=== PATIENT | female | born 1950 | race Caucasian/White ===

== ENCOUNTER 2020-12-27 10:31 | Observation (INO) | payer MEDICARE, BC ==
[2020-12-27] MEDS ORDERED: Sodium Chloride 0.9% 1,000 ML IV ONE (11:21)
[2020-12-27] MEDS ORDERED: Sodium Chloride 0.9% 2.5 ML Syringe FLUSH PRN (11:21)
[2020-12-27] MEDS ORDERED: Sodium Chloride 0.9% 10 ML Syringe FLUSH PRN (11:21)
--- NOTE | 2020-12-27 11:29 | PCM.EKG ---
#1 Interpretation EKG Date: 12/27/20 Time: 11:27 Rhythm: NSR Rate (Beats/Min): 83 ST-T: Normal
[2020-12-27 12:02] LABS: CARBON DIOXIDE,CO2 31.8 mmol/L (21.0-32.0)
[2020-12-27 12:16] LABS: POTASSIUM,K 2.6 mmol/L (3.5-5.1)
[2020-12-27] MEDS ORDERED: Ondansetron 4 MG/2 ML SDV IVPUSH ONE (12:16)
[2020-12-27] MEDS ORDERED: Potassium Chloride Riders 40 MEQ in Premix Bag 1 BAG IV ONE ×2 (12:21→12:45)
--- NOTE | 2020-12-27 12:28 | EDM.PDOC ---
ED HPI GENERAL MEDICAL PROBLEM - General Chief Complaint: General Stated Complaint: LOW K Time Seen by Provider: 12/27/20 10:32 Source of Information: Reports: Patient History Limitations: Reports: No Limitations - History of Present Illness INITIAL COMMENTS - FREE TEXT/NARRATIVE: HISTORY AND PHYSICAL: History of present illness: Patient is a 70-year-old female presents emergency room today with concern of low potassium and dizziness/near syncope x5 days. Patient states that she has had a complex medical history including breast cancer but is currently in remission for this. Patient states that she did have a skin biopsy that showed stage II keratosis which she is following with her primary care provider in [place] for. Patient states that she has been having routine labs drawn every 3 months due to her cancer history and recently had it checked with her primary care provider in [place]. Patient states that last week her potassium was low and so her primary care provider repleted this and she left [place] with her potassium at 3.6. Patient states that her primary care wanted to repeat the potassium yesterday and she had this drawn at the clinic and sent to [place]. Patient was called today stating she needed to come to the emergency room because her potassium was 2.6. Patient states that a week ago she was diagnosed with influenza and had associated her dizziness/near syncope episodes associated with the congestion from influenza. Patient states that she has been coughing up "a lot of mucus "and has been short of breath with exertion and related this to the influenza infection. Patient states that she is currently taking 60 mg of potassium today and states that she typically takes 80 mg daily. Patient denies fever, chills, chest pain. Denies headache, neck stiff ness, change in vision, syncope. Denies nausea, vomiting, abdominal pain, diarrhea, constipation, or dysuria. Has not noted any blood in urine or stool. Patient has been eating and drinking appropriately. Review of systems: As per history of present illness and below otherwise all systems reviewed and negative. Past medical history: As per history of present illness and as reviewed below otherwise noncontributory. Surgical history: As per history of present illness and as reviewed below otherwise noncontributory. Social history: See social history for further information Family history: As per history of present illness and as reviewed below otherwise noncontributory. Physical exam: General: Patient is alert, oriented, and in no acute distress. Patient sitting comfortably on exam table. Vitals stable and reviewed by me. HEENT: Atraumatic, normocephalic, pupils equal and reactive bilaterally, negative for conjunctival pallor or scleral icterus, mucous membranes moist, TMs normal bilaterally, throat clear, neck supple, nontender, trachea midline. No drooling or trismus noted. No meningeal signs. No hot potato voice noted. Lungs: Clear to auscultation, breath sounds equal bilaterally, chest nontender. Heart: S1S2, regular rate and rhythm without overt murmur Abdomen: Soft, nondistended, nontender. Negative for masses or hepatosplenomegaly. Negative for costovertebral tenderness. Pelvis: Stable nontender. Genitourinary: Deferred. Rectal: Deferred. Skin: Intact, warm, dry. No lesions or rashes noted. Extremities: Atraumatic, negative for cords or calf pain. Neurovascular unremarkable. Neuro: Awake, alert, oriented. Cranial nerves II through XII unremarkable. Cerebellum unremarkable. Motor and sensory unremarkable throughout. Exam non focal. Notes: Patient is a 70-year-old female who resents emergency room today with concern of low potassium, near syncope/lightheadedness, and dyspnea on exertion over the past 5 days. Upon arrival to the ED, patient is vitally stable and well- appearing on exam. However, while nursing staff obtaining IV access, patient does become dizzy and lightheaded sitting at the bedside which does improve when patient lays flat in the bed. She states that these are the dizzy episodes that she has been having over the past several days. Patient notes that she has had near syncope/possible syncopal episode last night but she does not want to explain much more than this so she does not want her to be concerned. Will perform cardiac evaluation, and head CT scan due to possible syncopal episode. See Dr. Elam's dictation for specific EKG interpretation. However, normal sinus rhythm with a rate of eighty-three without STEMI or signs of ischemic changes. Patient does express she is feeling nauseous. Zofran provided. CBC mild derangements are unremarkable. CMP noted to have a notably low potassium at 2.6. K rider initiated at this time. Creatinine mildly elevated at 1.1 and BUN mildly elevated at twenty-five. Troponin negative. Urinalysis clear. Covid/influenza negative. Head CT shows no acute intracranial abnormality. Paranasal sinus disease. Chest x-ray shows no acute cardiopulmonary disease. And CT shows no evidence of pulmonary embolism. Demonstration of likely reactive mediastinal and hilar lymph nodes with minimal groundglass opacity seen in the peripheral right upper lobe which may represent developing infiltrate versus sequela of inflammatory changes. There are likely posttreatment changes of the anterior right upper lobe pleura status post treatment change of overl arline right breast cancer. Postoperative changes status post likely thyroidectomy is appreciated. Moderate hiatal hernia and mild thickening of the upper esophagus this may represent sequela of peristolic or inflammatory changes. Mild to moderate central bronchial thickening and minimal air trapping within the lung bases. I did call and speak to the hospitalist on-call, Dr. Casillas, and thoroughly discussed patient's case. Will admit to observation on telemetry. Voices understanding and is agreeable to plan of care. Denies any further questions or concerns at this time. Diagnostics: EKG, CBC, CMP, UA, chest x-ray, magnesium, troponin, D-dimer, orthostatic vitals, COVID19, and CT, head CT Therapeutics: Normal saline, potassium rider, Zofran, Rocephin Impression: Hypokalemia Community-acquired pneumonia Dyspnea Plan: Admit to observation on telemetry to Dr. Casillas Definitive disposition and diagnosis as appropriate pending reevaluation and review of above. - Related Data Allergies Allergy/AdvReac Type Severity Reaction Status Date / Time diphenhydramine HCl Allergy Anaphylactic Verified 12/27/20 17:33 [From Benadryl] Shock scopolamine Allergy Nausea and Verified 12/27/20 17:33 Vomiting Home Meds: Home Meds Albuterol Sulfate [Proair Digihaler] 2 puff INH ASDIRECTED PRN 12/27/20 [ History] Calcium Carb, Citrate/Vit D3 [Calcium + D3 ER Tablet] 1 tab PO DAILY 12/27/20 [History] Cholecalciferol (Vitamin D3) [Vitamin D] 1 tab PO DAILY 12/27/20 [History] Citalopram [Citalopram HBr] 40 mg PO DAILY 12/27/20 [History] DULoxetine [Cymbalta] 60 mg PO DAILY 12/27/20 [History] Folic Acid 1 mg PO DAILY 12/27/20 [History] Ibandronate [Boniva] 150 mg PO DAILY 12/27/20 [History] Levothyroxine Sodium [Levoxyl] 75 mcg PO DAILY 12/27/20 [History] Magnesium 250 mg PO DAILY 12/27/20 [History] Omeprazole 20 mg PO DAILY 12/27/20 [History] Potassium Chloride 100 meq PO DAILY 12/27/20 [History] Rosuvastatin [Crestor] 20 mg PO BEDTIME 12/27/20 [History] atorvaSTATin [Lipitor] 40 mg PO DAILY 12/27/20 [History] Past Medical History Other HEENT History: Minimal lower teeth, trouble chewing "SOFT diet", RIGHT Inner Ear issues Other Respiratory History: Issues with breathing, noted in hospital when goes to sleep O2 sats drop (maybe needs sleep apnea study) but when awake always good, Restless at night too. / Maykel Spouse Other Musculoskeletal History: Current fracture Right Heel Psychiatric History: Reports: Anxiety Other Psychiatric History: Huge anxiety worse now with Pain Endocrine/Metabolic History: Reports: Osteoporosis Oncologic (Cancer) History: Reports: Breast - Infectious Disease History Infectious Disease History: Reports: Influenza - Past Surgical History Other GI Surgeries/Procedures: hx: Bowel obstruction with surgery Female Surgical History: Reports: Breast Biopsy Other Female Surgeries/Procedures: Numerous laparoscopies, eventually Hysterectomy. Cystitis Other Musculoskeletal Surgeries/Procedures:: Bilateral Total Knee ARthroplasties Social & Family History - Family History Family Medical History: No Pertinent Family History - Tobacco Use Tobacco Use Status *Q: Unknown Ever Used Tobacco - Recreational Drug Use Recreational Drug Use: No ED ROS GENERAL - Review of Systems Review Of Systems: Comprehensive ROS is negative, except as noted in HPI. ED EXAM, GENERAL - Physical Exam Exam: See Below (see dictation) Course - Vital Signs Last Recorded V/S: Last Vital Signs Temp 96.8 F L 12/27/20 16:51 Pulse 72 12/27/20 16:51 Resp 16 12/27/20 16:51 BP 106/59 L 12/27/20 16:51 Pulse Ox 99 12/27/20 16:51 - Orders/Labs/Meds Orders: Active Orders 24 hr Category Date Time Status Cardiac Monitoring [RC] . DIRECTED Care 12/27/20 11:21 Active Orthostatic Vital Signs [RC] ASDIRECTED Care 12/27/20 12:28 Active Sodium Chloride 0.9% [Saline Flush] Med 12/27/20 11:21 Active 10 ml FLUSH ASDIRECTED PRN Sodium Chloride 0.9% [Saline Flush] Med 12/27/20 11:21 Active 2.5 ml FLUSH ASDIRECTED PRN Saline Lock Insert [OM.PC] Stat Oth 12/27/20 11:21 Ordered Medication Orders Acetaminophen (Acetaminophen 325 Mg Tab) 650 mg PO Q4H PRN PRN Reason: Pain (Mild 1-3)/fever Albuterol/Ipratropium (Albuterol/Ipratropium 3.0-0.5 Mg/3 Ml Neb Soln) 3 ml NEB Q4HRRT PRN PRN Reason: Shortness Of Breath/wheezing Atorvastatin Calcium (Atorvastatin 40 Mg Tab) 40 mg PO DAILY ERIC Azithromycin (Azithromycin 500 Mg Vial) 250 mg IV Q24H ERIC Calcium Carbonate (Calcium Carbonate/Vitamin D3 1500 Mg-400 Units Tab) 1 tab PO DAILY ERIC Cholecalciferol (Cholecalciferol (Vitamin D3) 25 Mcg Tab) 125 mcg PO DAILY ERIC Duloxetine HCl (Duloxetine 60 Mg Cap) 60 mg PO DAILY ERIC Enoxaparin Sodium (Enoxaparin 40 Mg/0.4 Ml Syringe) 40 mg SUBCUT BEDTIME ERIC Folic Acid (Folic Acid 1 Mg Tab) 1 mg PO DAILY ERIC Lactated Ringer's (Ringers, Lactated) 1,000 mls @ 125 mls/hr IV ASDIRECTED ERIC Azithromycin 500 mg/ Sodium (Chloride) 250 mls @ 250 mls/hr IV ONETIME ERIC Ceftriaxone Sodium 1 gm/ (Sodium Chloride) 50 mls @ 100 mls/hr IV Q24H ERIC Levothyroxine Sodium (Levothyroxine 75 Mcg Tab) 75 mcg PO DAILY ERIC Mirtazapine (Mirtazapine 15 Mg Tab) 15 mg PO DAILY ERIC Sodium Chloride (Sodium Chloride 0.9% 10 Ml Syringe) 10 ml FLUSH ASDIRECTED PRN PRN Reason: Keep Vein Open Last Admin: 12/27/20 11:29 Dose: 10 ml Documented by: [id number] Sodium Chloride (Sodium Chloride 0.9% 2.5 Ml Syringe) 2.5 ml FLUSH ASDIRECTED PRN PRN Reason: Keep Vein Open Last Admin: 12/27/20 11:29 Dose: 2.5 ml Documented by: [id number] Labs: Laboratory Tests 12/27/20 12/27/2012/27/21 Range/Units 11:35 11:35 11:35 WBC 8.03 (4.0-11.0) K/uL RBC 4.65 (4.30-5.90) M/uL Hgb 12.6 (12.0-16.0) g/dL Hct 37.8 (36.0-46.0) % MCV 81.3 (80.0-98.0) fL MCH 27.1 (27.0-32.0) pg MCHC 33.3 (31.0-37.0) g/dL RDW Std Deviation 43.5 (28.0-62.0) fl RDW Coeff of Nancy 15 (11.0-15.0) % Plt Count 409 H (150-400) K/uL MPV 9.20 (7.40-12.00) fL Neut % (Auto) 64.9 (48.0-80.0) % Lymph % (Auto) 25.9 (16.0-40.0) % [place] % (Auto) 7.6 (0.0-15.0) % Eos % (Auto) 1.5 (0.0-7.0) % Baso % (Auto) 0.1 (0.0-1.5) % Neut # (Auto) 5.2 (1.4-5.7) K/uL Lymph # (Auto) 2.1 (0.6-2.4) K/uL [place] # (Auto) 0.6 (0.0-0.8) K/uL Eos # (Auto) 0.1 (0.0-0.7) K/uL Baso # (Auto) 0.0 (0.0-0.1) K/uL D-Dimer, Quantitative (0.0-0.50) mg/L FEU Sodium 139 (136-145) mmol/L Potassium 2.6 L (3.5-5.1) mmol/L Chloride 99 (98-107) mmol/L Carbon Dioxide 31.8 (21.0-32.0) mmol/L BUN 25 H (7.0-18.0) mg/dL Creatinine 1.1 H (0.6-1.0) mg/dL Est Cr Clr Drug Dosing 36.12 mL/min Estimated GFR (MDRD) 49.1 ml/min Glucose 93 (74-106) mg/dL Calcium 8.8 (8.5-10.1) mg/dL Magnesium (1.8-2.4) mg/dL Total Bilirubin 0.3 (0.2-1.0) mg/dL AST 31 (15-37) IU/L ALT 42 (14-63) IU/L Alkaline Phosphatase 108 (46-116) U/L Troponin I < 0.050 (0.000-0.056) ng/mL Total Protein 8.0 (6.4-8.2) g/dL Albumin 3.6 (3.4-5.0) g/dL Globulin 4.4 H (2.6-4.0) g/dL Albumin/Globulin Ratio 0.8 L (0.9-1.6) Urine Color Urine Appearance Urine pH (5.0-8.0) Ur Specific [place] (1.001-1.035) Urine Protein (NEGATIVE) mg/dL Urine Glucose (UA) (NEGATIVE) mg/dL Urine Ketones (NEGATIVE) mg/dL Urine Occult Blood (NEGATIVE) Urine Nitrite (NEGATIVE) Urine Bilirubin (NEGATIVE) Urine Urobilinogen (<2.0) EU/dL Ur Leukocyte Esterase (NEGATIVE) Influenza Type A RNA (NEGATIVE) Influenza Type B RNA (NEGATIVE) SARS-CoV-2 RNA (MARIO) (NEGATIVE) 12/27/20 12/27/20 12/27/20 Range/Units 11:35 11:48 12:36 WBC (4.0-11.0) K/uL RBC (4.30-5.90) M/uL Hgb (12.0-16.0) g/dL Hct (36.0-46.0) % MCV (80.0-98.0) fL MCH (27.0-32.0) pg MCHC (31.0-37.0) g/dL RDW Std Deviation (28.0-62.0) fl RDW Coeff of Nancy (11.0-15.0) % Plt Count (150-400) K/uL MPV (7.40-12.00) fL Neut % (Auto) (48.0-80.0) % Lymph % (Auto) (16.0-40.0) % [place] % (Auto) (0.0-15.0) % Eos % (Auto) (0.0-7.0) % Baso % (Auto) (0.0-1.5) % Neut # (Auto) (1.4-5.7) K/uL Lymph # (Auto) (0.6-2.4) K/uL [place] # (Auto) (0.0-0.8) K/uL Eos # (Auto) (0.0-0.7) K/uL Baso # (Auto) (0.0-0.1) K/uL D-Dimer, Quantitative 0.96 H (0.0-0.50) mg/L FEU Sodium (136-145) mmol/L Potassium (3.5-5.1) mmol/L Chloride (98-107) mmol/L Carbon Dioxide (21.0-32.0) mmol/L BUN (7.0-18.0) mg/dL Creatinine (0.6-1.0) mg/dL Est Cr Clr Drug Dosing mL/min Estimated GFR (MDRD) ml/min Glucose (74-106) mg/dL Calcium (8.5-10.1) mg/dL Magnesium 1.8 (1.8-2.4) mg/dL Total Bilirubin (0.2-1.0) mg/dL AST (15-37) IU/L ALT (14-63) IU/L Alkaline Phosphatase (46-116) U/L Troponin I (0.000-0.056) ng/mL Total Protein (6.4-8.2) g/dL Albumin (3.4-5.0) g/dL Globulin (2.6-4.0) g/dL Albumin/Globulin Ratio (0.9-1.6) Urine Color YELLOW Urine Appearance CLEAR Urine pH 6.5 (5.0-8.0) Ur Specific [place] 1.015 (1.001-1.035) Urine Protein NEGATIVE (NEGATIVE) mg/dL Urine Glucose (UA) NEGATIVE (NEGATIVE) mg/dL Urine Ketones NEGATIVE (NEGATIVE) mg/dL Urine Occult Blood NEGATIVE (NEGATIVE) Urine Nitrite NEGATIVE (NEGATIVE) Urine Bilirubin NEGATIVE (NEGATIVE) Urine Urobilinogen 0.2 (<2.0) EU/dL Ur Leukocyte Esterase NEGATIVE (NEGATIVE) Influenza Type A RNA (NEGATIVE) Influenza Type B RNA (NEGATIVE) SARS-CoV-2 RNA (MARIO) (NEGATIVE) 12/27/20 Range/Units 13:11 WBC (4.0-11.0) K/uL RBC (4.30-5.90) M/uL Hgb (12.0-16.0) g/dL Hct (36.0-46.0) % MCV (80.0-98.0) fL MCH (27.0-32.0) pg MCHC (31.0-37.0) g/dL RDW Std Deviation (28.0-62.0) fl RDW Coeff of Nancy (11.0-15.0) % Plt Count (150-400) K/uL MPV (7.40-12.00) fL Neut % (Auto) (48.0-80.0) % Lymph % (Auto) (16.0-40.0) % [place] % (Auto) (0.0-15.0) % Eos % (Auto) (0.0-7.0) % Baso % (Auto) (0.0-1.5) % Neut # (Auto) (1.4-5.7) K/uL Lymph # (Auto) (0.6-2.4) K/uL [place] # (Auto) (0.0-0.8) K/uL Eos # (Auto) (0.0-0.7) K/uL Baso # (Auto) (0.0-0.1) K/uL D-Dimer, Quantitative (0.0-0.50) mg/L FEU Sodium (136-145) mmol/L Potassium (3.5-5.1) mmol/L Chloride (98-107) mmol/L Carbon Dioxide (21.0-32.0) mmol/L BUN (7.0-18.0) mg/dL Creatinine (0.6-1.0) mg/dL Est Cr Clr Drug Dosing mL/min Estimated GFR (MDRD) ml/min Glucose (74-106) mg/dL Calcium (8.5-10.1) mg/dL Magnesium (1.8-2.4) mg/dL Total Bilirubin (0.2-1.0) mg/dL AST (15-37) IU/L ALT (14-63) IU/L Alkaline Phosphatase (46-116) U/L Troponin I (0.000-0.056) ng/mL Total Protein (6.4-8.2) g/dL Albumin (3.4-5.0) g/dL Globulin (2.6-4.0) g/dL Albumin/Globulin Ratio (0.9-1.6) Urine Color Urine Appearance Urine pH (5.0-8.0) Ur Specific [place] (1.001-1.035) Urine Protein (NEGATIVE) mg/dL Urine Glucose (UA) (NEGATIVE) mg/dL Urine Ketones (NEGATIVE) mg/dL Urine Occult Blood (NEGATIVE) Urine Nitrite (NEGATIVE) Urine Bilirubin (NEGATIVE) Urine Urobilinogen (<2.0) EU/dL Ur Leukocyte Esterase (NEGATIVE) Influenza Type A RNA NEGATIVE (NEGATIVE) Influenza Type B RNA NEGATIVE (NEGATIVE) SARS-CoV-2 RNA (MARIO) NEGATIVE (NEGATIVE) Meds: Medications Generic Name Dose Route Start Last Admin Trade Name Freq PRN Reason Stop Dose Admin Acetaminophen 650 mg 12/27/20 16:51 Acetaminophen 325 Mg Tab PO Q4H PRN Pain (Mild 1-3)/fever Albuterol/Ipratropium 3 ml 12/27/20 16:51 Albuterol/Ipratropium 3.0-0.5 Mg/3 Ml Neb Soln NEB Q4HRRT PRN Shortness Of Breath/wheezing Atorvastatin Calcium 40 mg 12/28/20 09:00 Atorvastatin 40 Mg Tab PO DAILY ERIC Azithromycin 250 mg 12/28/20 17:00 Azithromycin 500 Mg Vial IV Q24H ERIC Calcium Carbonate 1 tab 12/28/20 09:00 Calcium Carbonate/Vitamin D3 1500 Mg-400 Units Tab PO DAILY ERIC Cholecalciferol 125 mcg 12/28/20 09:00 Cholecalciferol (Vitamin D3) 25 Mcg Tab PO DAILY ERIC Duloxetine HCl 60 mg 12/28/20 09:00 Duloxetine 60 Mg Cap PO DAILY ERIC Enoxaparin Sodium 40 mg 12/27/20 21:00 Enoxaparin 40 Mg/0.4 Ml Syringe SUBCUT BEDTIME ERIC Folic Acid 1 mg 12/28/20 09:00 Folic Acid 1 Mg Tab PO DAILY ERIC Lactated Ringer's 1,000 mls @ 125 mls/hr 12/27/20 17:00 Ringers, Lactated IV ASDIRECTED [facility] Azithromycin 500 mg/ Sodium 250 mls @ 250 mls/hr 12/27/20 17:00 Chloride IV ONETIME ERIC Ceftriaxone Sodium 1 gm/ 50 mls @ 100 mls/hr 12/28/20 15:00 Sodium Chloride IV Q24H ERIC Levothyroxine Sodium 75 mcg 12/28/20 09:00 Levothyroxine 75 Mcg Tab PO DAILY ERIC Mirtazapine 15 mg 12/28/20 09:00 Mirtazapine 15 Mg Tab PO DAILY ERIC Sodium Chloride 10 ml 12/27/20 11:21 12/27/20 11:29 Sodium Chloride 0.9% 10 Ml Syringe FLUSH 10 ml ASDIRECTED PRN Administration Keep Vein Open Sodium Chloride 2.5 ml 12/27/20 11:21 12/27/20 11:29 Sodium Chloride 0.9% 2.5 Ml Syringe FLUSH 2.5 ml ASDIRECTED PRN Administration Keep Vein Open Discontinued Medications Generic Name Dose Route Start Last Admin Trade Name Freq PRN Reason Stop Dose Admin Sodium Chloride 1,000 mls @ 999 mls/hr 12/27/20 11:21 12/27/20 13:13 Normal Saline IV 12/27/20 12:21 150 mls/hr BOLUS ONE Infusion Potassium Chloride 40 meq/ 100 mls @ 25 mls/hr 12/27/20 12:21 12/27/20 13:14 Premix IV 12/27/20 16:20 Not Given ONETIME ONE Potassium Chloride 40 meq/ 100 mls @ 25 mls/hr 12/27/20 12:45 12/27/20 13:26 Premix IV 12/27/20 16:44 15 mls/hr ONETIME ONE Infusion Ceftriaxone Sodium/Dextrose 1 50 mls @ 100 mls/hr 12/27/20 15:23 12/27/20 15:31 gm/ Premix IV 12/27/20 15:52 100 mls/hr ONETIME ONE Administration Iopamidol 75 ml 12/27/20 14:55 12/27/20 14:56 Iopamidol 755 Mg/Ml 500 Ml Multipack Bottle IVPUSH 12/27/20 14:56 75 ml ONETIME ONE Administration Magnesium Oxide 800 mg 12/27/20 16:57 12/27/20 17:16 Magnesium Oxide 400 Mg Tab PO 12/27/20 16:58 800 mg ONETIME ONE Administration Ondansetron HCl 4 mg 12/27/20 12:16 12/27/20 12:55 Ondansetron 4 Mg/2 Ml Sdv IVPUSH 12/27/20 12:17 4 mg ONETIME ONE Administration Pneumococcal Polyvalent Vaccine 0.5 ml 12/27/20 18:44 Pneumococcal Polyvalent-23 Vaccine 0.5 Ml Sdv IM 12/27/20 18:45 .ONCE ONE Potassium Chloride 40 meq 12/27/20 16:51 12/27/20 17:16 Potassium Chloride 10% 20 Meq/15 Ml Soln 30 Ml Ud Cup PO 12/27/20 16:52 40 meq ONETIME ONE Administration Departure - Departure Time of Disposition: 15:29 Disposition: Refer to Observation Clinical Impression: Hypokalemia Community acquired pneumonia Qualifiers: Laterality: right Lung location: upper lobe of lung Qualified Code(s): J18.9 - Pneumonia, unspecified organism Dyspnea Qualifiers: Dyspnea type: dyspnea on exertion Qualified Code(s): R06.00 - Dyspnea, unspecified - Discharge Information Sepsis Event Note (ED) - Evaluation Sepsis Screening Result: No Definite Risk - Focused Exam Vital Signs: Vital Signs Temp Pulse Resp BP Pulse Ox 12/27/20 15:00 74 16 119/81 95 12/27/20 14:30 75 17 122/58 L 98 12/27/20 13:51 75 15 113/74 97 12/27/20 13:12 71 17 125/66 98 12/27/20 12:21 76 17 145/60 H 99 12/27/20 11:54 75 16 135/59 L 100 12/27/20 10:56 96.8 F L 94 17 133/80 97 - My Orders Last 24 Hours: My Active Orders 12/27/20 11:21 Cardiac Monitoring [RC] . DIRECTED Sodium Chloride 0.9% [Saline Flush] 10 ml FLUSH ASDIRECTED PRN Sodium Chloride 0.9% [Saline Flush] 2.5 ml FLUSH ASDIRECTED PRN Saline Lock Insert [OM.PC] Stat 12/27/20 12:28 Orthostatic Vital Signs [RC] ASDIRECTED - Assessment/Plan Last 24 Hours: My Active Orders 12/27/20 11:21 Cardiac Monitoring [RC] . DIRECTED Sodium Chloride 0.9% [Saline Flush] 10 ml FLUSH ASDIRECTED PRN Sodium Chloride 0.9% [Saline Flush] 2.5 ml FLUSH ASDIRECTED PRN Saline Lock Insert [OM.PC] Stat 12/27/20 12:28 Orthostatic Vital Signs [RC] ASDIRECTED
--- NOTE | 2020-12-27 12:57 | CR ---
INDICATION: Dyspnea. Productive cough. TECHNIQUE: Chest 1 view. COMPARISON: None FINDINGS: Cardiovascular and mediastinum: Heart size and vasculature are normal in caliber and appearance. Mediastinum is within normal limits. Lungs and pleural space: No consolidation or edema no pleural effusion. No pneumothorax. Bones and soft tissues: No acute findings. A foreign body overlies the right lower lung zone. IMPRESSION: No acute pulmonary process. Dictated by Alex Rojas MD @ 12/27/2020 12:55:[address] Alex Rojas @ Dec 27 2020 12:55PM
[2020-12-27 13:52] LABS: CORONAVIRUS COVID-19 NAA NEGATIVE (NEGATIVE); INFLUENZA A NAA NEGATIVE (NEGATIVE); INFLUENZA B NAA NEGATIVE (NEGATIVE)
--- NOTE | 2020-12-27 14:23 | CT ---
HISTORY: Syncope. TECHNIQUE: CT brain without contrast. COMPARISON: CT brain 06/05/2013. FINDINGS: No acute intracranial hemorrhage. No extra-axial collection. No mass effect or midline shift. No ventricular dilation. Cisterns are patent. Paz-white differentiation is maintained. Calvarium is intact. Complete opacification of the right maxillary sinus. Opacification of a majority of the right ethmoid air cells. Opacification of the inferior right frontal sinus. Mild mucosal thickening in the left sphenoid sinus. IMPRESSION: 1. No acute intracranial abnormality. 2. Paranasal sinus disease. Please note that all CT scans at this facility use dose modulation, iterative reconstruction, and/or weight-based dosing when appropriate to reduce radiation dose to as low as reasonably achievable. Dictated by Sanjay Dupree MD @ 12/27/2020 2:22:[address] Sanjay Dupree @ Dec 27 2020 2:22PM
[2020-12-27] MEDS ORDERED: Iopamidol 755 MG/ML 500 ML Multipack Bottle IVPUSH ONE (14:55)
--- NOTE | 2020-12-27 15:15 | CT ---
Indication: Dyspnea, elevated D-dimer, Technique: Volumetric multidetector CT images of the chest were obtained after the administration of IV contrast. 75 cc Isovue 370 low osmolar intravenous contrast Comparison: None available. Findings: Postoperative changes status post thyroidectomy are appreciated. Otherwise, the thoracic inlet is grossly unremarkable. The thoracic aorta is nonaneurysmal. There is no central filling defect to suggest pulmonary embolism. There are reactive appearing mediastinal and hilar lymph nodes. There is mild central bronchial thickening without evidence of dense consolidation. There is minimal basilar traction bronchiectasis. There is developing airspace opacities in the peripheral right upper lobes with dependent basilar atelectasis and parenchymal scarring. There is mild to moderate air trapping in the lower lobes. Pleural based posttreatment changes of the right anterior pleural space are appreciated commensurate with likely posttreatment changes from the adjacent right breast mass. There is demonstration noncalcified pulmonary nodule in the peripheral inferior right upper lobe on series 601, image 103 measuring 3.6 millimeters. No other suspicious pulmonary lesion is appreciated. The partially visualized upper abdomen demonstrates moderate hiatal hernia with mild thickening and patulous appearance of the proximal esophagus. The thoracic vertebral bodies are grossly preserved in height with straightening of the normal thoracic kyphosis and trace anterolisthesis of T2 on T3 as well as T5 on T6 with mild to moderate focal dextroscoliotic deformity of the proximal AP alignment. Impression: No evidence of pulmonary embolus. Demonstration of likely reactive mediastinal and hilar lymph nodes with minimal ground-glass opacity seen in the peripheral right upper lobe which may represent developing infiltrate versus sequela of inflammatory changes. There are likely posttreatment changes of the anterior right upper lobe pleura status post treatment change of overlying right breast cancer. Postoperative change status post total thyroidectomy is appreciated. Moderate hiatal hernia and mild thickening of the upper esophagus which may represent sequela of peristaltic or inflammatory changes. Mild to moderate central bronchial thickening and minimal air trapping within the lung bases. Please note that all CT scans at this facility use dose modulation, iterative reconstruction, and/or weight-based dosing when appropriate to reduce radiation dose to as low as reasonably achievable. Dictated by Mak Robbins MD @ 12/27/2020 3:14:[address] Mak Robbins @ Dec 27 2020 3:14PM
[2020-12-27] MEDS ORDERED: cefTRIAXone 1 GM in Premix Bag 1 BAG IV ONE (15:23)
[2020-12-27] MEDS ORDERED: Acetaminophen 325 MG Tab PO PRN (16:51)
[2020-12-27] MEDS ORDERED: Albuterol/Ipratropium 3.0-0.5 MG/3 ML Neb Soln NEB PRN (16:51)
[2020-12-27] MEDS ORDERED: Potassium Chloride 10% 20 MEQ/15 ML Soln 30 ML UD Cup PO ONE (16:51)
[2020-12-27] MEDS ORDERED: Magnesium Oxide 400 MG Tab PO ONE (16:57)
--- NOTE | 2020-12-27 16:57 | PCM.HP.2 ---
H&P History of Present Illness - General Date of Service: 12/28/20 Admit Problem/Dx: Admission Diagnosis/Problem Admission Diagnosis/Problem Hypokalemia - History of Present Illness Initial Comments - Free Text/Narative: Patient is a 70-year-old female with PMH of breast Ca, in remission, hypothyroidism, Squamous cell cancer, presents emergency room after being directed by her PCP to come to the ER due to low potassium on routine labs. Patient also feels dizzy/near syncope x5 days. Patient states that she did have a skin biopsy that showed stage II squamous cell ca which she is following with her primary care provider in [place] for. Patient states that last week her potassium was low and so her primary care provider repleted this and she left [place] with her potassium at 3.6. Patient states that her primary care wanted to repeat the potassium yesterday and she had this drawn at the clinic a nd sent to [place]. Patient was called today stating she needed to come to the emergency room because her potassium was 2.6. Patient states that a week ago she was diagnosed with influenza and was treated for it and since then she had associated dizziness/near syncope episodes . Patient states that she has been coughing a lot and has been short of breath with exertion and related this to the influenza infection. Patient states that she is currently taking 60 mg of potassium today and states that she typically takes 80 mg daily. Patient denies fever, chills, chest pain. Denies headache, neck stiff ness, change in vision, syncope. Denies nausea, vomiting, abdominal pain, diarrhea, constipation, or dysuria. Has not noted any blood in urine or stool. Patient has been eating and drinking appropriately. - Related Data Allergies/Adverse Reactions: Allergies Allergy/AdvReac Type Severity Reaction Status Date / Time diphenhydramine HCl Allergy Anaphylactic Verified 12/27/20 17:33 [From Benadryl] Shock scopolamine Allergy Nausea and Verified 12/27/20 17:33 Vomiting Home Medications: Home Meds Albuterol Sulfate [Proair Digihaler] 2 puff INH ASDIRECTED PRN 12/27/20 [History] Calcium Carb, Citrate/Vit D3 [Calcium + D3 ER Tablet] 1 tab PO DAILY 12/27/20 [History] Cholecalciferol (Vitamin D3) [Vitamin D] 1 tab PO DAILY 12/27/20 [History] Citalopram [Citalopram HBr] 40 mg PO DAILY 12/27/20 [History] DULoxetine [Cymbalta] 60 mg PO DAILY 12/27/20 [History] Folic Acid 1 mg PO DAILY 12/27/20 [History] Ibandronate [Boniva] 150 mg PO DAILY 12/27/20 [History] Levothyroxine Sodium [Levoxyl] 75 mcg PO DAILY 12/27/20 [History] Magnesium 250 mg PO DAILY 12/27/20 [History] Omeprazole 20 mg PO DAILY 12/27/20 [History] Potassium Chloride 100 meq PO DAILY 12/27/20 [History] Rosuvastatin [Crestor] 20 mg PO BEDTIME 12/27/20 [History] atorvaSTATin [Lipitor] 40 mg PO DAILY 12/27/20 [History] Past Medical History Other HEENT History: Minimal lower teeth, trouble chewing "SOFT diet", RIGHT Inner Ear issues Other Respiratory History: Issues with breathing, noted in hospital when goes to sleep O2 sats drop (maybe needs sleep apnea study) but when awake always good, Restless at night too. / Maykel Spouse Other Musculoskeletal History: Current fracture Right Heel Psychiatric History: Reports: Anxiety Other Psychiatric History: Huge anxiety worse now with Pain Endocrine/Metabolic History: Reports: Osteoporosis Oncologic (Cancer) History: Reports: Breast - Infectious Disease History Infectious Disease History: Reports: Influenza - Past Surgical History Other GI Surgeries/Procedures: hx: Bowel obstruction with surgery Female Surgical History: Reports: Breast Biopsy Other Female Surgeries/Procedures: Numerous laparoscopies, eventually Hysterectomy. Cystitis Other Musculoskeletal Surgeries/Procedures:: Bilateral Total Knee ARthroplasties Social & Family History - Family History Family Medical History: No Pertinent Family History - Tobacco Use Tobacco Use Status *Q: Unknown Ever Used Tobacco - Recreational Drug Use Recreational Drug Use: No H&P Review of Systems - Review of Systems: Review Of Systems: See Below General: Reports: Malaise, Weakness, Fatigue. Denies: Fever, Chills HEENT: Denies: Dysphasia, Ear Pain, Eye Pain Pulmonary: Reports: Shortness of Breath, Cough. Denies: Wheezing, Pleuritic Chest Pain Cardiovascular: Reports: Dyspnea on Exertion, Lightheadedness, Syncope. Denies: Chest Pain, Palpitations, Orthopnea Gastrointestinal: Denies: Abdominal Pain, Anorexia, Black Stool, Constipation, Distension, Hematemesis Genitourinary: Denies: Dysuria, Frequency, Pain Musculoskeletal: Denies: Neck Pain, Shoulder Pain, Arm Pain Skin: Denies: Cyanosis, Jaundice, Mottled, Pallor Psychiatric: Denies: Confusion, Depression, Mood Lability Exam - Exam Exam: See Below - Vital Signs Vital Signs: Last Vital Signs Temp 36.0 C L 12/27/20 10:56 Pulse 74 12/27/20 15:00 Resp 16 12/27/20 15:00 BP 119/81 12/27/20 15:00 Pulse Ox 95 12/27/20 15:00 Weight: 48.081 kg - Exam General: Alert, Oriented Lungs: Normal Respiratory Effort, Decreased Breath Sounds Cardiovascular: Regular Rate, Regular Rhythm, Systolic Murmur Extremities: Normal Inspection, Normal Range of Motion - Patient Data Lab Results Last 24 hrs: Laboratory Results - last 24 hr 12/27/20 12/27/20 12/27/20 Range/Units 11:35 11:35 11:35 WBC 8.03 (4.0-11.0) K/uL RBC 4.65 (4.30-5.90) M/uL Hgb 12.6 (12.0-16.0) g/dL Hct 37.8 (36.0-46.0) % MCV 81.3 (80.0-98.0) fL MCH 27.1 (27.0-32.0) pg MCHC 33.3 (31.0-37.0) g/dL RDW Std Deviation 43.5 (28.0-62.0) fl RDW Coeff of Nancy 15 (11.0-15.0) % Plt Count 409 H (150-400) K/uL MPV 9.20 (7.40-12.00) fL Neut % (Auto) 64.9 (48.0-80.0) % Lymph % (Auto) 25.9 (16.0-40.0) % Grimes % (Auto) 7.6 (0.0-15.0) % Eos % (Auto) 1.5 (0.0-7.0) % Baso % (Auto) 0.1 (0.0-1.5) % Neut # (Auto) 5.2 (1.4-5.7) K/uL Lymph # (Auto) 2.1 (0.6-2.4) K/uL Grimes # (Auto) 0.6 (0.0-0.8) K/uL Eos # (Auto) 0.1 (0.0-0.7) K/uL Baso # (Auto) 0.0 (0.0-0.1) K/uL D-Dimer, Quantitative (0.0-0.50) mg/L FEU Sodium 139 (136-145) mmol/L Potassium 2.6 L (3.5-5.1) mmol/L Chloride 99 (98-107) mmol/L Carbon Dioxide 31.8 (21.0-32.0) mmol/L BUN 25 H (7.0-18.0) mg/dL Creatinine 1.1 H (0.6-1.0) mg/dL Est Cr Clr Drug Dosing 36.12 mL/min Estimated GFR (MDRD) 49.1 ml/min Glucose 93 (74-106) mg/dL Calcium 8.8 (8.5-10.1) mg/dL Magnesium (1.8-2.4) mg/dL Total Bilirubin 0.3 (0.2-1.0) mg/dL AST 31 (15-37) IU/L ALT 42 (14-63) IU/L Alkaline Phosphatase 108 (46-116) U/L Troponin I < 0.050 (0.000-0.056) ng/mL Total Protein 8.0 (6.4-8.2) g/dL Albumin 3.6 (3.4-5.0) g/dL Globulin 4.4 H (2.6-4.0) g/dL Albumin/Globulin Ratio 0.8 L (0.9-1.6) Urine Color Urine Appearance Urine pH (5.0-8.0) Ur Specific [place] (1.001-1.035) Urine Protein (NEGATIVE) mg/dL Urine Glucose (UA) (NEGATIVE) mg/dL Urine Ketones (NEGATIVE) mg/dL Urine Occult Blood (NEGATIVE) Urine Nitrite (NEGATIVE) Urine Bilirubin (NEGATIVE) Urine Urobilinogen (<2.0) EU/dL Ur Leukocyte Esterase (NEGATIVE) Influenza Type A RNA (NEGATIVE) Influenza Type B RNA (NEGATIVE) SARS-CoV-2 RNA (MARIO) (NEGATIVE) 12/27/20 12/27/20 12/27/20 Range/Units 11:35 11:48 12:36 WBC (4.0-11.0) K/uL RBC (4.30-5.90) M/uL Hgb (12.0-16.0) g/dL Hct (36.0-46.0) % MCV (80.0-98.0) fL MCH (27.0-32.0) pg MCHC (31.0-37.0) g/dL RDW Std Deviation (28.0-62.0) fl RDW Coeff of Nancy (11.0-15.0) % Plt Count (150-400) K/uL MPV (7.40-12.00) fL Neut % (Auto) (48.0-80.0) % Lymph % (Auto) (16.0-40.0) % Grimes % (Auto) (0.0-15.0) % Eos % (Auto) (0.0-7.0) % Baso % (Auto) (0.0-1.5) % Neut # (Auto) (1.4-5.7) K/uL Lymph # (Auto) (0.6-2.4) K/uL Grimes # (Auto) (0.0-0.8) K/uL Eos # (Auto) (0.0-0.7) K/uL Baso # (Auto) (0.0-0.1) K/uL D-Dimer, Quantitative 0.96 H (0.0-0.50) mg/L FEU Sodium (136-145) mmol/L Potassium (3.5-5.1) mmol/L Chloride (98-107) mmol/L Carbon Dioxide (21.0-32.0) mmol/L BUN (7.0-18.0) mg/dL Creatinine (0.6-1.0) mg/dL Est Cr Clr Drug Dosing mL/min Estimated GFR (MDRD) ml/min Glucose (74-106) mg/dL Calcium (8.5-10.1) mg/dL Magnesium 1.8 (1.8-2.4) mg/dL Total Bilirubin (0.2-1.0) mg/dL AST (15-37) IU/L ALT (14-63) IU/L Alkaline Phosphatase (46-116) U/L Troponin I (0.000-0.056) ng/mL Total Protein (6.4-8.2) g/dL Albumin (3.4-5.0) g/dL Globulin (2.6-4.0) g/dL Albumin/Globulin Ratio (0.9-1.6) Urine Color YELLOW Urine Appearance CLEAR Urine pH 6.5 (5.0-8.0) Ur Specific [place] 1.015 (1.001-1.035) Urine Protein NEGATIVE (NEGATIVE) mg/dL Urine Glucose (UA) NEGATIVE (NEGATIVE) mg/dL Urine Ketones NEGATIVE (NEGATIVE) mg/dL Urine Occult Blood NEGATIVE (NEGATIVE) Urine Nitrite NEGATIVE (NEGATIVE) Urine Bilirubin NEGATIVE (NEGATIVE) Urine Urobilinogen 0.2 (<2.0) EU/dL Ur Leukocyte Esterase NEGATIVE (NEGATIVE) Influenza Type A RNA (NEGATIVE) Influenza Type B RNA (NEGATIVE) SARS-CoV-2 RNA (MARIO) (NEGATIVE) 12/27/20 Range/Units 13:11 WBC (4.0-11.0) K/uL RBC (4.30-5.90) M/uL Hgb (12.0-16.0) g/dL Hct (36.0-46.0) % MCV (80.0-98.0) fL MCH (27.0-32.0) pg MCHC (31.0-37.0) g/dL RDW Std Deviation (28.0-62.0) fl RDW Coeff of Nancy (11.0-15.0) % Plt Count (150-400) K/uL MPV (7.40-12.00) fL Neut % (Auto) (48.0-80.0) % Lymph % (Auto) (16.0-40.0) % Grimes % (Auto) (0.0-15.0) % Eos % (Auto) (0.0-7.0) % Baso % (Auto) (0.0-1.5) % Neut # (Auto) (1.4-5.7) K/uL Lymph # (Auto) (0.6-2.4) K/uL Grimes # (Auto) (0.0-0.8) K/uL Eos # (Auto) (0.0-0.7) K/uL Baso # (Auto) (0.0-0.1) K/uL D-Dimer, Quantitative (0.0-0.50) mg/L FEU Sodium (136-145) mmol/L Potassium (3.5-5.1) mmol/L Chloride (98-107) mmol/L Carbon Dioxide (21.0-32.0) mmol/L BUN (7.0-18.0) mg/dL Creatinine (0.6-1.0) mg/dL Est Cr Clr Drug Dosing mL/min Estimated GFR (MDRD) ml/min Glucose (74-106) mg/dL Calcium (8.5-10.1) mg/dL Magnesium (1.8-2.4) mg/dL Total Bilirubin (0.2-1.0) mg/dL AST (15-37) IU/L ALT (14-63) IU/L Alkaline Phosphatase (46-116) U/L Troponin I (0.000-0.056) ng/mL Total Protein (6.4-8.2) g/dL Albumin (3.4-5.0) g/dL Globulin (2.6-4.0) g/dL Albumin/Globulin Ratio (0.9-1.6) Urine Color Urine Appearance Urine pH (5.0-8.0) Ur Specific [place] (1.001-1.035) Urine Protein (NEGATIVE) mg/dL Urine Glucose (UA) (NEGATIVE) mg/dL Urine Ketones (NEGATIVE) mg/dL Urine Occult Blood (NEGATIVE) Urine Nitrite (NEGATIVE) Urine Bilirubin (NEGATIVE) Urine Urobilinogen (<2.0) EU/dL Ur Leukocyte Esterase (NEGATIVE) Influenza Type A RNA NEGATIVE (NEGATIVE) Influenza Type B RNA NEGATIVE (NEGATIVE) SARS-CoV-2 RNA (MARIO) NEGATIVE (NEGATIVE) Result Diagrams: 12/27/20 11:35 12/27/20 21:08 Sepsis Event Note - Evaluation Sepsis Screening Result: No Definite Risk - Focused Exam Vital Signs: Vital Signs Temp Pulse Resp BP Pulse Ox 12/27/20 15:00 74 16 119/81 95 12/27/20 14:30 75 17 122/58 L 98 12/27/20 13:51 75 15 113/74 97 12/27/20 13:12 71 17 125/66 98 12/27/20 12:21 76 17 145/60 H 99 12/27/20 11:54 75 16 135/59 L 100 12/27/20 10:56 36.0 C L 94 17 133/80 97 - Problem List (1) Dizziness SNOMED Code(s): 059370007, 080703468 ICD Code: R42 - DIZZINESS AND GIDDINESS Status: Acute Current Visit: Yes (2) Hypothyroid SNOMED Code(s): 72608088 ICD Code: E03.9 - HYPOTHYROIDISM, UNSPECIFIED Status: Acute Current Visit: Yes (3) Skin cancer SNOMED Code(s): 880614434 ICD Code: C44.90 - UNSPECIFIED MALIGNANT NEOPLASM OF SKIN, UNSPECIFIED Status: Acute Current Visit: Yes (4) Breast cancer SNOMED Code(s): 820933490 ICD Code: C50.919 - MALIGNANT NEOPLASM OF UNSP SITE OF UNSPECIFIED FEMALE BREAST Status: Acute Current Visit: Yes (5) Community acquired pneumonia SNOMED Code(s): 950249789 ICD Code: J18.9 - PNEUMONIA, UNSPECIFIED ORGANISM Status: Acute Current Visit: Yes Qualifiers: Laterality: right Lung location: upper lobe of lung Qualified Code(s): J18.9 - Pneumonia, unspecified organism (6) Hypokalemia SNOMED Code(s): 07911484 ICD Code: E87.6 - HYPOKALEMIA Status: Acute Current Visit: Yes Problem List Initiated/Reviewed/Updated: Yes Orders Last 24hrs: Active Orders 24 hr Category Date Time Status Admission Status [Patient Status] [ADT] Stat ADT 12/27/20 15:23 Active Ambulate [RC] ASDIRECTED Care 12/27/20 16:51 Active Antiembolic Devices [RC] PER UNIT ROUTINE Care 12/27/20 16:53 Active Cardiac Monitoring [RC] . DIRECTED Care 12/27/20 11:21 Active Orthostatic Vital Signs [RC] ASDIRECTED Care 12/27/20 12:28 Active Oxygen Therapy [RC] PRN Care 12/27/20 16:51 Active Pulse Oximetry [RC] PRN Care 12/27/20 16:51 Active RT Aerosol Therapy [RC] ASDIRECTED Care 12/27/20 16:53 Active Telemetry Monitoring [Cardiac Monitoring] [RC] Q8H Care 12/27/20 15:35 Active VTE/DVT Education [RC] PER UNIT ROUTINE Care 12/27/20 16:51 Active Vital Signs [RC] Q4H Care 12/27/20 16:51 Active POTASSIUM,K [CHEM] Routine Lab 12/27/20 21:00 Ordered Acetaminophen [TylenoL] Med 12/27/20 16:51 Ordered 650 mg PO Q4H PRN Albuterol/Ipratropium [DuoNeb 3.0-0.5 MG/3 ML] Med 12/27/20 16:51 Ordered 3 ml NEB Q4HRRT PRN Azithromycin [Zithromax] Med 12/28/20 09:00 Ordered 250 mg IV Q24H Azithromycin [Zithromax] 500 mg Med 12/27/20 17:00 Ordered Sodium Chloride 0.9% [Normal Saline (AdvBag)] 250 ml IV ONETIME Enoxaparin [Lovenox] Med 12/27/20 17:00 Ordered 30 mg SUBCUT Q24H Lactated Ringers [Ringers, Lactated] 1,000 ml Med 12/27/20 17:00 Ordered IV ASDIRECTED Magnesium Oxide Med 12/27/20 16:57 Once 800 mg PO ONETIME ONE Potassium Chloride Med 12/27/20 16:51 Once 40 meq PO ONETIME ONE Sodium Chloride 0.9% [Saline Flush] Med 12/27/20 11:21 Active 10 ml FLUSH ASDIRECTED PRN Sodium Chloride 0.9% [Saline Flush] Med 12/27/20 11:21 Active 2.5 ml FLUSH ASDIRECTED PRN cefTRIAXone [Rocephin] 1 gm Med 12/28/20 09:00 Ordered Sodium Chloride 0.9% [Normal Saline] 50 ml IV Q24H Saline Lock Insert [OM.PC] Stat Oth 12/27/20 11:21 Ordered Sequential Compression Device [OM.PC] Per Unit Routine Oth 12/27/20 16:52 Ordered Resuscitation Status Routine Resus Stat 12/27/20 16:51 Ordered Medication Orders Acetaminophen (Acetaminophen 325 Mg Tab) 650 mg PO Q4H PRN PRN Reason: Pain (Mild 1-3)/fever Albuterol/Ipratropium (Albuterol/Ipratropium 3.0-0.5 Mg/3 Ml Neb Soln) 3 ml NEB Q4HRRT PRN PRN Reason: Shortness Of Breath/wheezing Azithromycin (Azithromycin 500 Mg Vial) 250 mg IV Q24H ERIC Enoxaparin Sodium (Enoxaparin 30 Mg/0.3 Ml Syringe) 30 mg SUBCUT Q24H ERIC Lactated Ringer's (Ringers, Lactated) 1,000 mls @ 125 mls/hr IV ASDIRECTED ERIC Azithromycin 500 mg/ Sodium (Chloride) 250 mls @ 250 mls/hr IV ONETIME ERIC Ceftriaxone Sodium 1 gm/ (Sodium Chloride) 50 mls @ 100 mls/hr IV Q24H ERIC Potassium Chloride (Potassium Chloride 10% 20 Meq/15 Ml Soln 30 Ml Ud Cup) 40 meq PO ONETIME ONE Stop: 12/27/20 16:52 Sodium Chloride (Sodium Chloride 0.9% 10 Ml Syringe) 10 ml FLUSH ASDIRECTED PRN PRN Reason: Keep Vein Open Last Admin: 12/27/20 11:29 Dose: 10 ml Documented by: [id number] Sodium Chloride (Sodium Chloride 0.9% 2.5 Ml Syringe) 2.5 ml FLUSH ASDIRECTED PRN PRN Reason: Keep Vein Open Last Admin: 12/27/20 11:29 Dose: 2.5 ml Documented by: [id number] Assessment/Plan Comment:: 70 y/o F admitted for hypokalemia, dizziness, Pneumonia start IV fluids LR @ 125 cc/hr received IV potassium in ER, will give some oral as well and recheck K jeniffer tonight start IV antibiotics for pneumonia Robitussin for cough as needed Duonebs as need PRN SOB resume home meds as appropriate check Mg and phos will cont to monitor closely
[2020-12-27] MEDS ORDERED: Azithromycin 500 MG in Sodium Chloride 0.9% 250 ML IV SCH (17:00)
[2020-12-27] MEDS ORDERED: Pneumococcal Polyvalent-23 Vaccine 0.5 ML SDV IM ONE (18:44)
[2020-12-27] MEDS: Lactated Ringers 1,000 ML IV SCH (21:03)
[2020-12-27] MEDS: Enoxaparin 40 MG/0.4 ML Syringe SUBCUT SCH (21:12)
[2020-12-27] MEDS: Mirtazapine 15 MG Tab PO SCH (21:13)
[2020-12-28] MEDS: Lactated Ringers 1,000 ML IV SCH (06:27)
[2020-12-28 07:18] LABS: BLOOD UREA NITROGEN,BUN 13 mg/dL (7.0-18.0); CARBON DIOXIDE,CO2 29.9 mmol/L (21.0-32.0); CHLORIDE,CL 108 mmol/L (98-107); GLUCOSE RANDOM 86 mg/dL (74-106); POTASSIUM,K 3.1 mmol/L (3.5-5.1); SODIUM,NA 142 mmol/L (136-145)
[2020-12-28] MEDS: Cholecalciferol (Vitamin D3) 25 MCG Tab PO SCH (08:52)
[2020-12-28] MEDS: DULoxetine 60 MG Cap PO SCH (08:53)
[2020-12-28] MEDS: Folic Acid 1 MG Tab PO SCH (08:53)
[2020-12-28] MEDS: Levothyroxine 75 MCG Tab PO SCH (08:53)
[2020-12-28] MEDS: atorvaSTATin 40 MG Tab PO SCH (08:53)
[2020-12-28] MEDS: Calcium Carbonate/Vitamin D3 1500 MG-400 Units Tab PO SCH (08:53)
[2020-12-28] MEDS: guaiFENesin/Dextromethorphan 100-10 MG/5 ML Soln 10 ML Cup PO PRN ×2 (09:18→20:52)
--- NOTE | 2020-12-28 09:35 | PCM.PN ---
<Kadi Briscoe - Last Filed: 12/28/20 14:31> - General Info Date of Service: 12/28/20 Admission Dx/Problem (Free Text): Admission Diagnosis/Problem Admission Diagnosis/Problem Hypokalemia Subjective Update: Patient was seen at bedside, resting in bed comfortably, however experiencing frequent bouts of coughing. Otherwise, sleeping in bed after having her breakfast, only concern night due to the fluids her fingers are starting to swell. Otherwise denied any fever, chills, chest pain, shortness of breath. Functional Status: Reports: Tolerating Diet, Urinating, Incentive Spirometry - Review of Systems General: Reports: No Symptoms HEENT: Reports: No Symptoms Pulmonary: Reports: Cough, Sputum Cardiovascular: Reports: No Symptoms Gastrointestinal: Reports: No Symptoms Genitourinary: Reports: No Symptoms Musculoskeletal: Reports: No Symptoms Skin: Reports: No Symptoms Neurological: Reports: No Symptoms Psychiatric: Reports: No Symptoms - Patient Data Vitals - Most Recent: Last Vital Signs Temp 97.7 F 12/28/20 08:00 Pulse 93 12/28/20 08:00 Resp 18 12/28/20 08:00 BP 126/49 L 12/28/20 08:00 Pulse Ox 96 12/28/20 08:00 Weight - Most Recent: 48.081 kg I&O - Last 24 Hours: Intake & Output 12/27/20 12/28/20 12/28/20 22:59 06:59 14:59 Intake Total 1762 Output Total 400 Balance 1362 Lab Results Last 24 Hours: Laboratory Results - last 24 hr 12/27/20 12/27/20 12/27/20 Range/Units 11:35 11:35 11:35 WBC 8.03 (4.0-11.0) K/uL RBC 4.65 (4.30-5.90) M/uL Hgb 12.6 (12.0-16.0) g/dL Hct 37.8 (36.0-46.0) % MCV 81.3 (80.0-98.0) fL MCH 27.1 (27.0-32.0) pg MCHC 33.3 (31.0-37.0) g/dL RDW Std Deviation 43.5 (28.0-62.0) fl RDW Coeff of Nancy 15 (11.0-15.0) % Plt Count 409 H (150-400) K/uL MPV 9.20 (7.40-12.00) fL Neut % (Auto) 64.9 (48.0-80.0) % Lymph % (Auto) 25.9 (16.0-40.0) % [place] % (Auto) 7.6 (0.0-15.0) % Eos % (Auto) 1.5 (0.0-7.0) % Baso % (Auto) 0.1 (0.0-1.5) % Neut # (Auto) 5.2 (1.4-5.7) K/uL Lymph # (Auto) 2.1 (0.6-2.4) K/uL [place] # (Auto) 0.6 (0.0-0.8) K/uL Eos # (Auto) 0.1 (0.0-0.7) K/uL Baso # (Auto) 0.0 (0.0-0.1) K/uL D-Dimer, Quantitative (0.0-0.50) mg/L FEU Sodium 139 (136-145) mmol/L Potassium 2.6 L (3.5-5.1) mmol/L Chloride 99 (98-107) mmol/L Carbon Dioxide 31.8 (21.0-32.0) mmol/L BUN 25 H (7.0-18.0) mg/dL Creatinine 1.1 H (0.6-1.0) mg/dL Est Cr Clr Drug Dosing 36.12 mL/min Estimated GFR (MDRD) 49.1 ml/min Glucose 93 (74-106) mg/dL Calcium 8.8 (8.5-10.1) mg/dL Phosphorus (2.6-4.7) mg/dL Magnesium (1.8-2.4) mg/dL Total Bilirubin 0.3 (0.2-1.0) mg/dL AST 31 (15-37) IU/L ALT 42 (14-63) IU/L Alkaline Phosphatase 108 (46-116) U/L Troponin I < 0.050 (0.000-0.056) ng/mL Total Protein 8.0 (6.4-8.2) g/dL Albumin 3.6 (3.4-5.0) g/dL Globulin 4.4 H (2.6-4.0) g/dL Albumin/Globulin Ratio 0.8 L (0.9-1.6) Urine Color Urine Appearance Urine pH (5.0-8.0) Ur Specific [place] (1.001-1.035) Urine Protein (NEGATIVE) mg/dL Urine Glucose (UA) (NEGATIVE) mg/dL Urine Ketones (NEGATIVE) mg/dL Urine Occult Blood (NEGATIVE) Urine Nitrite (NEGATIVE) Urine Bilirubin (NEGATIVE) Urine Urobilinogen (<2.0) EU/dL Ur Leukocyte Esterase (NEGATIVE) Influenza Type A RNA (NEGATIVE) Influenza Type B RNA (NEGATIVE) SARS-CoV-2 RNA (MARIO) (NEGATIVE) 12/27/20 12/27/20 12/27/20 Range/Units 11:35 11:48 12:36 WBC (4.0-11.0) K/uL RBC (4.30-5.90) M/uL Hgb (12.0-16.0) g/dL Hct (36.0-46.0) % MCV (80.0-98.0) fL MCH (27.0-32.0) pg MCHC (31.0-37.0) g/dL RDW Std Deviation (28.0-62.0) fl RDW Coeff of Nancy (11.0-15.0) % Plt Count (150-400) K/uL MPV (7.40-12.00) fL Neut % (Auto) (48.0-80.0) % Lymph % (Auto) (16.0-40.0) % [place] % (Auto) (0.0-15.0) % Eos % (Auto) (0.0-7.0) % Baso % (Auto) (0.0-1.5) % Neut # (Auto) (1.4-5.7) K/uL Lymph # (Auto) (0.6-2.4) K/uL [place] # (Auto) (0.0-0.8) K/uL Eos # (Auto) (0.0-0.7) K/uL Baso # (Auto) (0.0-0.1) K/uL D-Dimer, Quantitative 0.96 H (0.0-0.50) mg/L FEU Sodium (136-145) mmol/L Potassium (3.5-5.1) mmol/L Chloride (98-107) mmol/L Carbon Dioxide (21.0-32.0) mmol/L BUN (7.0-18.0) mg/dL Creatinine (0.6-1.0) mg/dL Est Cr Clr Drug Dosing mL/min Estimated GFR (MDRD) ml/min Glucose (74-106) mg/dL Calcium (8.5-10.1) mg/dL Phosphorus (2.6-4.7) mg/dL Magnesium 1.8 (1.8-2.4) mg/dL Total Bilirubin (0.2-1.0) mg/dL AST (15-37) IU/L ALT (14-63) IU/L Alkaline Phosphatase (46-116) U/L Troponin I (0.000-0.056) ng/mL Total Protein (6.4-8.2) g/dL Albumin (3.4-5.0) g/dL Globulin (2.6-4.0) g/dL Albumin/Globulin Ratio (0.9-1.6) Urine Color YELLOW Urine Appearance CLEAR Urine pH 6.5 (5.0-8.0) Ur Specific [place] 1.015 (1.001-1.035) Urine Protein NEGATIVE (NEGATIVE) mg/dL Urine Glucose (UA) NEGATIVE (NEGATIVE) mg/dL Urine Ketones NEGATIVE (NEGATIVE) mg/dL Urine Occult Blood NEGATIVE (NEGATIVE) Urine Nitrite NEGATIVE (NEGATIVE) Urine Bilirubin NEGATIVE (NEGATIVE) Urine Urobilinogen 0.2 (<2.0) EU/dL Ur Leukocyte Esterase NEGATIVE (NEGATIVE) Influenza Type A RNA (NEGATIVE) Influenza Type B RNA (NEGATIVE) SARS-CoV-2 RNA (MARIO) (NEGATIVE) 12/27/20 12/27/20 12/28/20 Range/Units 13:11 21:08 06:45 WBC 5.24 (4.0-11.0) K/uL RBC 4.03 L (4.30-5.90) M/uL Hgb 11.0 L (12.0-16.0) g/dL Hct 33.9 L (36.0-46.0) % MCV 84.1 (80.0-98.0) fL MCH 27.3 (27.0-32.0) pg MCHC 32.4 (31.0-37.0) g/dL RDW Std Deviation 45.8 (28.0-62.0) fl RDW Coeff of Nancy 15 (11.0-15.0) % Plt Count 306 (150-400) K/uL MPV 9.50 (7.40-12.00) fL Neut % (Auto) 56.8 (48.0-80.0) % Lymph % (Auto) 33.6 (16.0-40.0) % [place] % (Auto) 6.5 (0.0-15.0) % Eos % (Auto) 2.9 (0.0-7.0) % Baso % (Auto) 0.2 (0.0-1.5) % Neut # (Auto) 3.0 (1.4-5.7) K/uL Lymph # (Auto) 1.8 (0.6-2.4) K/uL [place] # (Auto) 0.3 (0.0-0.8) K/uL Eos # (Auto) 0.2 (0.0-0.7) K/uL Baso # (Auto) 0.0 (0.0-0.1) K/uL D-Dimer, Quantitative (0.0-0.50) mg/L FEU Sodium (136-145) mmol/L Potassium 3.5 (3.5-5.1) mmol/L Chloride (98-107) mmol/L Carbon Dioxide (21.0-32.0) mmol/L BUN (7.0-18.0) mg/dL Creatinine (0.6-1.0) mg/dL Est Cr Clr Drug Dosing mL/min Estimated GFR (MDRD) ml/min Glucose (74-106) mg/dL Calcium (8.5-10.1) mg/dL Phosphorus (2.6-4.7) mg/dL Magnesium (1.8-2.4) mg/dL Total Bilirubin (0.2-1.0) mg/dL AST (15-37) IU/L ALT (14-63) IU/L Alkaline Phosphatase (46-116) U/L Troponin I (0.000-0.056) ng/mL Total Protein (6.4-8.2) g/dL Albumin (3.4-5.0) g/dL Globulin (2.6-4.0) g/dL Albumin/Globulin Ratio (0.9-1.6) Urine Color Urine Appearance Urine pH (5.0-8.0) Ur Specific [place] (1.001-1.035) Urine Protein (NEGATIVE) mg/dL Urine Glucose (UA) (NEGATIVE) mg/dL Urine Ketones (NEGATIVE) mg/dL Urine Occult Blood (NEGATIVE) Urine Nitrite (NEGATIVE) Urine Bilirubin (NEGATIVE) Urine Urobilinogen (<2.0) EU/dL Ur Leukocyte Esterase (NEGATIVE) Influenza Type A RNA NEGATIVE (NEGATIVE) Influenza Type B RNA NEGATIVE (NEGATIVE) SARS-CoV-2 RNA (MARIO) NEGATIVE (NEGATIVE) 12/28/20 Range/Units 06:45 WBC (4.0-11.0) K/uL RBC (4.30-5.90) M/uL Hgb (12.0-16.0) g/dL Hct (36.0-46.0) % MCV (80.0-98.0) fL MCH (27.0-32.0) pg MCHC (31.0-37.0) g/dL RDW Std Deviation (28.0-62.0) fl RDW Coeff of Nancy (11.0-15.0) % Plt Count (150-400) K/uL MPV (7.40-12.00) fL Neut % (Auto) (48.0-80.0) % Lymph % (Auto) (16.0-40.0) % [place] % (Auto) (0.0-15.0) % Eos % (Auto) (0.0-7.0) % Baso % (Auto) (0.0-1.5) % Neut # (Auto) (1.4-5.7) K/uL Lymph # (Auto) (0.6-2.4) K/uL [place] # (Auto) (0.0-0.8) K/uL Eos # (Auto) (0.0-0.7) K/uL Baso # (Auto) (0.0-0.1) K/uL D-Dimer, Quantitative (0.0-0.50) mg/L FEU Sodium 142 (136-145) mmol/L Potassium 3.1 L (3.5-5.1) mmol/L Chloride 108 H (98-107) mmol/L Carbon Dioxide 29.9 (21.0-32.0) mmol/L BUN 13 (7.0-18.0) mg/dL Creatinine 0.7 (0.6-1.0) mg/dL Est Cr Clr Drug Dosing 56.76 mL/min Estimated GFR (MDRD) > 60.0 ml/min Glucose 86 (74-106) mg/dL Calcium 8.2 L (8.5-10.1) mg/dL Phosphorus 2.7 (2.6-4.7) mg/dL Magnesium 1.9 (1.8-2.4) mg/dL Total Bilirubin (0.2-1.0) mg/dL AST (15-37) IU/L ALT (14-63) IU/L Alkaline Phosphatase (46-116) U/L Troponin I (0.000-0.056) ng/mL Total Protein (6.4-8.2) g/dL Albumin (3.4-5.0) g/dL Globulin (2.6-4.0) g/dL Albumin/Globulin Ratio (0.9-1.6) Urine Color Urine Appearance Urine pH (5.0-8.0) Ur Specific [place] (1.001-1.035) Urine Protein (NEGATIVE) mg/dL Urine Glucose (UA) (NEGATIVE) mg/dL Urine Ketones (NEGATIVE) mg/dL Urine Occult Blood (NEGATIVE) Urine Nitrite (NEGATIVE) Urine Bilirubin (NEGATIVE) Urine Urobilinogen (<2.0) EU/dL Ur Leukocyte Esterase (NEGATIVE) Influenza Type A RNA (NEGATIVE) Influenza Type B RNA (NEGATIVE) SARS-CoV-2 RNA (MARIO) (NEGATIVE) Med Orders - Current: Current Medications Acetaminophen (Acetaminophen 325 Mg Tab) 650 mg PO Q4H PRN PRN Reason: Pain (Mild 1-3)/fever Last Admin: 12/28/20 09:18 Dose: 650 mg Documented by: Albuterol/Ipratropium (Albuterol/Ipratropium 3.0-0.5 Mg/3 Ml Neb Soln) 3 ml NEB Q4HRRT PRN PRN Reason: Shortness Of Breath/wheezing Atorvastatin Calcium (Atorvastatin 40 Mg Tab) 40 mg PO DAILY [facility] Last Admin: 12/28/20 08:53 Dose: 40 mg Documented by: Azithromycin (Azithromycin 500 Mg Vial) 250 mg IV Q24H [facility] Calcium Carbonate (Calcium Carbonate/Vitamin D3 1500 Mg-400 Units Tab) 1 tab PO DAILY [facility] Last Admin: 12/28/20 08:53 Dose: 1 tab Documented by: Cholecalciferol (Cholecalciferol (Vitamin D3) 25 Mcg Tab) 125 mcg PO DAILY [facility] Last Admin: 12/28/20 08:52 Dose: 125 mcg Documented by: Duloxetine HCl (Duloxetine 60 Mg Cap) 60 mg PO DAILY [facility] Last Admin: 12/28/20 08:53 Dose: 60 mg Documented by: Enoxaparin Sodium (Enoxaparin 40 Mg/0.4 Ml Syringe) 40 mg SUBCUT BEDTIME [facility] Last Admin: 12/27/20 21:12 Dose: 40 mg Documented by: Folic Acid (Folic Acid 1 Mg Tab) 1 mg PO DAILY [facility] Last Admin: 12/28/20 08:53 Dose: 1 mg Documented by: Guaifenesin/Dextromethorphan (Guaifenesin/Dextromethorphan 100-10 Mg/5 Ml Soln 10 Ml Cup) 10 ml PO Q4H PRN PRN Reason: Cough Last Admin: 12/28/20 09:18 Dose: 10 ml Documented by: Lactated Ringer's (Ringers, Lactated) 1,000 mls @ 125 mls/hr IV ASDIRECTED [facility] Last Admin: 12/28/20 06:27 Dose: 125 mls/hr Documented by: Azithromycin 500 mg/ Sodium (Chloride) 250 mls @ 250 mls/hr IV ONETIME [facility] Last Admin: 12/27/20 21:12 Dose: 250 mls/hr Documented by: Ceftriaxone Sodium 1 gm/ (Sodium Chloride) 50 mls @ 100 mls/hr IV Q24H [facility] Levothyroxine Sodium (Levothyroxine 75 Mcg Tab) 75 mcg PO DAILY [facility] Last Admin: 12/28/20 08:53 Dose: 75 mcg Documented by: Mirtazapine (Mirtazapine 15 Mg Tab) 15 mg PO BEDTIME [facility] Last Admin: 12/27/20 21:13 Dose: 15 mg Documented by: Sodium Chloride (Sodium Chloride 0.9% 10 Ml Syringe) 10 ml FLUSH ASDIRECTED PRN PRN Reason: Keep Vein Open Last Admin: 12/27/20 11:29 Dose: 10 ml Documented by: Sodium Chloride (Sodium Chloride 0.9% 2.5 Ml Syringe) 2.5 ml FLUSH ASDIRECTED PRN PRN Reason: Keep Vein Open Last Admin: 12/27/20 11:29 Dose: 2.5 ml Documented by: Discontinued Medications Sodium Chloride (Normal Saline) 1,000 mls @ 999 mls/hr IV BOLUS ONE Stop: 12/27/20 12:21 Last Infusion: 12/27/20 13:13 Dose: 150 mls/hr Documented by: Potassium Chloride 40 meq/ (Premix) 100 mls @ 25 mls/hr IV ONETIME ONE Stop: 12/27/20 16:20 Last Admin: 12/27/20 13:14 Dose: Not Given Documented by: Potassium Chloride 40 meq/ (Premix) 100 mls @ 25 mls/hr IV ONETIME ONE Stop: 12/27/20 16:44 Last Infusion: 12/27/20 13:26 Dose: 15 mls/hr Documented by: Ceftriaxone Sodium/Dextrose 1 (gm/ Premix) 50 mls @ 100 mls/hr IV ONETIME ONE Stop: 12/27/20 15:52 Last Admin: 12/27/20 15:31 Dose: 100 mls/hr Documented by: Iopamidol (Iopamidol 755 Mg/Ml 500 Ml Multipack Bottle) 75 ml IVPUSH ONETIME ONE Stop: 12/27/20 14:56 Last Admin: 12/27/20 14:56 Dose: 75 ml Documented by: Magnesium Oxide (Magnesium Oxide 400 Mg Tab) 800 mg PO ONETIME ONE Stop: 12/27/20 16:58 Last Admin: 12/27/20 17:16 Dose: 800 mg Documented by: Ondansetron HCl (Ondansetron 4 Mg/2 Ml Sdv) 4 mg IVPUSH ONETIME ONE Stop: 12/27/20 12:17 Last Admin: 12/27/20 12:55 Dose: 4 mg Documented by: Pneumococcal Polyvalent Vaccine (Pneumococcal Polyvalent-23 Vaccine 0.5 Ml Sdv) 0.5 ml IM .ONCE ONE Stop: 12/27/20 18:45 Potassium Chloride (Potassium Chloride 10% 20 Meq/15 Ml Soln 30 Ml Ud Cup) 40 meq PO ONETIME ONE Stop: 12/27/20 16:52 Last Admin: 12/27/20 17:16 Dose: 40 meq Documented by: - Exam Quality Assessment: DVT Prophylaxis General: Alert, Oriented, Cooperative, No Acute Distress HEENT: Pupils Equal, Pupils Reactive, EOMI, Mucous Membr. Moist/[place] Neck: Supple Lungs: Clear to Auscultation, Normal Respiratory Effort Cardiovascular: Regular Rate, Regular Rhythm GI/Abdominal Exam: Normal Bowel Sounds, Soft, Non-Tender, No Organomegaly Back Exam: Normal Inspection, Full Range of Motion Extremities: Normal Inspection, Normal Range of Motion, Non-Tender, No Pedal Edema, Normal Capillary Refill, Pedal Edema Peripheral Pulses: 2+: Carotid (L), Carotid (R), Dorsalis Pedis (L), Dorsalis Pedis (R) Skin: Warm, Dry, Intact Neurological: No New Focal Deficit Psy/Mental Status: Alert, Normal Affect, Normal Mood - Patient Data Lab Results Last 24 hrs: Laboratory Results - last 24 hr 12/27/20 12/27/20 12/27/20 Range/Units 11:35 11:35 11:35 WBC 8.03 (4.0-11.0) K/uL RBC 4.65 (4.30-5.90) M/uL Hgb 12.6 (12.0-16.0) g/dL Hct 37.8 (36.0-46.0) % MCV 81.3 (80.0-98.0) fL MCH 27.1 (27.0-32.0) pg MCHC 33.3 (31.0-37.0) g/dL RDW Std Deviation 43.5 (28.0-62.0) fl RDW Coeff of Nancy 15 (11.0-15.0) % Plt Count 409 H (150-400) K/uL MPV 9.20 (7.40-12.00) fL Neut % (Auto) 64.9 (48.0-80.0) % Lymph % (Auto) 25.9 (16.0-40.0) % [place] % (Auto) 7.6 (0.0-15.0) % Eos % (Auto) 1.5 (0.0-7.0) % Baso % (Auto) 0.1 (0.0-1.5) % Neut # (Auto) 5.2 (1.4-5.7) K/uL Lymph # (Auto) 2.1 (0.6-2.4) K/uL [place] # (Auto) 0.6 (0.0-0.8) K/uL Eos # (Auto) 0.1 (0.0-0.7) K/uL Baso # (Auto) 0.0 (0.0-0.1) K/uL D-Dimer, Quantitative (0.0-0.50) mg/L FEU Sodium 139 (136-145) mmol/L Potassium 2.6 L (3.5-5.1) mmol/L Chloride 99 (98-107) mmol/L Carbon Dioxide 31.8 (21.0-32.0) mmol/L BUN 25 H (7.0-18.0) mg/dL Creatinine 1.1 H (0.6-1.0) mg/dL Est Cr Clr Drug Dosing 36.12 mL/min Estimated GFR (MDRD) 49.1 ml/min Glucose 93 (74-106) mg/dL Calcium 8.8 (8.5-10.1) mg/dL Phosphorus (2.6-4.7) mg/dL Magnesium (1.8-2.4) mg/dL Total Bilirubin 0.3 (0.2-1.0) mg/dL AST 31 (15-37) IU/L ALT 42 (14-63) IU/L Alkaline Phosphatase 108 (46-116) U/L Troponin I < 0.050 (0.000-0.056) ng/mL Total Protein 8.0 (6.4-8.2) g/dL Albumin 3.6 (3.4-5.0) g/dL Globulin 4.4 H (2.6-4.0) g/dL Albumin/Globulin Ratio 0.8 L (0.9-1.6) Urine Color Urine Appearance Urine pH (5.0-8.0) Ur Specific [place] (1.001-1.035) Urine Protein (NEGATIVE) mg/dL Urine Glucose (UA) (NEGATIVE) mg/dL Urine Ketones (NEGATIVE) mg/dL Urine Occult Blood (NEGATIVE) Urine Nitrite (NEGATIVE) Urine Bilirubin (NEGATIVE) Urine Urobilinogen (<2.0) EU/dL Ur Leukocyte Esterase (NEGATIVE) Influenza Type A RNA (NEGATIVE) Influenza Type B RNA (NEGATIVE) SARS-CoV-2 RNA (MARIO) (NEGATIVE) 12/27/20 12/27/20 12/27/20 Range/Units 11:35 11:48 12:36 WBC (4.0-11.0) K/uL RBC (4.30-5.90) M/uL Hgb (12.0-16.0) g/dL Hct (36.0-46.0) % MCV (80.0-98.0) fL MCH (27.0-32.0) pg MCHC (31.0-37.0) g/dL RDW Std Deviation (28.0-62.0) fl RDW Coeff of Nancy (11.0-15.0) % Plt Count (150-400) K/uL MPV (7.40-12.00) fL Neut % (Auto) (48.0-80.0) % Lymph % (Auto) (16.0-40.0) % [place] % (Auto) (0.0-15.0) % Eos % (Auto) (0.0-7.0) % Baso % (Auto) (0.0-1.5) % Neut # (Auto) (1.4-5.7) K/uL Lymph # (Auto) (0.6-2.4) K/uL [place] # (Auto) (0.0-0.8) K/uL Eos # (Auto) (0.0-0.7) K/uL Baso # (Auto) (0.0-0.1) K/uL D-Dimer, Quantitative 0.96 H (0.0-0.50) mg/L FEU Sodium (136-145) mmol/L Potassium (3.5-5.1) mmol/L Chloride (98-107) mmol/L Carbon Dioxide (21.0-32.0) mmol/L BUN (7.0-18.0) mg/dL Creatinine (0.6-1.0) mg/dL Est Cr Clr Drug Dosing mL/min Estimated GFR (MDRD) ml/min Glucose (74-106) mg/dL Calcium (8.5-10.1) mg/dL Phosphorus (2.6-4.7) mg/dL Magnesium 1.8 (1.8-2.4) mg/dL Total Bilirubin (0.2-1.0) mg/dL AST (15-37) IU/L ALT (14-63) IU/L Alkaline Phosphatase (46-116) U/L Troponin I (0.000-0.056) ng/mL Total Protein (6.4-8.2) g/dL Albumin (3.4-5.0) g/dL Globulin (2.6-4.0) g/dL Albumin/Globulin Ratio (0.9-1.6) Urine Color YELLOW Urine Appearance CLEAR Urine pH 6.5 (5.0-8.0) Ur Specific [place] 1.015 (1.001-1.035) Urine Protein NEGATIVE (NEGATIVE) mg/dL Urine Glucose (UA) NEGATIVE (NEGATIVE) mg/dL Urine Ketones NEGATIVE (NEGATIVE) mg/dL Urine Occult Blood NEGATIVE (NEGATIVE) Urine Nitrite NEGATIVE (NEGATIVE) Urine Bilirubin NEGATIVE (NEGATIVE) Urine Urobilinogen 0.2 (<2.0) EU/dL Ur Leukocyte Esterase NEGATIVE (NEGATIVE) Influenza Type A RNA (NEGATIVE) Influenza Type B RNA (NEGATIVE) SARS-CoV-2 RNA (MARIO) (NEGATIVE) 12/27/20 12/27/20 12/28/20 Range/Units 13:11 21:08 06:45 WBC 5.24 (4.0-11.0) K/uL RBC 4.03 L (4.30-5.90) M/uL Hgb 11.0 L (12.0-16.0) g/dL Hct 33.9 L (36.0-46.0) % MCV 84.1 (80.0-98.0) fL MCH 27.3 (27.0-32.0) pg MCHC 32.4 (31.0-37.0) g/dL RDW Std Deviation 45.8 (28.0-62.0) fl RDW Coeff of Nancy 15 (11.0-15.0) % Plt Count 306 (150-400) K/uL MPV 9.50 (7.40-12.00) fL Neut % (Auto) 56.8 (48.0-80.0) % Lymph % (Auto) 33.6 (16.0-40.0) % [place] % (Auto) 6.5 (0.0-15.0) % Eos % (Auto) 2.9 (0.0-7.0) % Baso % (Auto) 0.2 (0.0-1.5) % Neut # (Auto) 3.0 (1.4-5.7) K/uL Lymph # (Auto) 1.8 (0.6-2.4) K/uL [place] # (Auto) 0.3 (0.0-0.8) K/uL Eos # (Auto) 0.2 (0.0-0.7) K/uL Baso # (Auto) 0.0 (0.0-0.1) K/uL D-Dimer, Quantitative (0.0-0.50) mg/L FEU Sodium (136-145) mmol/L Potassium 3.5 (3.5-5.1) mmol/L Chloride (98-107) mmol/L Carbon Dioxide (21.0-32.0) mmol/L BUN (7.0-18.0) mg/dL Creatinine (0.6-1.0) mg/dL Est Cr Clr Drug Dosing mL/min Estimated GFR (MDRD) ml/min Glucose (74-106) mg/dL Calcium (8.5-10.1) mg/dL Phosphorus (2.6-4.7) mg/dL Magnesium (1.8-2.4) mg/dL Total Bilirubin (0.2-1.0) mg/dL AST (15-37) IU/L ALT (14-63) IU/L Alkaline Phosphatase (46-116) U/L Troponin I (0.000-0.056) ng/mL Total Protein (6.4-8.2) g/dL Albumin (3.4-5.0) g/dL Globulin (2.6-4.0) g/dL Albumin/Globulin Ratio (0.9-1.6) Urine Color Urine Appearance Urine pH (5.0-8.0) Ur Specific [place] (1.001-1.035) Urine Protein (NEGATIVE) mg/dL Urine Glucose (UA) (NEGATIVE) mg/dL Urine Ketones (NEGATIVE) mg/dL Urine Occult Blood (NEGATIVE) Urine Nitrite (NEGATIVE) Urine Bilirubin (NEGATIVE) Urine Urobilinogen (<2.0) EU/dL Ur Leukocyte Esterase (NEGATIVE) Influenza Type A RNA NEGATIVE (NEGATIVE) Influenza Type B RNA NEGATIVE (NEGATIVE) SARS-CoV-2 RNA (MARIO) NEGATIVE (NEGATIVE) 12/28/20 Range/Units 06:45 WBC (4.0-11.0) K/uL RBC (4.30-5.90) M/uL Hgb (12.0-16.0) g/dL Hct (36.0-46.0) % MCV (80.0-98.0) fL MCH (27.0-32.0) pg MCHC (31.0-37.0) g/dL RDW Std Deviation (28.0-62.0) fl RDW Coeff of Nancy (11.0-15.0) % Plt Count (150-400) K/uL MPV (7.40-12.00) fL Neut % (Auto) (48.0-80.0) % Lymph % (Auto) (16.0-40.0) % [place] % (Auto) (0.0-15.0) % Eos % (Auto) (0.0-7.0) % Baso % (Auto) (0.0-1.5) % Neut # (Auto) (1.4-5.7) K/uL Lymph # (Auto) (0.6-2.4) K/uL [place] # (Auto) (0.0-0.8) K/uL Eos # (Auto) (0.0-0.7) K/uL Baso # (Auto) (0.0-0.1) K/uL D-Dimer, Quantitative (0.0-0.50) mg/L FEU Sodium 142 (136-145) mmol/L Potassium 3.1 L (3.5-5.1) mmol/L Chloride 108 H (98-107) mmol/L Carbon Dioxide 29.9 (21.0-32.0) mmol/L BUN 13 (7.0-18.0) mg/dL Creatinine 0.7 (0.6-1.0) mg/dL Est Cr Clr Drug Dosing 56.76 mL/min Estimated GFR (MDRD) > 60.0 ml/min Glucose 86 (74-106) mg/dL Calcium 8.2 L (8.5-10.1) mg/dL Phosphorus 2.7 (2.6-4.7) mg/dL Magnesium 1.9 (1.8-2.4) mg/dL Total Bilirubin (0.2-1.0) mg/dL AST (15-37) IU/L ALT (14-63) IU/L Alkaline Phosphatase (46-116) U/L Troponin I (0.000-0.056) ng/mL Total Protein (6.4-8.2) g/dL Albumin (3.4-5.0) g/dL Globulin (2.6-4.0) g/dL Albumin/Globulin Ratio (0.9-1.6) Urine Color Urine Appearance Urine pH (5.0-8.0) Ur Specific [place] (1.001-1.035) Urine Protein (NEGATIVE) mg/dL Urine Glucose (UA) (NEGATIVE) mg/dL Urine Ketones (NEGATIVE) mg/dL Urine Occult Blood (NEGATIVE) Urine Nitrite (NEGATIVE) Urine Bilirubin (NEGATIVE) Urine Urobilinogen (<2.0) EU/dL Ur Leukocyte Esterase (NEGATIVE) Influenza Type A RNA (NEGATIVE) Influenza Type B RNA (NEGATIVE) SARS-CoV-2 RNA (MARIO) (NEGATIVE) Result Diagrams: 12/28/20 06:45 12/28/20 06:45 Sepsis Event Note - Evaluation Sepsis Screening Result: No Definite Risk - Focused Exam Vital Signs: Vital Signs Temp Pulse Resp BP Pulse Ox 12/28/20 08:00 97.7 F 93 18 126/49 L 96 12/28/20 03:35 96.8 F L 71 16 101/54 L 97 12/28/20 00:10 96.9 F 73 16 108/47 L 95 - Problem List Review Problem List Initiated/Reviewed/Updated: Yes - Plan Plan:: 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 1. Community-acquired pneumonia: Afebrile, white blood cells within normal limits, patient does not meet sepsis criteria, continue on Rocephin and azithromycin, upon discharge may consider discharging on Levaquin. Patient currently using Robitussin-DM for cough, will also prescribe Tessalon Perles. DuoNebs as needed for shortness of breath 2. Hypokalemia: Vitals stable, sinus rhythm on telemetry, 3.1 this morning, will replete 60 mEq p.o., check CMP with a.m. labs and replete as necessary. 3. Edema in extremities: Patient tolerating p.o. diet vitally stable, will discontinue fluids. <Inocente Durán - Last Filed: 12/30/20 14:41> - Patient Data Vitals - Most Recent: Last Vital Signs Temp 36.0 C L 12/29/20 12:34 Pulse 75 12/29/20 12:34 Resp 16 12/29/20 12:34 BP 126/56 L 12/29/20 12:34 Pulse Ox 98 12/29/20 12:34 Med Orders - Current: Current Medications Discontinued Medications Acetaminophen (Acetaminophen 325 Mg Tab) 650 mg PO Q4H PRN PRN Reason: Pain (Mild 1-3)/fever Last Admin: 12/28/20 09:18 Dose: 650 mg Documented by: Albuterol/Ipratropium (Albuterol/Ipratropium 3.0-0.5 Mg/3 Ml Neb Soln) 3 ml NEB Q4HRRT PRN PRN Reason: Shortness Of Breath/wheezing Last Admin: 12/28/20 11:34 Dose: 3 ml Documented by: Atorvastatin Calcium (Atorvastatin 40 Mg Tab) 40 mg PO DAILY [facility] Last Admin: 12/29/20 08:16 Dose: 40 mg Documented by: Azithromycin (Azithromycin 500 Mg Vial) 250 mg IV Q24H [facility] Azithromycin (Azithromycin 250 Mg Tab) 250 mg PO Q24H [facility] Last Admin: 12/28/20 18:27 Dose: 250 mg Documented by: Benzonatate (Benzonatate 100 Mg Cap) 100 mg PO Q6H PRN PRN Reason: Cough Last Admin: 12/28/20 16:25 Dose: 100 mg Documented by: Calcium Carbonate (Calcium Carbonate/Vitamin D3 1500 Mg-400 Units Tab) 1 tab PO DAILY [facility] Last Admin: 12/29/20 08:16 Dose: 1 tab Documented by: Cholecalciferol (Cholecalciferol (Vitamin D3) 25 Mcg Tab) 125 mcg PO DAILY [facility] Last Admin: 12/29/20 08:17 Dose: 125 mcg Documented by: Duloxetine HCl (Duloxetine 60 Mg Cap) 60 mg PO DAILY [facility] Last Admin: 12/29/20 08:16 Dose: 60 mg Documented by: Enoxaparin Sodium (Enoxaparin 40 Mg/0.4 Ml Syringe) 40 mg SUBCUT BEDTIME [facility] Last Admin: 12/28/20 20:52 Dose: 40 mg Documented by: Folic Acid (Folic Acid 1 Mg Tab) 1 mg PO DAILY [facility] Last Admin: 12/29/20 08:17 Dose: 1 mg Documented by: Guaifenesin/Dextromethorphan (Guaifenesin/Dextromethorphan 100-10 Mg/5 Ml Soln 10 Ml Cup) 10 ml PO Q4H PRN PRN Reason: Cough Last Admin: 12/29/20 08:17 Dose: 10 ml Documented by: Sodium Chloride (Normal Saline) 1,000 mls @ 999 mls/hr IV BOLUS ONE Stop: 12/27/20 12:21 Last Infusion: 12/27/20 13:13 Dose: 150 mls/hr Documented by: Potassium Chloride 40 meq/ (Premix) 100 mls @ 25 mls/hr IV ONETIME ONE Stop: 12/27/20 16:20 Last Admin: 12/27/20 13:14 Dose: Not Given Documented by: Potassium Chloride 40 meq/ (Premix) 100 mls @ 25 mls/hr IV ONETIME ONE Stop: 12/27/20 16:44 Last Infusion: 12/27/20 13:26 Dose: 15 mls/hr Documented by: Ceftriaxone Sodium/Dextrose 1 (gm/ Premix) 50 mls @ 100 mls/hr IV ONETIME ONE Stop: 12/27/20 15:52 Last Admin: 12/27/20 15:31 Dose: 100 mls/hr Documented by: Lactated Ringer's (Ringers, Lactated) 1,000 mls @ 125 mls/hr IV ASDIRECTED [facility] Last Admin: 12/28/20 06:27 Dose: 125 mls/hr Documented by: Azithromycin 500 mg/ Sodium (Chloride) 250 mls @ 250 mls/hr IV ONETIME [facility] Last Admin: 12/27/20 21:12 Dose: 250 mls/hr Documented by: Ceftriaxone Sodium/Dextrose (Rocephin In Dextrose,Iso-Osm 1 Gm/50 Ml) 50 mls @ 100 mls/hr IV DAILY@1600 [facility] Last Admin: 12/28/20 16:19 Dose: 100 mls/hr Documented by: Azithromycin 250 mg/ Sodium (Chloride) 250 mls @ 250 mls/hr IV Q24H [facility] Last Admin: 12/28/20 17:50 Dose: Not Given Documented by: Iopamidol (Iopamidol 755 Mg/Ml 500 Ml Multipack Bottle) 75 ml IVPUSH ONETIME ONE Stop: 12/27/20 14:56 Last Admin: 12/27/20 14:56 Dose: 75 ml Documented by: Levothyroxine Sodium (Levothyroxine 75 Mcg Tab) 75 mcg PO DAILY [facility] Last Admin: 12/29/20 08:17 Dose: 75 mcg Documented by: Magnesium Oxide (Magnesium Oxide 400 Mg Tab) 800 mg PO ONETIME ONE Stop: 12/27/20 16:58 Last Admin: 12/27/20 17:16 Dose: 800 mg Documented by: Mirtazapine (Mirtazapine 15 Mg Tab) 15 mg PO BEDTIME [facility] Last Admin: 12/28/20 20:52 Dose: 15 mg Documented by: Ondansetron HCl (Ondansetron 4 Mg/2 Ml Sdv) 4 mg IVPUSH ONETIME ONE Stop: 12/27/20 12:17 Last Admin: 12/27/20 12:55 Dose: 4 mg Documented by: Pneumococcal Polyvalent Vaccine (Pneumococcal Polyvalent-23 Vaccine 0.5 Ml Sdv) 0.5 ml IM .ONCE ONE Stop: 12/27/20 18:45 Pneumococcal Polyvalent Vaccine (Pneumococcal Polyvalent-23 Vaccine 0.5 Ml Sdv) 0.5 ml IM .ONCE ONE Stop: 12/29/20 12:16 Last Admin: 12/29/20 12:24 Dose: 0.5 ml Documented by: Potassium Chloride (Potassium Chloride 10% 20 Meq/15 Ml Soln 30 Ml Ud Cup) 40 meq PO ONETIME ONE Stop: 12/27/20 16:52 Last Admin: 12/27/20 17:16 Dose: 40 meq Documented by: Potassium Chloride (Potassium Chloride 20 Meq Tab.Er) 60 meq PO ONETIME ONE Stop: 12/28/20 10:46 Last Admin: 12/28/20 11:05 Dose: 60 meq Documented by: Potassium Chloride (Potassium Chloride 20 Meq Tab.Er) 40 meq PO DAILY [facility] Last Admin: 12/28/20 16:11 Dose: 40 meq Documented by: Potassium Chloride (Potassium Chloride 20 Meq Tab.Er) 20 meq PO ONETIME ONE Stop: 12/29/20 09:37 Last Admin: 12/29/20 10:50 Dose: 20 meq Documented by: Sodium Chloride (Sodium Chloride 0.9% 10 Ml Syringe) 10 ml FLUSH ASDIRECTED PRN PRN Reason: Keep Vein Open Last Admin: 12/27/20 11:29 Dose: 10 ml Documented by: Sodium Chloride (Sodium Chloride 0.9% 2.5 Ml Syringe) 2.5 ml FLUSH ASDIRECTED PRN PRN Reason: Keep Vein Open Last Admin: 12/27/20 11:29 Dose: 2.5 ml Documented by: - Patient Data Result Diagrams: 12/29/20 08:21 12/29/20 08:21 - Problem List & Annotations (1) Dizziness SNOMED Code(s): 172053584, 036851621 Code(s): R42 - DIZZINESS AND GIDDINESS Status: Acute (2) Hypothyroid SNOMED Code(s): 73279612 Code(s): E03.9 - HYPOTHYROIDISM, UNSPECIFIED Status: Chronic (3) Skin cancer SNOMED Code(s): 065182367 Code(s): C44.90 - UNSPECIFIED MALIGNANT NEOPLASM OF SKIN, UNSPECIFIED Status: Chronic (4) Breast cancer SNOMED Code(s): 855431020 Code(s): C50.919 - MALIGNANT NEOPLASM OF UNSP SITE OF UNSPECIFIED FEMALE BREAST Status: Chronic (5) Community acquired pneumonia SNOMED Code(s): 898440955 Code(s): J18.9 - PNEUMONIA, UNSPECIFIED ORGANISM Status: Acute Qualifiers: Laterality: right Lung location: upper lobe of lung Qualified Code(s): J18.9 - Pneumonia, unspecified organism (6) Hypokalemia SNOMED Code(s): 88272580 Code(s): E87.6 - HYPOKALEMIA Status: Acute - Plan Plan:: I have seen and evaluated the patient and agree with the residents note unless specified in my note
[2020-12-28] MEDS ORDERED: Benzonatate 100 MG Cap PO PRN (10:42)
[2020-12-28] MEDS ORDERED: Potassium Chloride 20 MEQ Tab.ER PO ONE (10:45)
[2020-12-28] MEDS ORDERED: Potassium Chloride 20 MEQ Tab.ER PO SCH (15:00)
[2020-12-28] MEDS ORDERED: cefTRIAXone 1 GM in Sodium Chloride 0.9% 50 ML IV SCH (15:00)
[2020-12-28] MEDS ORDERED: Azithromycin 500 MG Vial IV SCH (17:00)
[2020-12-28] MEDS ORDERED: Azithromycin 250 MG in Sodium Chloride 0.9% 250 ML IV SCH (17:00)
[2020-12-28] MEDS ORDERED: Azithromycin 250 MG Tab PO SCH (18:00)
[2020-12-28] MEDS: Mirtazapine 15 MG Tab PO SCH (20:52)
[2020-12-28] MEDS: Enoxaparin 40 MG/0.4 ML Syringe SUBCUT SCH (20:52)
[2020-12-29] MEDS: DULoxetine 60 MG Cap PO SCH (08:16)
[2020-12-29] MEDS: Calcium Carbonate/Vitamin D3 1500 MG-400 Units Tab PO SCH (08:16)
[2020-12-29] MEDS: atorvaSTATin 40 MG Tab PO SCH (08:16)
[2020-12-29] MEDS: Levothyroxine 75 MCG Tab PO SCH (08:17)
[2020-12-29] MEDS: Folic Acid 1 MG Tab PO SCH (08:17)
[2020-12-29] MEDS: Cholecalciferol (Vitamin D3) 25 MCG Tab PO SCH (08:17)
[2020-12-29] MEDS: guaiFENesin/Dextromethorphan 100-10 MG/5 ML Soln 10 ML Cup PO PRN (08:17)
[2020-12-29 08:57] LABS: BLOOD UREA NITROGEN,BUN 12 mg/dL (7.0-18.0); CARBON DIOXIDE,CO2 27.1 mmol/L (21.0-32.0); CHLORIDE,CL 109 mmol/L (98-107); GLUCOSE RANDOM 95 mg/dL (74-106); POTASSIUM,K 3.5 mmol/L (3.5-5.1); SODIUM,NA 144 mmol/L (136-145)
[2020-12-29] MEDS ORDERED: Potassium Chloride 20 MEQ Tab.ER PO ONE (09:36)
--- NOTE | 2020-12-29 11:27 | PCM.DCSUM1 ---
Discharge Summary - Hospital Course Brief History: Patient is a 70-year-old female with PMH of breast Ca, in remission, hypothyroidism, Squamous cell cancer, presents emergency room after being directed by her PCP to come to the ER due to low potassium on routine labs. Patient also feels dizzy/near syncope x5 days. Patient states that she did have a skin biopsy that showed stage II squamous cell ca which she is following with her primary care provider in [place] for. Patient states that last week her potassium was low and so her primary care provider repleted this and she left [place] with her potassium at 3.6. Patient states that her primary care wanted to repeat the potassium yesterday and she had this drawn at the clinic and sent to [place]. Patient was called today stating she needed to come to the emergency room because her potassium was 2.6. Patient states that a week ago she was diagnosed with influenza and was treated for it and since then she had associated dizziness/near syncope episodes . Patient states that she has been coughing a lot and has been short of breath with exertion and related this to the influenza infection. Patient states that she is currently taking 60 mg of potassium today and states that she typically takes 80 mg daily. Patient denies fever, chills, chest pain. Denies headache, neck stiff ness, change in vision, syncope. Denies nausea, vomiting, abdominal pain, diarrhea, constipation, or dysuria. Has not noted any blood in urine or stool. Patient has been eating and drinking appropriately. Diagnosis: Stroke: No - Discharge Data Discharge Date: 12/29/20 Discharge Disposition: Home, Home Health Agency 06 Condition: Good - Referral to Home Health Date of Face to Face Encounter: 12/29/20 Reason for Homebound Status: Andressa is homebound needing assitance of walker and caregiver to leave the house for appointments. Primary Care Physician: PCP Not In Area Skilled Need: Andressa is in need of long term care to help monitor symptoms of low potassium and vital signs. OT and PT is needed to evaluate and treat for unsteady gait and home safety evaluation. - Discharge Diagnosis/Problem(s) (1) Hypokalemia SNOMED Code(s): 61782846 ICD Code: E87.6 - HYPOKALEMIA Status: Acute Current Visit: Yes (2) Community acquired pneumonia SNOMED Code(s): 078981190 ICD Code: J18.9 - PNEUMONIA, UNSPECIFIED ORGANISM Status: Acute Current Visit: Yes Qualifiers: Laterality: right Lung location: upper lobe of lung Qualified Code(s): J18.9 - Pneumonia, unspecified organism (3) Dyspnea SNOMED Code(s): 849596480 ICD Code: R06.00 - DYSPNEA, UNSPECIFIED Status: Acute Current Visit: Yes Qualifiers: Dyspnea type: dyspnea on exertion Qualified Code(s): R06.00 - Dyspnea, unspecified (4) Hypothyroid SNOMED Code(s): 21069495 ICD Code: E03.9 - HYPOTHYROIDISM, UNSPECIFIED Status: Chronic Current Vi sit: Yes (5) Breast cancer SNOMED Code(s): 067936484 ICD Code: C50.919 - MALIGNANT NEOPLASM OF UNSP SITE OF UNSPECIFIED FEMALE BREAST Status: Chronic Current Visit: Yes (6) Skin cancer SNOMED Code(s): 175946912 ICD Code: C44.90 - UNSPECIFIED MALIGNANT NEOPLASM OF SKIN, UNSPECIFIED Status: Chronic Current Visit: Yes (7) Peripheral neuropathy SNOMED Code(s): 808496048 ICD Code: G62.9 - POLYNEUROPATHY, UNSPECIFIED Status: Chronic Current Visit: Yes - Patient Summary/Data Consults: Consultations 12/28/20 14:33 PT Evaluation and Treatment [CONS] Routine Hospital Course: Admission diagnosis Hypokalemia CAP Discharge diagnosis Hypokalemia CAP Other PMH Hypothyroidism History of breast cancer History of skin cancer History of peripheral neuropathy History of hypokalemia Andressa was admitted secondary to hypokalemia and found to have community- acquired pneumonia. She was treated with Rocephin and azithromycin. She was also supplemented with aggressive potassium supplementation as well as magnesium. Patient is not needing oxygen therapy. Patient is now eating better than upon arrival. Worsening hypokalemia secondary to acute illness as well as poor oral intake with CAP. Today patient's potassium 3.5 she was given 20 mEq. She will be discharged home to continue taking her 80 mEq daily but recommended to split dose up to take 40 mEq twice daily, she verbalized understanding. She will also be sent home with 5 more days of Levaquin to complete community-acquired pneumonia therapy. She was also sent home with Zain as well as Dominick Carlos to help with cough. Patient was up ambulating with physical therapy today and she is at her baseline. Patient will be discharged home with home health today. She is to follow-up with PCP within [facility] to help manage care as her normal PCP is in [place]. Patient will have [facility] 01/02/2021 to monitor potassium. Result will be faxed to PCP as well as sent to PCP here in [place]. Again she is to continue potassium supplementation at home. She is to return to the ER or clinic if concerns a rise. She verbalized understanding of discharge instructions along with symptoms to monitor for hypokalemia. Encouraged to eat well-balanced meals and as well as stay hydrated. - Patient Instructions Diet: Regular Diet as Tolerated Activity: As Tolerated, No Strenuous Activities Driving: Do Not Drive Showering/Bathing: May Shower Notify Provider of: Fever, Increased Pain, Swelling and Redness, Drainage, Nausea and/or Vomiting Other/Special Instructions: Recheck labwork in 5 days, results will be sent to PCP and Dr Briscoe. - Discharge Plan *PRESCRIPTION DRUG MONITORING PROGRAM REVIEWED*: Not Applicable *COPY OF PRESCRIPTION DRUG MONITORING REPORT IN PATIENT ESSIE: Not Applicable Prescriptions/Med Rec: levoFLOXacin [Levaquin] 750 mg PO DAILY 5 Days #5 tab Dextromethorphan/guaiFENesin [Robitussin DM] 10 ml PO Q4H PRN 5 Days #1 cup PRN Reason: Cough Benzonatate [Tessalon Perle] 100 mg PO Q6H 5 Days #20 capsule Home Medications: Home Meds Albuterol Sulfate [Proair Digihaler] 2 puff INH ASDIRECTED PRN 12/27/20 [History] Calcium Carb, Citrate/Vit D3 [Calcium + D3 ER Tablet] 1 tab PO DAILY 12/27/20 [History] Cholecalciferol (Vitamin D3) [Vitamin D] 1 tab PO DAILY 12/27/20 [History] Citalopram [Citalopram HBr] 40 mg PO DAILY 12/27/20 [History] DULoxetine [Cymbalta] 60 mg PO DAILY 12/27/20 [History] Folic Acid 1 mg PO DAILY 12/27/20 [History] Ibandronate [Boniva] 150 mg PO DAILY 12/27/20 [History] Levothyroxine Sodium [Levoxyl] 75 mcg PO DAILY 12/27/20 [History] Magnesium 250 mg PO DAILY 12/27/20 [History] Omeprazole 20 mg PO DAILY 12/27/20 [History] atorvaSTATin [Lipitor] 40 mg PO DAILY 12/27/20 [History] Albuterol/Ipratropium [DuoNeb 3.0-0.5 MG/3 ML] 3 ml NEB Q4HRRT PRN neb 12/28/20 [Rx] Benzonatate [Tessalon Perle] 100 mg PO Q6H 5 Days #20 capsule 12/28/20 [Rx] Dextromethorphan/guaiFENesin [Robitussin DM] 10 ml PO Q4H PRN 5 Days #1 cup 12/28/20 [Rx] levoFLOXacin [Levaquin] 750 mg PO DAILY 5 Days #5 tab 12/28/20 [Rx] Potassium Chloride 40 meq PO BID #0 12/29/20 [Rx] Oxygen Therapy Mode: Room Air Patient Handouts: Dextromethorphan; Guaifenesin tablets, Hypokalemia, Levofloxacin tablets, Benzonatate capsules Referrals: Ros Singh MD [Physician] - Kadi Briscoe MD [Resident] - 01/12/21 9:30 am - Discharge Summary/Plan Comment DC Time >30 min.: No - Patient Data Vitals - Most Recent: Last Vital Signs Temp 97.6 F 12/29/20 07:05 Pulse 81 12/29/20 07:05 Resp 17 12/29/20 07:05 BP 146/84 H 12/29/20 07:05 Pulse Ox 99 12/29/20 07:05 Weight - Most Recent: 48.081 kg I&O - Last 24 hours: Intake & Output 12/28/20 12/29/20 12/29/20 22:59 06:59 14:59 Intake Total 1170 1200 Output Total 850 800 Balance 320 400 Lab Results - Last 24 hrs: Laboratory Results - last 24 hr 12/29/20 12/29/20 Range/Units 08:21 08:21 WBC 6.10 (4.0-11.0) K/uL RBC 4.44 (4.30-5.90) M/uL Hgb 12.1 (12.0-16.0) g/dL Hct 37.0 (36.0-46.0) % MCV 83.3 (80.0-98.0) fL MCH 27.3 (27.0-32.0) pg MCHC 32.7 (31.0-37.0) g/dL RDW Std Deviation 46.8 (28.0-62.0) fl RDW Coeff of Nancy 16 H (11.0-15.0) % Plt Count 320 (150-400) K/uL MPV 9.60 (7.40-12.00) fL Neut % (Auto) 55.9 (48.0-80.0) % Lymph % (Auto) 31.6 (16.0-40.0) % [place] % (Auto) 8.9 (0.0-15.0) % Eos % (Auto) 3.4 (0.0-7.0) % Baso % (Auto) 0.2 (0.0-1.5) % Neut # (Auto) 3.4 (1.4-5.7) K/uL Lymph # (Auto) 1.9 (0.6-2.4) K/uL [place] # (Auto) 0.5 (0.0-0.8) K/uL Eos # (Auto) 0.2 (0.0-0.7) K/uL Baso # (Auto) 0.0 (0.0-0.1) K/uL Sodium 144 (136-145) mmol/L Potassium 3.5 (3.5-5.1) mmol/L Chloride 109 H (98-107) mmol/L Carbon Dioxide 27.1 (21.0-32.0) mmol/L BUN 12 (7.0-18.0) mg/dL Creatinine 0.8 (0.6-1.0) mg/dL Est Cr Clr Drug Dosing 49.67 mL/min Estimated GFR (MDRD) > 60.0 ml/min Glucose 95 (74-106) mg/dL Calcium 9.1 (8.5-10.1) mg/dL Magnesium 2.2 (1.8-2.4) mg/dL Med Orders - Current: Current Medications Acetaminophen (Acetaminophen 325 Mg Tab) 650 mg PO Q4H PRN PRN Reason: Pain (Mild 1-3)/fever Last Admin: 12/28/20 09:18 Dose: 650 mg Documented by: Albuterol/Ipratropium (Albuterol/Ipratropium 3.0-0.5 Mg/3 Ml Neb Soln) 3 ml NEB Q4HRRT PRN PRN Reason: Shortness Of Breath/wheezing Last Admin: 12/28/20 11:34 Dose: 3 ml Documented by: Atorvastatin Calcium (Atorvastatin 40 Mg Tab) 40 mg PO DAILY [facility] Last Admin: 12/29/20 08:16 Dose: 40 mg Documented by: Azithromycin (Azithromycin 250 Mg Tab) 250 mg PO Q24H [facility] Last Admin: 12/28/20 18:27 Dose: 250 mg Documented by: Benzonatate (Benzonatate 100 Mg Cap) 100 mg PO Q6H PRN PRN Reason: Cough Last Admin: 12/28/20 16:25 Dose: 100 mg Documented by: Calcium Carbonate (Calcium Carbonate/Vitamin D3 1500 Mg-400 Units Tab) 1 tab PO DAILY [facility] Last Admin: 12/29/20 08:16 Dose: 1 tab Documented by: Cholecalciferol (Cholecalciferol (Vitamin D3) 25 Mcg Tab) 125 mcg PO DAILY [facility] Last Admin: 12/29/20 08:17 Dose: 125 mcg Documented by: Duloxetine HCl (Duloxetine 60 Mg Cap) 60 mg PO DAILY [facility] Last Admin: 12/29/20 08:16 Dose: 60 mg Documented by: Enoxaparin Sodium (Enoxaparin 40 Mg/0.4 Ml Syringe) 40 mg SUBCUT BEDTIME [facility] Last Admin: 12/28/20 20:52 Dose: 40 mg Documented by: Folic Acid (Folic Acid 1 Mg Tab) 1 mg PO DAILY [facility] Last Admin: 12/29/20 08:17 Dose: 1 mg Documented by: Guaifenesin/Dextromethorphan (Guaifenesin/Dextromethorphan 100-10 Mg/5 Ml Soln 10 Ml Cup) 10 ml PO Q4H PRN PRN Reason: Cough Last Admin: 12/29/20 08:17 Dose: 10 ml Documented by: Ceftriaxone Sodium/Dextrose (Rocephin In Dextrose,Iso-Osm 1 Gm/50 Ml) 50 mls @ 100 mls/hr IV DAILY@1600 [facility] Last Admin: 12/28/20 16:19 Dose: 100 mls/hr Documented by: Levothyroxine Sodium (Levothyroxine 75 Mcg Tab) 75 mcg PO DAILY [facility] Last Admin: 12/29/20 08:17 Dose: 75 mcg Documented by: Mirtazapine (Mirtazapine 15 Mg Tab) 15 mg PO BEDTIME [facility] Last Admin: 12/28/20 20:52 Dose: 15 mg Documented by: Sodium Chloride (Sodium Chloride 0.9% 10 Ml Syringe) 10 ml FLUSH ASDIRECTED PRN PRN Reason: Keep Vein Open Last Admin: 12/27/20 11:29 Dose: 10 ml Documented by: Sodium Chloride (Sodium Chloride 0.9% 2.5 Ml Syringe) 2.5 ml FLUSH ASDIRECTED PRN PRN Reason: Keep Vein Open Last Admin: 12/27/20 11:29 Dose: 2.5 ml Documented by: Discontinued Medications Azithromycin (Azithromycin 500 Mg Vial) 250 mg IV Q24H [facility] Sodium Chloride (Normal Saline) 1,000 mls @ 999 mls/hr IV BOLUS ONE Stop: 12/27/20 12:21 Last Infusion: 12/27/20 13:13 Dose: 150 mls/hr Documented by: Potassium Chloride 40 meq/ (Premix) 100 mls @ 25 mls/hr IV ONETIME ONE Stop: 12/27/20 16:20 Last Admin: 12/27/20 13:14 Dose: Not Given Documented by: Potassium Chloride 40 meq/ (Premix) 100 mls @ 25 mls/hr IV ONETIME ONE Stop: 12/27/20 16:44 Last Infusion: 12/27/20 13:26 Dose: 15 mls/hr Documented by: Ceftriaxone Sodium/Dextrose 1 (gm/ Premix) 50 mls @ 100 mls/hr IV ONETIME ONE Stop: 12/27/20 15:52 Last Admin: 12/27/20 15:31 Dose: 100 mls/hr Documented by: Lactated Ringer's (Ringers, Lactated) 1,000 mls @ 125 mls/hr IV ASDIRECTED [facility] Last Admin: 12/28/20 06:27 Dose: 125 mls/hr Documented by: Azithromycin 500 mg/ Sodium (Chloride) 250 mls @ 250 mls/hr IV ONETIME [facility] Last Admin: 12/27/20 21:12 Dose: 250 mls/hr Documented by: Azithromycin 250 mg/ Sodium (Chloride) 250 mls @ 250 mls/hr IV Q24H [facility] Last Admin: 12/28/20 17:50 Dose: Not Given Documented by: Iopamidol (Iopamidol 755 Mg/Ml 500 Ml Multipack Bottle) 75 ml IVPUSH ONETIME ONE Stop: 12/27/20 14:56 Last Admin: 12/27/20 14:56 Dose: 75 ml Documented by: Magnesium Oxide (Magnesium Oxide 400 Mg Tab) 800 mg PO ONETIME ONE Stop: 12/27/20 16:58 Last Admin: 12/27/20 17:16 Dose: 800 mg Documented by: Ondansetron HCl (Ondansetron 4 Mg/2 Ml Sdv) 4 mg IVPUSH ONETIME ONE Stop: 12/27/20 12:17 Last Admin: 12/27/20 12:55 Dose: 4 mg Documented by: Pneumococcal Polyvalent Vaccine (Pneumococcal Polyvalent-23 Vaccine 0.5 Ml Sdv) 0.5 ml IM .ONCE ONE Stop: 12/27/20 18:45 Potassium Chloride (Potassium Chloride 10% 20 Meq/15 Ml Soln 30 Ml Ud Cup) 40 meq PO ONETIME ONE Stop: 12/27/20 16:52 Last Admin: 12/27/20 17:16 Dose: 40 meq Documented by: Potassium Chloride (Potassium Chloride 20 Meq Tab.Er) 60 meq PO ONETIME ONE Stop: 12/28/20 10:46 Last Admin: 12/28/20 11:05 Dose: 60 meq Documented by: Potassium Chloride (Potassium Chloride 20 Meq Tab.Er) 40 meq PO DAILY [facility] Last Admin: 12/28/20 16:11 Dose: 40 meq Documented by: Potassium Chloride (Potassium Chloride 20 Meq Tab.Er) 20 meq PO ONETIME ONE Stop: 12/29/20 09:37 Last Admin: 12/29/20 10:50 Dose: 20 meq Documented by:
[2020-12-29] MEDS ORDERED: Pneumococcal Polyvalent-23 Vaccine 0.5 ML SDV IM ONE (12:15)
[2020-12-29 12:35] VITALS: BP 126/56; PULSE 75
== END 2020-12-29 13:05 | disposition home health service (06) ==
LOC: MW.ED 10:31 → MW.MS 15:23
PROVIDERS: ADMIT Student in an Organized Health Care Education/Training Program; ATTEND Student in an Organized Health Care Education/Training Program
DX: E87.6 Hypokalemia (principal); E03.9 Hypothyroidism, unspecified; C44.92 Squamous cell carcinoma of skin, unspecified; C50.919 Malignant neoplasm of unspecified site of unspecified female breast; J18.9 Pneumonia, unspecified organism; G62.9 Polyneuropathy, unspecified; Z79.890 Hormone replacement therapy; Z20.822 Contact with and (suspected) exposure to COVID-19; Z88.8 Allergy status to other drugs, medicaments and biological substances; Z79.899 Other long term (current) drug therapy; Z98.890 Other specified postprocedural states
CPT/HCPCS: 0240U; 36415; 70450; 71045; 71275; 80048; 80053; 81003; 83735; 84100; 84132; 84484; 85025; 85379; 90732; 93005; 94640; 96365; 96366; 96375; 97161; 99285; A9270; G0009; J0456; J0696; J1650; J2405; J3480; J7030; J7050; J7120; Q9967; 96368; 96372; 96376; 99217; 99218; 99284; G0378; J7620-GY

== ENCOUNTER 2021-01-12 16:04 | Observation (INO) | payer MEDICARE, BC ==
[2021-01-12] MEDS ORDERED: Sodium Chloride 0.9% 2.5 ML Syringe FLUSH PRN (17:16)
[2021-01-12] MEDS ORDERED: Potassium Chloride Riders 40 MEQ in Premix Bag 1 BAG IV ONE ×2 (17:16→17:45)
[2021-01-12] MEDS ORDERED: Sodium Chloride 0.9% 10 ML Syringe FLUSH PRN (17:16)
[2021-01-12] MEDS ORDERED: Potassium Chloride 20 MEQ Tab.ER PO ONE (17:18)
[2021-01-12] MEDS ORDERED: Sodium Chloride 0.9% 1,000 ML IV ONE (17:18)
--- NOTE | 2021-01-12 17:38 | PCM.EKG ---
#1 Interpretation EKG Date: 01/12/21 Time: 17:30 Rhythm: NSR Rate (Beats/Min): 108 [place]: Normal P-Wave: Present QRS: Normal ST-T: Normal QT: Normal Comparison: No Change (01/12/21) EKG Interpretation Comments: Sinus Tachycardia
[2021-01-12] MEDS ORDERED: Iopamidol 755 MG/ML 500 ML Multipack Bottle IVPUSH ONE (18:29)
--- NOTE | 2021-01-12 18:45 | CR ---
HISTORY: Pain after fall COMPARISON: None available. FINDINGS: AP, lateral, and oblique views of the left wrist are obtained for a total of three views. There is no sign of fracture or dislocation. The bones of the carpus are in anatomic alignment with the distal radius. 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 The soft tissues are normal in appearance with no sign of foreign body. IMPRESSION: No sign of acute osseous injury. 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 Chaparro Linton @ Jan 12 2021 6:44PM
[2021-01-12 19:07] LABS: CORONAVIRUS COVID-19 NAA NEGATIVE (NEGATIVE); INFLUENZA A NAA NEGATIVE (NEGATIVE); INFLUENZA B NAA NEGATIVE (NEGATIVE)
--- NOTE | 2021-01-12 19:10 | EDM.PDOC ---
ED HPI GENERAL MEDICAL PROBLEM - General Chief Complaint: General Stated Complaint: LOW POTASSIUM HYPER THYROID Time Seen by Provider: 01/12/21 16:05 Source of Information: Reports: Patient History Limitations: Reports: No Limitations - History of Present Illness INITIAL COMMENTS - FREE TEXT/NARRATIVE: HISTORY AND PHYSICAL: History of present illness: Patient is a 70-year-old female presents emergency room today with concern of a low potassium of 2.5 and potentially fast thyroid. Patient has a complex medical history including breast cancer, currently in remission x10 years. Patient states that she was diagnosed with recent skin cancer but states it was localized to the skin. Patient states with the past several days she has been feeling as if her potassium was low so had an appointment with her primary care provider and had lab work done today and was instructed to come to the emergency room because her potassium was 2.5. Patient states that typical with her low potassium is dizziness, and near syncopal episode. Patient states that she did have a near syncope episode today where she fell to her knees but states that she did not completely lose consciousness or hit her head. Patient denies any pain or injury following the fall but states that she has had some left wrist discomfort that she had noticed since coming to the emergency room. She states that today she took 80 mg of potassium by mouth. Patient states that she has also been short of breath which is what happened last time her potassium was low. Patient states that she has been coughing and has been coughing up mucus which makes her sometimes gag but states that she has not fully vomited. Patient denies fever, chills, chest pain. Denies headache, neck stiff ness, change in vision, syncope. Denies nausea, vomiting, abdominal pain, diarrhea, constipation, or dysuria. Has not noted any blood in urine or stool. Patient has been eating and drinking appropriately. Review of systems: As per history of present illness and below otherwise all systems reviewed and negative. Past medical history: As per history of present illness and as reviewed below otherwise noncontributory. Surgical history: As per history of present illness and as reviewed below otherwise noncontributory. Social history: See social history for further information Family history: As per history of present illness and as reviewed below otherwise noncontributory. Physical exam: General: Patient is alert, oriented, and in no acute distress. Patient laying comfortably on exam table. Triage vitals noted that patient is tachycardic, however, upon my exam vitals stable and reviewed by me. And patient is not tachycardic without intervention. HEENT: Atraumatic, normocephalic, pupils equal and reactive bilaterally, negative for conjunctival pallor or scleral icterus, mucous membranes moist, TMs normal bilaterally, throat clear, neck supple, nontender, trachea midline. No drooling or trismus noted. No meningeal signs. No hot potato voice noted. Lungs: Clear to auscultation, breath sounds equal bilaterally, chest nontender. Patient speaking 3-4 words interrupted by spasmatic coughing spells causing breathlessness, no wheezing or stridor, no accessory muscle use or respiratory distress. Heart: S1S2, regular rate and rhythm without overt murmur Abdomen: Soft, nondistended, nontender. Negative for masses or hepatosplenomegaly. Negative for costovertebral tenderness. Pelvis: Stable nontender. Genitourinary: Deferred. Rectal: Deferred. Skin: Intact, warm, dry. No lesions or rashes noted. Extremities: There is some mild edema noted at the base of the right hand thumb/distal radius with pain to palpation of this area. Patient has full range of motion of the complete right upper extremity without deficit. Radial pulses grossly intact of the right upper extremity with capillary refill less than 2 seconds. Otherwise, atraumatic, negative for cords or calf pain. Neurovascular unremarkable. Neuro: Awake, alert, oriented. Cranial nerves II through XII unremarkable. Cerebellum unremarkable. Motor and sensory unremarkable throughout. Exam nonfocal. Notes: Patient is a 7-year-old female who presents emergency room today secondary to low potassium causing dizziness/near syncopal episodes as well as shortness of breath and cough over the past several days. Patient had lab work done today at the clinic and was told her potassium was 2.5 and that she needed to come to the emergency room to receive potassium. Upon arrival to the ED, patient is vitally stable and does have a spasmatic cough causing patient to only be able to speak 3-4 words before being interrupted by a coughing spell causing some breathlessness. However, patient's oxygen on room air is 98% and patient is oth erwise breathing comfortably. Lidocaine was nebulized which did calm down patient's cough and she is no longer speaking 2-3 word sentences and is able to communicate normally. Will obtain and CT scan, troponin, EKG, Covid and influenza added onto lab work from the clinic. Patient did have a CBC, CMP, and TSH drawn earlier today on 01/12/2021 at 11:05 AM. Mild derangements of CBC unremarkable. CMP shows hypokalemia at 2.5 and a mildly elevated BUN at 22. TSH low at .02. See Dr. Walls's dictation for specific EKG interpretation. Sinus rhythm without STEMI. X-ray of right wrist shows no sign of acute osseous injury. 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 And CT shows no pulmonary emboli. No acute pulmonary findings. Sm all pulmonary nodules follow-up per Fleischner Society guidelines. Moderate to large hiatal hernia. Magnesium within normal limits. Troponin influenza negative. On reevaluation of patient, she does have periodic coughing but has much improved since her initial impression to the emergency room. She remains vitally stable throughout stay in ED. Did call and speak to the hospitalist on-call, Dr. Younger, and thoroughly discussed patient's case. Will admit to observation on telemetry. Patient discharged to the hospital floor to Dr. Younger in stable condition. Voices understanding and is agreeable to plan of care. Denies any further questions or concerns at this time. Diagnostics: Ang CT, Trop, EKG, COVID/Flu, Magnesium Therapeutics: NS, K-rider, Nebulized lidocaine Impression: Symptomatic hypokalemia Dizziness Near syncope Cough Hyperthyroid Plan: Admit to observation on telemetry to Dr. Younger Definitive disposition and diagnosis as appropriate pending reevaluation and review of above. - Related Data Allergies Allergy/AdvReac Type Severity Reaction Status Date / Time diphenhydramine HCl Allergy Anaphylactic Verified 12/27/20 17:33 [From Benadryl] Shock scopolamine Allergy Nausea and Verified 12/27/20 17:33 Vomiting Home Meds: Home Meds Albuterol Sulfate [Proair Digihaler] 2 puff INH ASDIRECTED PRN 12/27/20 [History] Calcium Carb, Citrate/Vit D3 [Calcium + D3 ER Tablet] 1 tab PO DAILY 12/27/20 [History] Cholecalciferol (Vitamin D3) [Vitamin D] 1 tab PO DAILY 12/27/20 [History] Citalopram [Citalopram HBr] 40 mg PO DAILY 12/27/20 [History] DULoxetine [Cymbalta] 60 mg PO DAILY 12/27/20 [History] Folic Acid 1 mg PO DAILY 12/27/20 [History] Ibandronate [Boniva] 150 mg PO DAILY 12/27/20 [History] Levothyroxine Sodium [Levoxyl] 75 mcg PO DAILY 12/27/20 [History] Magnesium 250 mg PO DAILY 12/27/20 [History] Omeprazole 20 mg PO DAILY 12/27/20 [History] atorvaSTATin [Lipitor] 40 mg PO DAILY 12/27/20 [History] Albuterol/Ipratropium [DuoNeb 3.0-0.5 MG/3 ML] 3 ml NEB Q4HRRT PRN neb 12/28/20 [Rx] Benzonatate [Tessalon Perle] 100 mg PO Q6H 5 Days #20 capsule 12/28/20 [Rx] Dextromethorphan/guaiFENesin [Robitussin DM] 10 ml PO Q4H PRN 5 Days #1 cup 12/28/20 [Rx] levoFLOXacin [Levaquin] 750 mg PO DAILY 5 Days #5 tab 12/28/20 [Rx] Potassium Chloride 40 meq PO BID #0 12/29/20 [Rx] Past Medical History Other HEENT History: Minimal lower teeth, trouble chewing "SOFT diet", RIGHT Inner Ear issues Cardiovascular History: Reports: High Cholesterol Other Respiratory History: Issues with breathing, noted in hospital when goes to sleep O2 sats drop (maybe needs sleep apnea study) but when awake always good, Restless at night too. / Maykel Spouse [employer] History: Reports: Other Musculoskeletal History: Current fracture Right Heel Neurological History: Reports: Neuropathy, Peripheral Psychiatric History: Reports: Anxiety Other Psychiatric History: Huge anxiety worse now with Pain Endocrine/Metabolic History: Reports: Hyperthyroidism, Hypokalemia, Hypomagnesemia, Hypothyroidism, Osteoporosis Oncologic (Cancer) History: Reports: Breast - Infectious Disease History Infectious Disease History: Reports: Influenza - Past Surgical History Other GI Surgeries/Procedures: hx: Bowel obstruction with surgery Female Surgical History: Reports: Breast Biopsy Other Female Surgeries/Procedures: Numerous laparoscopies, eventually Hysterectomy. Cystitis Other Musculoskeletal Surgeries/Procedures:: Bilateral Total Knee ARthroplasties Social & Family History - Family History Family Medical History: No Pertinent Family History - Tobacco Use Tobacco Use Status *Q: Never Tobacco User - Caffeine Use Caffeine Use: Reports: Soda - Recreational Drug Use Recreational Drug Use: No ED ROS GENERAL - Review of Systems Review Of Systems: Comprehensive ROS is negative, except as noted in HPI. ED EXAM, GENERAL - Physical Exam Exam: See Below (see dictation) Course - Vital Signs Last Recorded V/S: Last Vital Signs Temp 98.2 F 01/12/21 18:29 Pulse 96 01/12/21 18:29 Resp 18 01/12/21 18:29 BP 118/59 L 01/12/21 18:29 Pulse Ox 98 01/12/21 18:29 - Orders/Labs/Meds Orders: Active Orders 24 hr Category Date Time Status EKG Documentation Completion [RC] STAT Care 01/12/21 17:14 Active B PERTUSSIS IGG/M/A AB [REF] Stat Lab 01/12/21 19:31 Received DINORAH QURESHI NUCLEIC ACID AMP [MREF] Stat Lab 01/12/21 18:28 Ordered Potassium Chloride Riders [KCL in Water 20 MEQ/50 ML] Med 01/12/21 17:45 Active 40 meq Premix Bag 1 bag IV ONETIME Sodium Chloride 0.9% [Saline Flush] Med 01/12/21 17:16 Active 10 ml FLUSH ASDIRECTED PRN Sodium Chloride 0.9% [Saline Flush] Med 01/12/21 17:16 Active 2.5 ml FLUSH ASDIRECTED PRN Saline Lock Insert [OM.PC] Stat Oth 01/12/21 17:16 Ordered Medication Orders Potassium Chloride 40 meq/ (Premix) 100 mls @ 25 mls/hr IV ONETIME ONE Stop: 01/12/21 21:44 Last Admin: 01/12/21 17:39 Dose: 25 mls/hr Documented by: HAMICAS Sodium Chloride (Sodium Chloride 0.9% 10 Ml Syringe) 10 ml FLUSH ASDIRECTED PRN PRN Reason: Keep Vein Open Last Admin: 01/12/21 17:29 Dose: 10 ml Documented by: HAMICAS Sodium Chloride (Sodium Chloride 0.9% 2.5 Ml Syringe) 2.5 ml FLUSH ASDIRECTED PRN PRN Reason: Keep Vein Open Last Admin: 01/12/21 17:29 Dose: 2.5 ml Documented by: ANNY Labs: Laboratory Tests 01/12/21 01/12/21 01/12/21 Range/Units 17:35 18:22 19:31 Magnesium (1.8-2.4) mg/dL Troponin I < 0.050 (0.000-0.056) ng/mL Urine Color YELLOW Urine Appearance CLEAR Urine pH 6.0 (5.0-8.0) Ur Specific [place] 1.020 (1.001-1.035) Urine Protein NEGATIVE (NEGATIVE) mg/dL Urine Glucose (UA) NEGATIVE (NEGATIVE) mg/dL Urine Ketones NEGATIVE (NEGATIVE) mg/dL Urine Occult Blood NEGATIVE (NEGATIVE) Urine Nitrite NEGATIVE (NEGATIVE) Urine Bilirubin NEGATIVE (NEGATIVE) Urine Urobilinogen 0.2 (<2.0) EU/dL Ur Leukocyte Esterase NEGATIVE (NEGATIVE) Influenza Type A RNA NEGATIVE (NEGATIVE) Influenza Type B RNA NEGATIVE (NEGATIVE) SARS-CoV-2 RNA (MARIO) NEGATIVE (NEGATIVE) 01/12/21 Range/Units 19:31 Magnesium 1.8 (1.8-2.4) mg/dL Troponin I (0.000-0.056) ng/mL Urine Color Urine Appearance Urine pH (5.0-8.0) Ur Specific [place] (1.001-1.035) Urine Protein (NEGATIVE) mg/dL Urine Glucose (UA) (NEGATIVE) mg/dL Urine Ketones (NEGATIVE) mg/dL Urine Occult Blood (NEGATIVE) Urine Nitrite (NEGATIVE) Urine Bilirubin (NEGATIVE) Urine Urobilinogen (<2.0) EU/dL Ur Leukocyte Esterase (NEGATIVE) Influenza Type A RNA (NEGATIVE) Influenza Type B RNA (NEGATIVE) SARS-CoV-2 RNA (MARIO) (NEGATIVE) Meds: Medications Generic Name Dose Route Start Last Admin Trade Name Freq PRN Reason Stop Dose Admin Potassium Chloride 40 meq/ 100 mls @ 25 mls/hr 01/12/21 17:45 01/12/21 17:39 Premix IV 01/12/21 21:44 25 mls/hr ONETIME ONE Administration Sodium Chloride 10 ml 01/12/21 17:16 01/12/21 17:29 Sodium Chloride 0.9% 10 Ml Syringe FLUSH 10 ml ASDIRECTED PRN Administration Keep Vein Open Sodium Chloride 2.5 ml 01/12/21 17:16 01/12/21 17:29 Sodium Chloride 0.9% 2.5 Ml Syringe FLUSH 2.5 ml ASDIRECTED PRN Administration Keep Vein Open Discontinued Medications Generic Name Dose Route Start Last Admin Trade Name Freq PRN Reason Stop Dose Admin Potassium Chloride 40 meq/ 100 mls @ 25 mls/hr 01/12/21 17:16 01/12/21 18:08 Premix IV 01/12/21 21:15 Not Given ONETIME ONE Sodium Chloride 1,000 mls @ 500 mls/hr 01/12/21 17:18 01/12/21 17:29 Normal Saline IV 01/12/21 19:17 500 mls/hr STAT ONE Administration Iopamidol 67 ml 01/12/21 18:29 01/12/21 18:29 Iopamidol 755 Mg/Ml 500 Ml Multipack Bottle IVPUSH 01/12/21 18:30 67 ml ONETIME ONE Administration Lidocaine HCl 5 ml 01/12/21 17:21 01/12/21 17:29 Lidocaine 1% 5 Ml Sdv INJECT 01/12/21 17:22 5 ml ONETIME ONE Administration Potassium Chloride 40 meq 01/12/21 17:18 01/12/21 17:27 Potassium Chloride 20 Meq Tab.Er PO 01/12/21 17:19 40 meq ONETIME ONE Administration Departure - Departure Time of Disposition: 21:33 Disposition: Refer to Observation Clinical Impression: Hypokalemia, Cough, Dizziness, Near syncope, Hyperthyroidism - Discharge Information Sepsis Event Note (ED) - Evaluation Sepsis Screening Result: No Definite Risk - Focused Exam Vital Signs: Vital Signs Temp Pulse Resp BP Pulse Ox 01/12/21 18:29 98.2 F 96 18 118/59 L 98 01/12/21 17:45 98.1 F 95 18 127/77 99 01/12/21 16:34 97.1 F 121 H 143/76 H 94 L - My Orders Last 24 Hours: My Active Orders 01/12/21 17:14 EKG Documentation Completion [RC] STAT 01/12/21 17:16 Sodium Chloride 0.9% [Saline Flush] 10 ml FLUSH ASDIRECTED PRN Sodium Chloride 0.9% [Saline Flush] 2.5 ml FLUSH ASDIRECTED PRN Saline Lock Insert [OM.PC] Stat 01/12/21 17:45 Potassium Chloride Riders [KCL in Water 20 MEQ/50 ML] 40 meq Premix Bag 1 bag IV ONETIME 01/12/21 18:28 BORD PERTUSS NUCLEIC ACID AMP [MREF] Stat 01/12/21 19:31 B PERTUSSIS IGG/M/A AB [REF] Stat - Assessment/Plan Last 24 Hours: My Active Orders 01/12/21 17:14 EKG Documentation Completion [RC] STAT 01/12/21 17:16 Sodium Chloride 0.9% [Saline Flush] 10 ml FLUSH ASDIRECTED PRN Sodium Chloride 0.9% [Saline Flush] 2.5 ml FLUSH ASDIRECTED PRN Saline Lock Insert [OM.PC] Stat 01/12/21 17:45 Potassium Chloride Riders [KCL in Water 20 MEQ/50 ML] 40 meq Premix Bag 1 bag IV ONETIME 01/12/21 18:28 BORD PERTUSS NUCLEIC ACID AMP [MREF] Stat 01/12/21 19:31 B PERTUSSIS IGG/M/A AB [REF] Stat
--- NOTE | 2021-01-12 19:23 | CT ---
Indication: Dyspnea hypoxia tachycardia history of cancer Technique: Contrast enhanced CT chest 67 mL Isovue 370 Comparison: CT chest 12/27/2020 Findings: Thyroidectomy. No pulmonary emboli. Normal caliber thoracic aorta. Heart size normal. No mediastinal hilar adenopathy no pericardial effusion. No central endobronchial lesion. Presumed post treatment changes right breast. Probable post radiation treatment changes the right upper lobe. Freezer atelectasis. No effusion. Several pulmonary in the right upper and right middle lobe are unchanged measuring 4 millimeter series 403 image 64. 5 millimeters left lower lobe pulmonary nodule series 403, image 77 unchanged as well. Previous opacities in the peripheral right upper lung appear essentially resolved. Moderate to large hiatal hernia. Tiny low-density lesion in the several liver too small to characterize. No suspicious bony lesions. Impression: 1. No pulmonary emboli. No acute pulmonary findings. 2. Small pulmonary nodules follow-up per Fleischner society guidelines. 3. Moderate to large hiatal hernia. Please note that all CT scans at this facility use dose modulation, iterative reconstruction, and/or weight-based dosing when appropriate to reduce radiation dose to as low as reasonably achievable. Dictated by Cynthia Adam MD @ 01/12/2021 7:22:[address] Cynthia Adam @ Jan 12 2021 7:22PM
[2021-01-12] MEDS: Mirtazapine 15 MG Tab PO SCH (23:00)
[2021-01-12] MEDS ORDERED: Magnesium Sulfate/Water 2 GM/50 ML Premix Bag IV ONE (23:31)
--- NOTE | 2021-01-12 23:37 | PCM.HP.2 ---
H&P History of Present Illness - General Date of Service: 01/12/21 Admit Problem/Dx: Admission Diagnosis/Problem Admission Diagnosis/Problem Hypokalemia - History of Present Illness Initial Comments - Free Text/Narative: 70 yo female with pmh of hypothyrodism, breast cancer s/p chemo/radiation therapy, neuropathy who presents with several days of not feeling well. Patient reports pain in her veins and joints as well as dizziness. She thought her potassium or thyroid could be low. She also reports a cough and wheezing for the past seven months, the cough is nonproductive. She denies any fevers. She has a history of hypokalemia and takes 80meq a day. She was hospitalized last month for hypokalemia and was also treated for a pneumonia. She reports in december 21 they switched her to name brand synthroid as her TSH was 9. She presented to clinic and was found to have a potassium of 2.5, She was sent to the ED. IN the ED She was given Potassium 40neq Po and 40meq IV. She was also given a nebulizer treatment which she states really helped her cough. - Related Data Allergies/Adverse Reactions: Allergies Allergy/AdvReac Type Severity Reaction Status Date / Time diphenhydramine HCl Allergy Anaphylactic Verified 01/12/21 21:57 [From Benadryl] Shock scopolamine Allergy Nausea and Verified 01/12/21 21:57 Vomiting Home Medications: Home Meds Albuterol Sulfate [Proair Digihaler] 2 puff INH ASDIRECTED PRN 12/27/20 [History] Calcium Carb, Citrate/Vit D3 [Calcium + D3 ER Tablet] 1 tab PO DAILY 12/27/20 [H istory] Cholecalciferol (Vitamin D3) [Vitamin D] 1 tab PO DAILY 12/27/20 [History] Citalopram [Citalopram HBr] 40 mg PO DAILY 12/27/20 [History] DULoxetine [Cymbalta] 120 mg PO DAILY 12/27/20 [History] Folic Acid 5 mg PO DAILY 12/27/20 [History] Ibandronate [Boniva] 150 mg PO DAILY 12/27/20 [History] Magnesium 250 mg PO DAILY 12/27/20 [History] Omeprazole 20 mg PO DAILY 12/27/20 [History] atorvaSTATin [Lipitor] 40 mg PO BEDTIME 12/27/20 [History] Dextromethorphan/guaiFENesin [Robitussin DM] 10 ml PO Q4H PRN 5 Days #1 cup 12/28/20 [Rx] Cinnamon Bark [Cinnamon] 500 mg PO DAILY 01/12/21 [History] Fluticasone Propionate [Flonase] 2 sprays IA DAILY 01/12/21 [History] Levothyroxine Sodium [Synthroid] 75 mcg PO ACBREAKFAST 01/12/21 [History] Mirtazapine 15 mg PO BEDTIME 01/12/21 [History] Potassium Chloride 80 meq PO DAILY 01/12/21 [History] Past Medical History Other HEENT History: Minimal lower teeth, trouble chewing "SOFT diet", RIGHT Inner Ear issues Cardiovascular History: Reports: High Cholesterol Other Respiratory History: Issues with breathing, noted in hospital when goes to sleep O2 sats drop (maybe needs sleep apnea study) but when awake always good, Restless at night too. / Maykel Spouse W[employer] History: Reports: Other Musculoskeletal History: Fracture to Right Heel Neurological History: Reports: Neuropathy, Peripheral Psychiatric History: Reports: Anxiety Other Psychiatric History: Huge anxiety worse now with Pain Endocrine/Metabolic History: Reports: Hyperthyroidism, Hypokalemia, Hypomagnesemia, Hypothyroidism, Osteoporosis Oncologic (Cancer) History: Reports: Breast - Infectious Disease History Infectious Disease History: Reports: Influenza - Past Surgical History Other GI Surgeries/Procedures: hx: Bowel obstruction with surgery Female Surgical History: Reports: Breast Biopsy Other Female Surgeries/Procedures: Numerous laparoscopies, eventually Hysterectomy. Cystitis Other Musculoskeletal Surgeries/Procedures:: Bilateral Total Knee Arthroplasties Social & Family History - Family History Family Medical History: No Pertinent Family History - Tobacco Use Tobacco Use Status *Q: Never Tobacco User Second Hand Smoke Exposure: No - Caffeine Use Caffeine Use: Reports: Soda - Recreational Drug Use Recreational Drug Use: No H&P Review of Systems - Review of Systems: Review Of Systems: Comprehensive ROS is negative, except as noted in HPI. Exam - Exam Exam: See Below - Vital Signs Vital Signs: Last Vital Signs Temp 36.5 C 01/12/21 22:00 Pulse 107 H 01/12/21 22:00 Resp 18 01/12/21 22:00 BP 134/40 L 01/12/21 22:00 Pulse Ox 96 01/12/21 22:00 Weight: 66.088 kg - Exam General: Alert, Oriented HEENT: Conjunctiva Clear Lungs: Clear to Auscultation, Normal Respiratory Effort Cardiovascular: Regular Rate, Regular Rhythm GI/Abdominal Exam: Normal Bowel Sounds, Soft, Non-Tender Extremities: Non-Tender, No Pedal Edema Skin: Warm, Dry, Intact - Patient Data Lab Results Last 24 hrs: Laboratory Results - last 24 hr 01/12/21 01/12/21 01/12/21 Range/Units 17:35 18:22 19:31 Magnesium (1.8-2.4) mg/dL Troponin I < 0.050 (0.000-0.056) ng/mL Urine Color YELLOW Urine Appearance CLEAR Urine pH 6.0 (5.0-8.0) Ur Specific [place] 1.020 (1.001-1.035) Urine Protein NEGATIVE (NEGATIVE) mg/dL Urine Glucose (UA) NEGATIVE (NEGATIVE) mg/dL Urine Ketones NEGATIVE (NEGATIVE) mg/dL Urine Occult Blood NEGATIVE (NEGATIVE) Urine Nitrite NEGATIVE (NEGATIVE) Urine Bilirubin NEGATIVE (NEGATIVE) Urine Urobilinogen 0.2 (<2.0) EU/dL Ur Leukocyte Esterase NEGATIVE (NEGATIVE) Influenza Type A RNA NEGATIVE (NEGATIVE) Influenza Type B RNA NEGATIVE (NEGATIVE) SARS-CoV-2 RNA (MARIO) NEGATIVE (NEGATIVE) 01/12/21 Range/Units 19:31 Magnesium 1.8 (1.8-2.4) mg/dL Troponin I (0.000-0.056) ng/mL Urine Color Urine Appearance Urine pH (5.0-8.0) Ur Specific [place] (1.001-1.035) Urine Protein (NEGATIVE) mg/dL Urine Glucose (UA) (NEGATIVE) mg/dL Urine Ketones (NEGATIVE) mg/dL Urine Occult Blood (NEGATIVE) Urine Nitrite (NEGATIVE) Urine Bilirubin (NEGATIVE) Urine Urobilinogen (<2.0) EU/dL Ur Leukocyte Esterase (NEGATIVE) Influenza Type A RNA (NEGATIVE) Influenza Type B RNA (NEGATIVE) SARS-CoV-2 RNA (MARIO) (NEGATIVE) Result Diagrams: 01/13/21 06:30 01/13/21 05:27 Sepsis Event Note - Evaluation Sepsis Screening Result: No Definite Risk - Focused Exam Vital Signs: Vital Signs Temp Pulse Resp BP Pulse Ox 01/12/21 22:00 36.5 C 107 H 18 134/40 L 96 01/12/21 18:29 36.8 C 96 18 118/59 L 98 01/12/21 17:45 36.7 C 95 18 127/77 99 01/12/21 16:34 36.2 C 121 H 143/76 H 94 L Problem List Initiated/Reviewed/Updated: Yes Orders Last 24hrs: Active Orders 24 hr Category Date Time Status Admission Status [Patient Status] [ADT] Stat ADT 01/12/21 20:03 Active Antiembolic Devices [RC] PER UNIT ROUTINE Care 01/12/21 23:29 Ordered EKG Documentation Completion [RC] STAT Care 01/12/21 17:14 Active Oxygen Therapy [RC] PRN Care 01/12/21 23:28 Ordered Telemetry Monitoring [Cardiac Monitoring] [RC] Q8H Care 01/12/21 21:42 Active Up ad Hanane [RC] ASDIRECTED Care 01/12/21 23:28 Ordered VTE/DVT Education [RC] PER UNIT ROUTINE Care 01/12/21 23:28 Ordered Vital Signs [RC] Q4H Care 01/12/21 23:28 Ordered Regular Diet [DIET] Diet 01/13/21 Breakfast Active B PERTUSSIS IGG/M/A AB [REF] Stat Lab 01/12/21 19:31 Received BASIC METABOLIC PANEL,BMP [CHEM] AM Lab 01/13/21 05:11 Ordered DINORAH QURESHI NUCLEIC ACID AMP [MREF] Stat Lab 01/12/21 18:28 Ordered CBC WITH AUTO DIFF [HEME] AM Lab 01/13/21 05:11 Ordered MAGNESIUM [CHEM] AM Lab 01/13/21 05:11 Ordered T3 FREE [CHEM] AM Lab 01/13/21 05:11 Ordered T4 FREE [CHEM] AM Lab 01/13/21 05:11 Ordered Citalopram [Celexa] Med 01/13/21 09:00 Ordered 40 mg PO DAILY DULoxetine [Cymbalta] Med 01/13/21 09:00 Ordered 120 mg PO DAILY Magnesium Sulfate/Water [Magnesium Sulfate in Water 2 Med 01/12/21 23:31 Once GM/50 ML] 2 gm IV ONETIME ONE Mirtazapine [Remeron] Med 01/12/21 21:00 Ordered 15 mg PO BEDTIME Omeprazole Med 01/13/21 09:00 Ordered 20 mg PO DAILY Sodium Chloride 0.9% [Saline Flush] Med 01/12/21 17:16 Active 10 ml FLUSH ASDIRECTED PRN Sodium Chloride 0.9% [Saline Flush] Med 01/12/21 17:16 Active 2.5 ml FLUSH ASDIRECTED PRN atorvaSTATin [Lipitor] Med 01/13/21 21:00 Ordered 40 mg PO BEDTIME Saline Lock Insert [OM.PC] Stat Oth 01/12/21 17:16 Ordered Sequential Compression Device [OM.PC] Per Unit Routine Oth 01/12/21 23:29 Orde red Resuscitation Status Routine Resus Stat 01/12/21 23:28 Ordered Medication Orders Atorvastatin Calcium (Atorvastatin 40 Mg Tab) 40 mg PO BEDTIME ERIC Citalopram Hydrobromide (Citalopram 20 Mg Tab) 40 mg PO DAILY ERIC Duloxetine HCl (Duloxetine 60 Mg Cap) 120 mg PO DAILY ERIC Mirtazapine (Mirtazapine 15 Mg Tab) 15 mg PO BEDTIME ERIC Omeprazole (Omeprazole 20 Mg Cap.Cr) 20 mg PO DAILY ERIC Sodium Chloride (Sodium Chloride 0.9% 10 Ml Syringe) 10 ml FLUSH ASDIRECTED PRN PRN Reason: Keep Vein Open Last Admin: 01/12/21 17:29 Dose: 10 ml Documented by: ANNY Sodium Chloride (Sodium Chloride 0.9% 2.5 Ml Syringe) 2.5 ml FLUSH ASDIRECTED PRN PRN Reason: Keep Vein Open Last Admin: 01/12/21 17:29 Dose: 2.5 ml Documented by: ANNY Assessment/Plan Comment:: 70 yo female admitted for hypokalemia Hypokalemia: replacing, will recheck potassium with AM labs Hypothyroidism: will check t3,t4 Chronic cough; recommend PFTs CT scan of chest reported multiple small unchanged pulmonary nodules, recommed to patient continued follow up.
[2021-01-12] MEDS ORDERED: Magnesium Sulfate/Water 2 GM/50 ML BAG IV ONE (23:45)
[2021-01-13 06:56] LABS: BLOOD UREA NITROGEN,BUN 19 mg/dL (7.0-18.0); CARBON DIOXIDE,CO2 28.3 mmol/L (21.0-32.0); CHLORIDE,CL 103 mmol/L (98-107); GLUCOSE RANDOM 84 mg/dL (74-106); POTASSIUM,K 3.2 mmol/L (3.5-5.1); SODIUM,NA 143 mmol/L (136-145)
[2021-01-13] MEDS ORDERED: Potassium Chloride 20 MEQ Tab.ER PO ONE ×2 (08:21→16:43)
[2021-01-13] MEDS: Omeprazole 20 MG Cap.CR PO SCH (08:55)
[2021-01-13] MEDS: Citalopram 20 MG Tab PO SCH (08:55)
[2021-01-13] MEDS: DULoxetine 60 MG Cap PO SCH (08:56)
[2021-01-13] MEDS: Acetaminophen 325 MG Tab PO PRN ×2 (09:45→19:45)
--- NOTE | 2021-01-13 14:12 | PCM.PN ---
- General Info Date of Service: 01/13/21 - Review of Systems Systems Review Comment:: feeling better - Patient Data Vitals - Most Recent: Last Vital Signs Temp 36.9 C 01/13/21 08:00 Pulse 99 01/13/21 08:00 Resp 16 01/13/21 08:00 BP 140/62 01/13/21 08:00 Pulse Ox 97 01/13/21 08:00 Weight - Most Recent: 66.088 kg I&O - Last 24 Hours: Intake & Output 01/12/21 01/13/21 01/13/21 22:59 06:59 14:59 Intake Total 400 Output Total 300 Balance 100 Lab Results Last 24 Hours: Laboratory Results - last 24 hr 01/12/21 01/12/21 01/12/21 Range/Units 17:35 18:22 19:31 WBC (4.0-11.0) K/uL RBC (4.30-5.90) M/uL Hgb (12.0-16.0) g/dL Hct (36.0-46.0) % MCV (80.0-98.0) fL MCH (27.0-32.0) pg MCHC (31.0-37.0) g/dL RDW Std Deviation (28.0-62.0) fl RDW Coeff of Nancy (11.0-15.0) % Plt Count (150-400) K/uL MPV (7.40-12.00) fL Neut % (Auto) (48.0-80.0) % Lymph % (Auto) (16.0-40.0) % [place] % (Auto) (0.0-15.0) % Eos % (Auto) (0.0-7.0) % Baso % (Auto) (0.0-1.5) % Neut # (Auto) (1.4-5.7) K/uL Lymph # (Auto) (0.6-2.4) K/uL [place] # (Auto) (0.0-0.8) K/uL Eos # (Auto) (0.0-0.7) K/uL Baso # (Auto) (0.0-0.1) K/uL Nucleated RBC % /100WBC Nucleated RBCs # K/uL Sodium (136-145) mmol/L Potassium (3.5-5.1) mmol/L Chloride (98-107) mmol/L Carbon Dioxide (21.0-32.0) mmol/L BUN (7.0-18.0) mg/dL Creatinine (0.6-1.0) mg/dL Est Cr Clr Drug Dosing mL/min Estimated GFR (MDRD) ml/min Glucose (74-106) mg/dL Calcium (8.5-10.1) mg/dL Magnesium (1.8-2.4) mg/dL Troponin I < 0.050 (0.000-0.056) ng/mL Free T4 (0.76-1.46) ng/dL Free T3 (2.18-3.98) pg/mL Urine Color YELLOW Urine Appearance CLEAR Urine pH 6.0 (5.0-8.0) Ur Specific [place] 1.020 (1.001-1.035) Urine Protein NEGATIVE (NEGATIVE) mg/dL Urine Glucose (UA) NEGATIVE (NEGATIVE) mg/dL Urine Ketones NEGATIVE (NEGATIVE) mg/dL Urine Occult Blood NEGATIVE (NEGATIVE) Urine Nitrite NEGATIVE (NEGATIVE) Urine Bilirubin NEGATIVE (NEGATIVE) Urine Urobilinogen 0.2 (<2.0) EU/dL Ur Leukocyte Esterase NEGATIVE (NEGATIVE) Influenza Type A RNA NEGATIVE (NEGATIVE) Influenza Type B RNA NEGATIVE (NEGATIVE) SARS-CoV-2 RNA (MARIO) NEGATIVE (NEGATIVE) 01/12/21 01/13/21 01/13/21 Range/Units 19:31 05:27 06:30 WBC 5.52 (4.0-11.0) K/uL RBC 4.17 L (4.30-5.90) M/uL Hgb 11.4 L (12.0-16.0) g/dL Hct 33.8 L (36.0-46.0) % MCV 81.1 (80.0-98.0) fL MCH 27.3 (27.0-32.0) pg MCHC 33.7 (31.0-37.0) g/dL RDW Std Deviation 45.3 (28.0-62.0) fl RDW Coeff of Nancy 15 (11.0-15.0) % Plt Count 253 (150-400) K/uL MPV 10.30 (7.40-12.00) fL Neut % (Auto) 57.5 (48.0-80.0) % Lymph % (Auto) 27.5 (16.0-40.0) % [place] % (Auto) 13.2 (0.0-15.0) % Eos % (Auto) 1.6 (0.0-7.0) % Baso % (Auto) 0.2 (0.0-1.5) % Neut # (Auto) 3.2 (1.4-5.7) K/uL Lymph # (Auto) 1.5 (0.6-2.4) K/uL [place] # (Auto) 0.7 (0.0-0.8) K/uL Eos # (Auto) 0.1 (0.0-0.7) K/uL Baso # (Auto) 0.0 (0.0-0.1) K/uL Nucleated RBC % 0.0 /100WBC Nucleated RBCs # 0 K/uL Sodium 143 (136-145) mmol/L Potassium 3.2 L (3.5-5.1) mmol/L Chloride 103 (98-107) mmol/L Carbon Dioxide 28.3 (21.0-32.0) mmol/L BUN 19 H (7.0-18.0) mg/dL Creatinine 0.7 (0.6-1.0) mg/dL Est Cr Clr Drug Dosing 61.86 mL/min Estimated GFR (MDRD) > 60.0 ml/min Glucose 84 (74-106) mg/dL Calcium 8.8 (8.5-10.1) mg/dL Magnesium 1.8 2.5 H (1.8-2.4) mg/dL Troponin I (0.000-0.056) ng/mL Free T4 3.37 H (0.76-1.46) ng/dL Free T3 8.94 H (2.18-3.98) pg/mL Urine Color Urine Appearance Urine pH (5.0-8.0) Ur Specific [place] (1.001-1.035) Urine Protein (NEGATIVE) mg/dL Urine Glucose (UA) (NEGATIVE) mg/dL Urine Ketones (NEGATIVE) mg/dL Urine Occult Blood (NEGATIVE) Urine Nitrite (NEGATIVE) Urine Bilirubin (NEGATIVE) Urine Urobilinogen (<2.0) EU/dL Ur Leukocyte Esterase (NEGATIVE) Influenza Type A RNA (NEGATIVE) Influenza Type B RNA (NEGATIVE) SARS-CoV-2 RNA (MARIO) (NEGATIVE) Med Orders - Current: Current Medications Acetaminophen (Acetaminophen 325 Mg Tab) 650 mg PO Q4H PRN PRN Reason: Pain Last Admin: 01/13/21 09:45 Dose: 650 mg Documented by: Atorvastatin Calcium (Atorvastatin 40 Mg Tab) 40 mg PO BEDTIME [facility] Citalopram Hydrobromide (Citalopram 20 Mg Tab) 40 mg PO DAILY [facility] Last Admin: 01/13/21 08:55 Dose: 40 mg Documented by: Duloxetine HCl (Duloxetine 60 Mg Cap) 120 mg PO DAILY [facility] Last Admin: 01/13/21 08:56 Dose: 120 mg Documented by: Mirtazapine (Mirtazapine 15 Mg Tab) 15 mg PO BEDTIME [facility] Last Admin: 01/12/21 23:00 Dose: 15 mg Documented by: Omeprazole (Omeprazole 20 Mg Cap.Cr) 20 mg PO DAILY [facility] Last Admin: 01/13/21 08:55 Dose: 20 mg Documented by: Sodium Chloride (Sodium Chloride 0.9% 10 Ml Syringe) 10 ml FLUSH ASDIRECTED PRN PRN Reason: Keep Vein Open Last Admin: 01/12/21 17:29 Dose: 10 ml Documented by: Sodium Chloride (Sodium Chloride 0.9% 2.5 Ml Syringe) 2.5 ml FLUSH ASDIRECTED PRN PRN Reason: Keep Vein Open Last Admin: 01/12/21 17:29 Dose: 2.5 ml Documented by: Discontinued Medications Potassium Chloride 40 meq/ (Premix) 100 mls @ 25 mls/hr IV ONETIME ONE Stop: 01/12/21 21:15 Last Admin: 01/12/21 18:08 Dose: Not Given Documented by: Sodium Chloride (Normal Saline) 1,000 mls @ 500 mls/hr IV STAT ONE Stop: 01/12/21 19:17 Last Admin: 01/12/21 17:29 Dose: 500 mls/hr Documented by: Potassium Chloride 40 meq/ (Premix) 100 mls @ 25 mls/hr IV ONETIME ONE Stop: 01/12/21 21:44 Last Admin: 01/12/21 17:39 Dose: 25 mls/hr Documented by: Magnesium Sulfate (Magnesium Sulfate In Water 2 Gm/50 Ml) 2 gm in 50 mls @ 50 mls/hr IV NOW ONE Stop: 01/13/21 00:44 Last Admin: 01/13/21 00:00 Dose: 50 mls/hr Documented by: Iopamidol (Iopamidol 755 Mg/Ml 500 Ml Multipack Bottle) 67 ml IVPUSH ONETIME ONE Stop: 01/12/21 18:30 Last Admin: 01/12/21 18:29 Dose: 67 ml Documented by: Lidocaine HCl (Lidocaine 1% 5 Ml Sdv) 5 ml INJECT ONETIME ONE Stop: 01/12/21 17:22 Last Admin: 01/12/21 17:29 Dose: 5 ml Documented by: Potassium Chloride (Potassium Chloride 20 Meq Tab.Er) 40 meq PO ONETIME ONE Stop: 01/12/21 17:19 Last Admin: 01/12/21 17:27 Dose: 40 meq Documented by: Potassium Chloride (Potassium Chloride 20 Meq Tab.Er) 40 meq PO ONETIME ONE Stop: 01/13/21 08:22 Last Admin: 01/13/21 08:56 Dose: 40 meq Documented by: Potassium Chloride (Potassium Chloride 20 Meq Tab.Er) 40 meq PO ONETIME ONE Stop: 01/13/21 13:33 - Exam General: Alert, Oriented Lungs: Clear to Auscultation, Normal Respiratory Effort Cardiovascular: Regular Rate, Regular Rhythm GI/Abdominal Exam: Soft, Non-Tender, No Distention Extremities: Non-Tender, No Pedal Edema Skin: Warm, Dry, Intact Neurological: No New Focal Deficit - Patient Data Lab Results Last 24 hrs: Laboratory Results - last 24 hr 01/12/21 01/12/21 01/12/21 Range/Units 17:35 18:22 19:31 WBC (4.0-11.0) K/uL RBC (4.30-5.90) M/uL Hgb (12.0-16.0) g/dL Hct (36.0-46.0) % MCV (80.0-98.0) fL MCH (27.0-32.0) pg MCHC (31.0-37.0) g/dL RDW Std Deviation (28.0-62.0) fl RDW Coeff of Nancy (11.0-15.0) % Plt Count (150-400) K/uL MPV (7.40-12.00) fL Neut % (Auto) (48.0-80.0) % Lymph % (Auto) (16.0-40.0) % [place] % (Auto) (0.0-15.0) % Eos % (Auto) (0.0-7.0) % Baso % (Auto) (0.0-1.5) % Neut # (Auto) (1.4-5.7) K/uL Lymph # (Auto) (0.6-2.4) K/uL [place] # (Auto) (0.0-0.8) K/uL Eos # (Auto) (0.0-0.7) K/uL Baso # (Auto) (0.0-0.1) K/uL Nucleated RBC % /100WBC Nucleated RBCs # K/uL Sodium (136-145) mmol/L Potassium (3.5-5.1) mmol/L Chloride (98-107) mmol/L Carbon Dioxide (21.0-32.0) mmol/L BUN (7.0-18.0) mg/dL Creatinine (0.6-1.0) mg/dL Est Cr Clr Drug Dosing mL/min Estimated GFR (MDRD) ml/min Glucose (74-106) mg/dL Calcium (8.5-10.1) mg/dL Magnesium (1.8-2.4) mg/dL Troponin I < 0.050 (0.000-0.056) ng/mL Free T4 (0.76-1.46) ng/dL Free T3 (2.18-3.98) pg/mL Urine Color YELLOW Urine Appearance CLEAR Urine pH 6.0 (5.0-8.0) Ur Specific [place] 1.020 (1.001-1.035) Urine Protein NEGATIVE (NEGATIVE) mg/dL Urine Glucose (UA) NEGATIVE (NEGATIVE) mg/dL Urine Ketones NEGATIVE (NEGATIVE) mg/dL Urine Occult Blood NEGATIVE (NEGATIVE) Urine Nitrite NEGATIVE (NEGATIVE) Urine Bilirubin NEGATIVE (NEGATIVE) Urine Urobilinogen 0.2 (<2.0) EU/dL Ur Leukocyte Esterase NEGATIVE (NEGATIVE) Influenza Type A RNA NEGATIVE (NEGATIVE) Influenza Type B RNA NEGATIVE (NEGATIVE) SARS-CoV-2 RNA (MARIO) NEGATIVE (NEGATIVE) 01/12/21 01/13/2101/13/21 Range/Units 19:31 05:27 06:30 WBC 5.52 (4.0-11.0) K/uL RBC 4.17 L (4.30-5.90) M/uL Hgb 11.4 L (12.0-16.0) g/dL Hct 33.8 L (36.0-46.0) % MCV 81.1 (80.0-98.0) fL MCH 27.3 (27.0-32.0) pg MCHC 33.7 (31.0-37.0) g/dL RDW Std Deviation 45.3 (28.0-62.0) fl RDW Coeff of Nancy 15 (11.0-15.0) % Plt Count 253 (150-400) K/uL MPV 10.30 (7.40-12.00) fL Neut % (Auto) 57.5 (48.0-80.0) % Lymph % (Auto) 27.5 (16.0-40.0) % [place] % (Auto) 13.2 (0.0-15.0) % Eos % (Auto) 1.6 (0.0-7.0) % Baso % (Auto) 0.2 (0.0-1.5) % Neut # (Auto) 3.2 (1.4-5.7) K/uL Lymph # (Auto) 1.5 (0.6-2.4) K/uL [place] # (Auto) 0.7 (0.0-0.8) K/uL Eos # (Auto) 0.1 (0.0-0.7) K/uL Baso # (Auto) 0.0 (0.0-0.1) K/uL Nucleated RBC % 0.0 /100WBC Nucleated RBCs # 0 K/uL Sodium 143 (136-145) mmol/L Potassium 3.2 L (3.5-5.1) mmol/L Chloride 103 (98-107) mmol/L Carbon Dioxide 28.3 (21.0-32.0) mmol/L BUN 19 H (7.0-18.0) mg/dL Creatinine 0.7 (0.6-1.0) mg/dL Est Cr Clr Drug Dosing 61.86 mL/min Estimated GFR (MDRD) > 60.0 ml/min Glucose 84 (74-106) mg/dL Calcium 8.8 (8.5-10.1) mg/dL Magnesium 1.8 2.5 H (1.8-2.4) mg/dL Troponin I (0.000-0.056) ng/mL Free T4 3.37 H (0.76-1.46) ng/dL Free T3 8.94 H (2.18-3.98) pg/mL Urine Color Urine Appearance Urine pH (5.0-8.0) Ur Specific [place] (1.001-1.035) Urine Protein (NEGATIVE) mg/dL Urine Glucose (UA) (NEGATIVE) mg/dL Urine Ketones (NEGATIVE) mg/dL Urine Occult Blood (NEGATIVE) Urine Nitrite (NEGATIVE) Urine Bilirubin (NEGATIVE) Urine Urobilinogen (<2.0) EU/dL Ur Leukocyte Esterase (NEGATIVE) Influenza Type A RNA (NEGATIVE) Influenza Type B RNA (NEGATIVE) SARS-CoV-2 RNA (MARIO) (NEGATIVE) Result Diagrams: 01/13/21 06:30 01/13/21 05:27 Sepsis Event Note - Evaluation Sepsis Screening Result: No Definite Risk - Focused Exam Vital Signs: Vital Signs Temp Pulse Resp BP Pulse Ox 01/13/21 08:00 36.9 C 99 16 140/62 97 01/13/21 04:00 36.7 C 87 16 127/58 L 93 L - Problem List Review Problem List Initiated/Reviewed/Updated: Yes - My Orders Last 24 Hours: My Active Orders 01/12/21 21:00 Mirtazapine [Remeron] 15 mg PO BEDTIME 01/12/21 21:42 Telemetry Monitoring [Cardiac Monitoring] [RC] Q8H 01/12/21 23:28 Oxygen Therapy [RC] PRN Up ad Hanane [RC] ASDIRECTED VTE/DVT Education [RC] PER UNIT ROUTINE Vital Signs [RC] Q4H Resuscitation Status Routine 01/12/21 23:29 Antiembolic Devices [RC] PER UNIT ROUTINE Sequential Compression Device [OM.PC] Per Unit Routine 01/13/21 Breakfast Regular Diet [DIET] 01/13/21 09:00 Citalopram [Celexa] 40 mg PO DAILY DULoxetine [Cymbalta] 120 mg PO DAILY Omeprazole 20 mg PO DAILY 01/13/21 19:00 BASIC METABOLIC PANEL,BMP [CHEM] Routine 01/13/21 21:00 atorvaSTATin [Lipitor] 40 mg PO BEDTIME 01/14/21 05:11 BASIC METABOLIC PANEL,BMP [CHEM] AM CBC WITH AUTO DIFF [HEME] AM MAGNESIUM [CHEM] AM - Plan Plan:: 70 yo female admitted for hypokalemia Hypokalemia: replacing, will recheck potassium with evening labs Hyperthyroidism: I called Dr. Singh and plan on sending home with alternating day doses of 50 and 75mcg. Chronic cough; recommend PFTs CT scan of chest reported multiple small unchanged pulmonary nodules, recommed to patient continued follow up.
[2021-01-13] MEDS: Potassium Chloride 20 MEQ Tab.ER PO ONE ×2 (14:27→16:54)
[2021-01-13 15:24] LABS: BLOOD UREA NITROGEN,BUN 20 mg/dL (7.0-18.0); CARBON DIOXIDE,CO2 30.2 mmol/L (21.0-32.0); CHLORIDE,CL 105 mmol/L (98-107); GLUCOSE RANDOM 122 mg/dL (74-106); SODIUM,NA 143 mmol/L (136-145)
--- NOTE | 2021-01-13 16:05 | CT ---
Indication: Altered mental status Technique: CT of the head without contrast. Coronal and sagittal reformats. Bone and soft tissue windows. Comparison: CT 06/05/2013 Findings: No acute intracranial hemorrhage or extra-axial collection. No evidence of acute cortical infarction. No mass effect or midline shift. Normal cerebral volume. The ventricles are normal in size, shape and contour. There is normal lackey and white matter differentiation. The orbital contents are normal. No calvarial fractures. No lytic or sclerotic osseous lesions within the calvarium or skull base. Scalp and other imaged soft tissue structures are normal. Mastoid air cells are clear. Mild mucosal thickening in the right maxillary sinus. Impression: No acute intracranial abnormality. Please note that all CT scans at this facility use dose modulation, iterative reconstruction, and/or weight-based dosing when appropriate to reduce radiation dose to as low as reasonably achievable. Dictated by Sameer Fox MD @ 01/13/2021 4:04:[address] Sameer Fox @ Jan 13 2021 4:04PM
[2021-01-13] MEDS ORDERED: Propranolol 60 MG Cap.ER PO ONE (18:23)
[2021-01-13] MEDS ORDERED: Sodium Chloride 0.9% with KCl 1,000 ML IV SCH (18:30)
--- NOTE | 2021-01-13 18:40 | PCM.SN.2 ---
- Free Text/Narrative Note: rapid response was called on patient due to unresponsiveness. Nurse was unable to awake patient with sternal rub. After several minutes patient did wake up confused but eventually returned to normal mentation. No focal neurological deficits noted. Patient reported she was tired and feel asleep this afternoon. Patient reported she was able to hear the nurse try any wake her but she was unable to move. It felt like her head was 500 lbs. Repeat labs showed potassium decreased to 3.0. CT of the head was negative. This episode could be due to deep sleep, sleep paralysis, or thyrotoxic periodic paralysis. Will give addtionol potassium 40 PO and 40 IV. Patient is tachycardic so will start propranolol.
[2021-01-13 19:45] LABS: BLOOD UREA NITROGEN,BUN 21 mg/dL (7.0-18.0); CARBON DIOXIDE,CO2 28.6 mmol/L (21.0-32.0); CHLORIDE,CL 107 mmol/L (98-107); GLUCOSE RANDOM 124 mg/dL (74-106); POTASSIUM,K 3.9 mmol/L (3.5-5.1); SODIUM,NA 142 mmol/L (136-145)
[2021-01-13] MEDS: atorvaSTATin 40 MG Tab PO SCH (20:36)
[2021-01-13] MEDS: Mirtazapine 15 MG Tab PO SCH (20:36)
[2021-01-14 05:51] LABS: BLOOD UREA NITROGEN,BUN 17 mg/dL (7.0-18.0); CARBON DIOXIDE,CO2 26.5 mmol/L (21.0-32.0); CHLORIDE,CL 112 mmol/L (98-107); GLUCOSE RANDOM 100 mg/dL (74-106); SODIUM,NA 145 mmol/L (136-145)
[2021-01-14] MEDS: Omeprazole 20 MG Cap.CR PO SCH (08:14)
[2021-01-14] MEDS: DULoxetine 60 MG Cap PO SCH (08:15)
[2021-01-14] MEDS: Citalopram 20 MG Tab PO SCH (08:15)
--- NOTE | 2021-01-14 12:23 | PCM.PN ---
- General Info Date of Service: 01/14/21 - Review of Systems Systems Review Comment:: feeling better, reports increase in her cough today - Patient Data Vitals - Most Recent: Last Vital Signs Temp 36.0 C L 01/14/21 11:05 Pulse 78 01/14/21 11:05 Resp 16 01/14/21 11:05 BP 129/58 L 01/14/21 11:05 Pulse Ox 96 01/14/21 11:05 Weight - Most Recent: 66.088 kg I&O - Last 24 Hours: Intake & Output 01/13/21 01/14/21 01/14/21 22:59 06:59 14:59 Intake Total 945 935 Output Total 750 700 Balance 195 235 Lab Results Last 24 Hours: Laboratory Results - last 24 hr 01/13/21 01/13/21 01/13/21 Range/Units 14:35 14:46 14:46 WBC (4.0-11.0) K/uL RBC (4.30-5.90) M/uL Hgb (12.0-16.0) g/dL Hct (36.0-46.0) % MCV (80.0-98.0) fL MCH (27.0-32.0) pg MCHC (31.0-37.0) g/dL RDW Std Deviation (28.0-62.0) fl RDW Coeff of Nancy (11.0-15.0) % Plt Count (150-400) K/uL MPV (7.40-12.00) fL Neut % (Auto) (48.0-80.0) % Lymph % (Auto) (16.0-40.0) % Woodward % (Auto) (0.0-15.0) % Eos % (Auto) (0.0-7.0) % Baso % (Auto) (0.0-1.5) % Neut # (Auto) (1.4-5.7) K/uL Lymph # (Auto) (0.6-2.4) K/uL Woodward # (Auto) (0.0-0.8) K/uL Eos # (Auto) (0.0-0.7) K/uL Baso # (Auto) (0.0-0.1) K/uL Nucleated RBC % /100WBC Nucleated RBCs # K/uL Sodium 143 (136-145) mmol/L Potassium 3.0 L (3.5-5.1) mmol/L Chloride 105 (98-107) mmol/L Carbon Dioxide 30.2 (21.0-32.0) mmol/L BUN 20 H (7.0-18.0) mg/dL Creatinine 0.7 (0.6-1.0) mg/dL Est Cr Clr Drug Dosing 61.86 mL/min Estimated GFR (MDRD) > 60.0 ml/min Glucose 122 H (74-106) mg/dL POC Glucose 132 H (70-99) mg/dL Calcium 9.2 (8.5-10.1) mg/dL Magnesium 2.4 (1.8-2.4) mg/dL 01/13/21 01/14/21 01/14/21 Range/Units 19:16 00:25 05:16 WBC 4.33 (4.0-11.0) K/uL RBC 4.04 L (4.30-5.90) M/uL Hgb 10.9 L (12.0-16.0) g/dL Hct 33.4 L (36.0-46.0) % MCV 82.7 (80.0-98.0) fL MCH 27.0 (27.0-32.0) pg MCHC 32.6 (31.0-37.0) g/dL RDW Std Deviation 47.4 (28.0-62.0) fl RDW Coeff of Nancy 16 H (11.0-15.0) % Plt Count 230 (150-400) K/uL MPV 10.00 (7.40-12.00) fL Neut % (Auto) 49.9 (48.0-80.0) % Lymph % (Auto) 35.6 (16.0-40.0) % Woodward % (Auto) 12.0 (0.0-15.0) % Eos % (Auto) 2.5 (0.0-7.0) % Baso % (Auto) 0.0 (0.0-1.5) % Neut # (Auto) 2.2 (1.4-5.7) K/uL Lymph # (Auto) 1.5 (0.6-2.4) K/uL Woodward # (Auto) 0.5 (0.0-0.8) K/uL Eos # (Auto) 0.1 (0.0-0.7) K/uL Baso # (Auto) 0.0 (0.0-0.1) K/uL Nucleated RBC % 0.0 /100WBC Nucleated RBCs # 0 K/uL Sodium 142 (136-145) mmol/L Potassium 3.9 3.5 (3.5-5.1) mmol/L Chloride 107 (98-107) mmol/L Carbon Dioxide 28.6 (21.0-32.0) mmol/L BUN 21 H (7.0-18.0) mg/dL Creatinine 0.7 (0.6-1.0) mg/dL Est Cr Clr Drug Dosing 61.86 mL/min Estimated GFR (MDRD) > 60.0 ml/min Glucose 124 H (74-106) mg/dL POC Glucose (70-99) mg/dL Calcium 9.0 (8.5-10.1) mg/dL Magnesium (1.8-2.4) mg/dL 01/14/21 Range/Units 05:16 WBC (4.0-11.0) K/uL RBC (4.30-5.90) M/uL Hgb (12.0-16.0) g/dL Hct (36.0-46.0) % MCV (80.0-98.0) fL MCH (27.0-32.0) pg MCHC (31.0-37.0) g/dL RDW Std Deviation (28.0-62.0) fl RDW Coeff of Nancy (11.0-15.0) % Plt Count (150-400) K/uL MPV (7.40-12.00) fL Neut % (Auto) (48.0-80.0) % Lymph % (Auto) (16.0-40.0) % Woodward % (Auto) (0.0-15.0) % Eos % (Auto) (0.0-7.0) % Baso % (Auto) (0.0-1.5) % Neut # (Auto) (1.4-5.7) K/uL Lymph # (Auto) (0.6-2.4) K/uL Woodward # (Auto) (0.0-0.8) K/uL Eos # (Auto) (0.0-0.7) K/uL Baso # (Auto) (0.0-0.1) K/uL Nucleated RBC % /100WBC Nucleated RBCs # K/uL Sodium 145 (136-145) mmol/L Potassium 4.0 (3.5-5.1) mmol/L Chloride 112 H (98-107) mmol/L Carbon Dioxide 26.5 (21.0-32.0) mmol/L BUN 17 (7.0-18.0) mg/dL Creatinine 0.7 (0.6-1.0) mg/dL Est Cr Clr Drug Dosing 61.86 mL/min Estimated GFR (MDRD) > 60.0 ml/min Glucose 100 (74-106) mg/dL POC Glucose (70-99) mg/dL Calcium 8.7 (8.5-10.1) mg/dL Magnesium 2.1 (1.8-2.4) mg/dL Med Orders - Current: Current Medications Acetaminophen (Acetaminophen 325 Mg Tab) 650 mg PO Q4H PRN PRN Reason: Pain Last Admin: 01/13/21 19:45 Dose: 650 mg Documented by: Atorvastatin Calcium (Atorvastatin 40 Mg Tab) 40 mg PO BEDTIME [facility] Last Admin: 01/13/21 20:36 Dose: 40 mg Documented by: Citalopram Hydrobromide (Citalopram 20 Mg Tab) 40 mg PO DAILY [facility] Last Admin: 01/14/21 08:15 Dose: 40 mg Documented by: Duloxetine HCl (Duloxetine 60 Mg Cap) 120 mg PO DAILY [facility] Last Admin: 01/14/21 08:15 Dose: 120 mg Documented by: Mirtazapine (Mirtazapine 15 Mg Tab) 15 mg PO BEDTIME [facility] Last Admin: 01/13/21 20:36 Dose: 15 mg Documented by: Omeprazole (Omeprazole 20 Mg Cap.Cr) 20 mg PO DAILY [facility] Last Admin: 01/14/21 08:14 Dose: 20 mg Documented by: Potassium Chloride (Potassium Chloride 20 Meq Tab.Er) 40 meq PO BID [facility] Sodium Chloride (Sodium Chloride 0.9% 10 Ml Syringe) 10 ml FLUSH ASDIRECTED PRN PRN Reason: Keep Vein Open Last Admin: 01/12/21 17:29 Dose: 10 ml Documented by: Sodium Chloride (Sodium Chloride 0.9% 2.5 Ml Syringe) 2.5 ml FLUSH ASDIRECTED PRN PRN Reason: Keep Vein Open Last Admin: 01/12/21 17:29 Dose: 2.5 ml Documented by: Discontinued Medications Potassium Chloride 40 meq/ (Premix) 100 mls @ 25 mls/hr IV ONETIME ONE Stop: 01/12/21 21:15 Last Admin: 01/12/21 18:08 Dose: Not Given Documented by: Sodium Chloride (Normal Saline) 1,000 mls @ 500 mls/hr IV STAT ONE Stop: 01/12/21 19:17 Last Admin: 01/12/21 17:29 Dose: 500 mls/hr Documented by: Potassium Chloride 40 meq/ (Premix) 100 mls @ 25 mls/hr IV ONETIME ONE Stop: 01/12/21 21:44 Last Admin: 01/12/21 17:39 Dose: 25 mls/hr Documented by: Magnesium Sulfate (Magnesium Sulfate In Water 2 Gm/50 Ml) 2 gm in 50 mls @ 50 mls/hr IV NOW ONE Stop: 01/13/21 00:44 Last Admin: 01/13/21 00:00 Dose: 50 mls/hr Documented by: Potassium Chloride/Sodium Chloride (Normal Saline With 40 Meq Kcl) 1,000 mls @ 150 mls/hr IV ASDIRECTED ERIC Stop: 01/14/21 01:09 Last Infusion: 01/14/21 01:10 Dose: 150 mls/hr Documented by: Iopamidol (Iopamidol 755 Mg/Ml 500 Ml Multipack Bottle) 67 ml IVPUSH ONETIME ONE Stop: 01/12/21 18:30 Last Admin: 01/12/21 18:29 Dose: 67 ml Documented by: Lidocaine HCl (Lidocaine 1% 5 Ml Sdv) 5 ml INJECT ONETIME ONE Stop: 01/12/21 17:22 Last Admin: 01/12/21 17:29 Dose: 5 ml Documented by: Potassium Chloride (Potassium Chloride 20 Meq Tab.Er) 40 meq PO ONETIME ONE Stop: 01/12/21 17:19 Last Admin: 01/12/21 17:27 Dose: 40 meq Documented by: Potassium Chloride (Potassium Chloride 20 Meq Tab.Er) 40 meq PO ONETIME ONE Stop: 01/13/21 08:22 Last Admin: 01/13/21 08:56 Dose: 40 meq Documented by: Potassium Chloride (Potassium Chloride 20 Meq Tab.Er) 40 meq PO ONETIME ONE Stop: 01/13/21 13:33 Last Admin: 01/13/21 16:54 Dose: 40 meq Documented by: Potassium Chloride (Potassium Chloride 20 Meq Tab.Er) 20 meq PO ONETIME ONE Stop: 01/13/21 16:44 Last Admin: 01/13/21 17:00 Dose: 20 meq Documented by: Propranolol HCl (Propranolol 60 Mg Cap.Er) 60 mg PO ONETIME ONE Stop: 01/13/21 18:24 Last Admin: 01/13/21 19:19 Dose: 60 mg Documented by: - Exam General: Alert, Oriented Neck: Supple Lungs: Clear to Auscultation, Normal Respiratory Effort Cardiovascular: Regular Rate, Regular Rhythm GI/Abdominal Exam: Soft, Non-Tender, No Distention Extremities: Non-Tender, No Pedal Edema Skin: Warm, Dry, Intact - Patient Data Lab Results Last 24 hrs: Laboratory Results - last 24 hr 01/13/21 01/13/21 01/13/21 Range/Units 14:35 14:46 14:46 WBC (4.0-11.0) K/uL RBC (4.30-5.90) M/uL Hgb (12.0-16.0) g/dL Hct (36.0-46.0) % MCV (80.0-98.0) fL MCH (27.0-32.0) pg MCHC (31.0-37.0) g/dL RDW Std Deviation (28.0-62.0) fl RDW Coeff of Nancy (11.0-15.0) % Plt Count (150-400) K/uL MPV (7.40-12.00) fL Neut % (Auto) (48.0-80.0) % Lymph % (Auto) (16.0-40.0) % Woodward % (Auto) (0.0-15.0) % Eos % (Auto) (0.0-7.0) % Baso % (Auto) (0.0-1.5) % Neut # (Auto) (1.4-5.7) K/uL Lymph # (Auto) (0.6-2.4) K/uL Woodward # (Auto) (0.0-0.8) K/uL Eos # (Auto) (0.0-0.7) K/uL Baso # (Auto) (0.0-0.1) K/uL Nucleated RBC % /100WBC Nucleated RBCs # K/uL Sodium 143 (136-145) mmol/L Potassium 3.0 L (3.5-5.1) mmol/L Chloride 105 (98-107) mmol/L Carbon Dioxide 30.2 (21.0-32.0) mmol/L BUN 20 H (7.0-18.0) mg/dL Creatinine 0.7 (0.6-1.0) mg/dL Est Cr Clr Drug Dosing 61.86 mL/min Estimated GFR (MDRD) > 60.0 ml/min Glucose 122 H (74-106) mg/dL POC Glucose 132 H (70-99) mg/dL Calcium 9.2 (8.5-10.1) mg/dL Magnesium 2.4 (1.8-2.4) mg/dL 01/13/21 01/14/21 01/14/21 Range/Units 19:16 00:25 05:16 WBC 4.33 (4.0-11.0) K/uL RBC 4.04 L (4.30-5.90) M/uL Hgb 10.9 L (12.0-16.0) g/dL Hct 33.4 L (36.0-46.0) % MCV 82.7 (80.0-98.0) fL MCH 27.0 (27.0-32.0) pg MCHC 32.6 (31.0-37.0) g/dL RDW Std Deviation 47.4 (28.0-62.0) fl RDW Coeff of Nancy 16 H (11.0-15.0) % Plt Count 230 (150-400) K/uL MPV 10.00 (7.40-12.00) fL Neut % (Auto) 49.9 (48.0-80.0) % Lymph % (Auto) 35.6 (16.0-40.0) % Woodward % (Auto) 12.0 (0.0-15.0) % Eos % (Auto) 2.5 (0.0-7.0) % Baso % (Auto) 0.0 (0.0-1.5) % Neut # (Auto) 2.2 (1.4-5.7) K/uL Lymph # (Auto) 1.5 (0.6-2.4) K/uL Woodward # (Auto) 0.5 (0.0-0.8) K/uL Eos # (Auto) 0.1 (0.0-0.7) K/uL Baso # (Auto) 0.0 (0.0-0.1) K/uL Nucleated RBC % 0.0 /100WBC Nucleated RBCs # 0 K/uL Sodium 142 (136-145) mmol/L Potassium 3.9 3.5 (3.5-5.1) mmol/L Chloride 107 (98-107) mmol/L Carbon Dioxide 28.6 (21.0-32.0) mmol/L BUN 21 H (7.0-18.0) mg/dL Creatinine 0.7 (0.6-1.0) mg/dL Est Cr Clr Drug Dosing 61.86 mL/min Estimated GFR (MDRD) > 60.0 ml/min Glucose 124 H (74-106) mg/dL POC Glucose (70-99) mg/dL Calcium 9.0 (8.5-10.1) mg/dL Magnesium (1.8-2.4) mg/dL 01/14/21 Range/Units 05:16 WBC (4.0-11.0) K/uL RBC (4.30-5.90) M/uL Hgb (12.0-16.0) g/dL Hct (36.0-46.0) % MCV (80.0-98.0) fL MCH (27.0-32.0) pg MCHC (31.0-37.0) g/dL RDW Std Deviation (28.0-62.0) fl RDW Coeff of Nancy (11.0-15.0) % Plt Count (150-400) K/uL MPV (7.40-12.00) fL Neut % (Auto) (48.0-80.0) % Lymph % (Auto) (16.0-40.0) % Woodward % (Auto) (0.0-15.0) % Eos % (Auto) (0.0-7.0) % Baso % (Auto) (0.0-1.5) % Neut # (Auto) (1.4-5.7) K/uL Lymph # (Auto) (0.6-2.4) K/uL Woodward # (Auto) (0.0-0.8) K/uL Eos # (Auto) (0.0-0.7) K/uL Baso # (Auto) (0.0-0.1) K/uL Nucleated RBC % /100WBC Nucleated RBCs # K/uL Sodium 145 (136-145) mmol/L Potassium 4.0 (3.5-5.1) mmol/L Chloride 112 H (98-107) mmol/L Carbon Dioxide 26.5 (21.0-32.0) mmol/L BUN 17 (7.0-18.0) mg/dL Creatinine 0.7 (0.6-1.0) mg/dL Est Cr Clr Drug Dosing 61.86 mL/min Estimated GFR (MDRD) > 60.0 ml/min Glucose 100 (74-106) mg/dL POC Glucose (70-99) mg/dL Calcium 8.7 (8.5-10.1) mg/dL Magnesium 2.1 (1.8-2.4) mg/dL Result Diagrams: 01/14/21 05:16 01/14/21 05:16 Sepsis Event Note - Evaluation Sepsis Screening Result: No Definite Risk - Focused Exam Vital Signs: Vital Signs Temp Pulse Resp BP Pulse Ox 01/14/21 11:05 36.0 C L 78 16 129/58 L 96 01/14/21 07:17 36.0 C L 96 18 130/60 96 01/14/21 04:00 36.5 C 76 16 112/52 L 94 L - Problem List Review Problem List Initiated/Reviewed/Updated: Yes - My Orders Last 24 Hours: My Active Orders 01/13/21 21:00 atorvaSTATin [Lipitor] 40 mg PO BEDTIME 01/14/21 12:30 Potassium Chloride [Klor-Con M20] 40 meq PO BID 01/14/21 18:00 POTASSIUM,K [CHEM] Routine 01/15/21 05:11 BASIC METABOLIC PANEL,BMP [CHEM] AM - Plan Plan:: 70 yo female admitted for hypokalemia Hypokalemia: replacing, will recheck potassium with evening labs Hyperthyroidism: holding synthroid replacement for now. I called Dr. Singh and plan on sending home with alternating day doses of 50 and 75mcg. Chronic cough; recommend PFTs CT scan of chest reported multiple small unchanged pulmonary nodules, recommend to patient continued follow up. dispo: likely home tomorrrow if potassium remains stable.
[2021-01-14] MEDS: Potassium Chloride 20 MEQ Tab.ER PO SCH ×2 (13:23→21:07)
[2021-01-14] MEDS: Mirtazapine 15 MG Tab PO SCH (21:07)
[2021-01-14] MEDS: atorvaSTATin 40 MG Tab PO SCH (21:07)
[2021-01-15 06:00] LABS: BLOOD UREA NITROGEN,BUN 13 mg/dL (7.0-18.0); CARBON DIOXIDE,CO2 25.9 mmol/L (21.0-32.0); CHLORIDE,CL 108 mmol/L (98-107); GLUCOSE RANDOM 87 mg/dL (74-106); POTASSIUM,K 3.8 mmol/L (3.5-5.1); SODIUM,NA 142 mmol/L (136-145)
[2021-01-15] MEDS ORDERED: Ondansetron 4 MG/2 ML SDV IVPUSH PRN (08:58)
[2021-01-15] MEDS: Omeprazole 20 MG Cap.CR PO SCH (09:31)
[2021-01-15] MEDS: Citalopram 20 MG Tab PO SCH (09:31)
[2021-01-15] MEDS: DULoxetine 60 MG Cap PO SCH (09:32)
[2021-01-15] MEDS ORDERED: Potassium Chloride 20 MEQ Tab.ER PO ONE (10:50)
[2021-01-15] MEDS ORDERED: Levothyroxine 50 MCG Tab PO ONE (10:50)
[2021-01-15 10:59] VITALS: BP 133/55; PULSE 78
--- NOTE | 2021-01-15 12:16 | PCM.DCSUM1 ---
Discharge Summary - Discharge Data Discharge Date: 01/15/21 Discharge Disposition: Home, Self-Care 01 Condition: Stable - Referral to Home Health Primary Care Physician: Kadi Briscoe MD - Patient Summary/Data Hospital Course: 70 yo female with pmh of hypothyrodism, s/p thyroidectomy, breast cancer s/p chemo/radiation therapy, neuropathy who was admitted for hypokalemia and hyperthyroidism. Patient presented with several days of fatigue, dizziness, and mental fog. presents with several days of not feeling well. Patient reports pain in her veins and joints as well as dizziness. She thought her potassium or thyroid could be low. She has a history of hypokalemia and takes 80meq a day. She reports in december 21 they increased her to name brand Synthroid from 50 to 75mcg, as her TSH was 9. She presented to clinic and was found to have a potassium of 2.5, and TSH of 0.02, t3 8.9 [address] t[address] of 3[address]3. [address] scan of chest was negative for PE and showed no acute pathology. She did have small pulmonary nodules which she was informed of and will follow up with her PCP regarding the need for additional screening. She was admitted to the hospital and treated with IV and PO potassium. She did have improvement in her symptoms and today is requesting discharge. Potassium has been stable past day on 80mg of PO potassium daily. I called her PCP Dr. Singh who wanted her synthroid decreased to 50mcg-75mcg alternated doses every other day. She is to follow up with Dr. Briscoe Tuesday in clinic. - Patient Instructions Diet: Usual Diet as Tolerated Activity: As Tolerated - Discharge Plan Prescriptions/Med Rec: Levothyroxine [Synthroid] 50 mcg PO Q48H #30 tablet Home Medications: Home Meds Albuterol Sulfate [Proair Digihaler] 2 puff INH ASDIRECTED PRN 12/27/20 [History] Calcium Carb, Citrate/Vit D3 [Calcium + D3 ER Tablet] 1 tab PO DAILY 12/27/20 [History] Cholecalciferol (Vitamin D3) [Vitamin D] 1 tab PO DAILY 12/27/20 [History] Citalopram [Citalopram HBr] 40 mg PO DAILY 12/27/20 [History] DULoxetine [Cymbalta] 120 mg PO DAILY 12/27/20 [History] Folic Acid 5 mg PO DAILY 12/27/20 [History] Ibandronate [Boniva] 150 mg PO DAILY 12/27/20 [History] Magnesium 250 mg PO DAILY 12/27/20 [History] Omeprazole 20 mg PO DAILY 12/27/20 [History] atorvaSTATin [Lipitor] 40 mg PO BEDTIME 12/27/20 [History] Dextromethorphan/guaiFENesin [Robitussin DM] 10 ml PO Q4H PRN 5 Days #1 cup 12/28/20 [Rx] Cinnamon Bark [Cinnamon] 500 mg PO DAILY 01/12/21 [History] Fluticasone Propionate [Flonase] 2 sprays IA DAILY 01/12/21 [History] Mirtazapine 15 mg PO BEDTIME 01/12/21 [History] Potassium Chloride 80 meq PO DAILY 01/12/21 [History] Levothyroxine Sodium [Synthroid] 75 mcg PO Q48H #0 01/15/21 [Rx] Levothyroxine [Synthroid] 50 mcg PO Q48H #30 tablet 01/15/21 [Rx] Patient Handouts: Hyperthyroidism, Levothyroxine tablets, Hypokalemia, Near- Syncope, [id number], Potassium Content of Foods Referrals: Kadi Briscoe MD [Primary Care Provider] - 01/19/21 11:30 am (Dr. Dailey has no availability until the end of January; the appointmnet with Dr. Briscoe will be overseen by Dr. Dailey in his clinic. Hospitalist recommends follow up regarding small lung nodules noted on angiography. ) - Discharge Summary/Plan Comment DC Time >30 min.: No - Patient Data Vitals - Most Recent: Last Vital Signs Temp 36.4 C 01/15/21 11:50 Pulse 78 01/15/21 11:50 Resp 18 01/15/21 11:50 BP 133/55 L 01/15/21 11:50 Pulse Ox 93 L 01/15/21 11:50 Weight - Most Recent: 66.088 kg I&O - Last 24 hours: Intake & Output 01/14/21 01/15/21 01/15/21 22:59 06:59 14:59 Intake Total 1150 400 340 Output Total 500 600 Balance 650 -200 340 Lab Results - Last 24 hrs: Laboratory Results - last 24 hr 01/14/21 01/15/21 Range/Units 18:04 05:25 Sodium 142 (136-145) mmol/L Potassium 4.0 3.8 (3.5-5.1) mmol/L Chloride 108 H (98-107) mmol/L Carbon Dioxide 25.9 (21.0-32.0) mmol/L BUN 13 (7.0-18.0) mg/dL Creatinine 0.6 (0.6-1.0) mg/dL Est Cr Clr Drug Dosing 72.17 mL/min Estimated GFR (MDRD) > 60.0 ml/min Glucose 87 (74-106) mg/dL Calcium 8.8 (8.5-10.1) mg/dL Med Orders - Current: Current Medications Acetaminophen (Acetaminophen 325 Mg Tab) 650 mg PO Q4H PRN PRN Reason: Pain Last Admin: 01/13/21 19:45 Dose: 650 mg Documented by: Atorvastatin Calcium (Atorvastatin 40 Mg Tab) 40 mg PO BEDTIME [facility] Last Admin: 01/14/21 21:07 Dose: 40 mg Documented by: Citalopram Hydrobromide (Citalopram 20 Mg Tab) 40 mg PO DAILY [facility] Last Admin: 01/15/21 09:31 Dose: 40 mg Documented by: Duloxetine HCl (Duloxetine 60 Mg Cap) 120 mg PO DAILY [facility] Last Admin: 01/15/21 09:32 Dose: 120 mg Documented by: Mirtazapine (Mirtazapine 15 Mg Tab) 15 mg PO BEDTIME [facility] Last Admin: 01/14/21 21:07 Dose: 15 mg Documented by: Omeprazole (Omeprazole 20 Mg Cap.Cr) 20 mg PO DAILY [facility] Last Admin: 01/15/21 09:31 Dose: 20 mg Documented by: Ondansetron HCl (Ondansetron 4 Mg/2 Ml Sdv) 4 mg IVPUSH Q4H PRN PRN Reason: Nausea Last Admin: 01/15/21 09:47 Dose: 4 mg Documented by: Sodium Chloride (Sodium Chloride 0.9% 10 Ml Syringe) 10 ml FLUSH ASDIRECTED PRN PRN Reason: Keep Vein Open Last Admin: 01/12/21 17:29 Dose: 10 ml Documented by: Sodium Chloride (Sodium Chloride 0.9% 2.5 Ml Syringe) 2.5 ml FLUSH ASDIRECTED PRN PRN Reason: Keep Vein Open Last Admin: 01/12/21 17:29 Dose: 2.5 ml Documented by: Discontinued Medications Potassium Chloride 40 meq/ (Premix) 100 mls @ 25 mls/hr IV ONETIME ONE Stop: 01/12/21 21:15 Last Admin: 01/12/21 18:08 Dose: Not Given Documented by: Sodium Chloride (Normal Saline) 1,000 mls @ 500 mls/hr IV STAT ONE Stop: 01/12/21 19:17 Last Admin: 01/12/21 17:29 Dose: 500 mls/hr Documented by: Potassium Chloride 40 meq/ (Premix) 100 mls @ 25 mls/hr IV ONETIME ONE Stop: 01/12/21 21:44 Last Admin: 01/12/21 17:39 Dose: 25 mls/hr Documented by: Magnesium Sulfate (Magnesium Sulfate In Water 2 Gm/50 Ml) 2 gm in 50 mls @ 50 mls/hr IV NOW ONE Stop: 01/13/21 00:44 Last Admin: 01/13/21 00:00 Dose: 50 mls/hr Documented by: Potassium Chloride/Sodium Chloride (Normal Saline With 40 Meq Kcl) 1,000 mls @ 150 mls/hr IV ASDIRECTED ERIC Stop: 01/14/21 01:09 Last Infusion: 01/14/21 01:10 Dose: 150 mls/hr Documented by: Iopamidol (Iopamidol 755 Mg/Ml 500 Ml Multipack Bottle) 67 ml IVPUSH ONETIME ONE Stop: 01/12/21 18:30 Last Admin: 01/12/21 18:29 Dose: 67 ml Documented by: Levothyroxine Sodium (Levothyroxine 50 Mcg Tab) 50 mcg PO ACBREAKFAST ONE Stop: 01/16/21 10:51 Levothyroxine Sodium (Levothyroxine 50 Mcg Tab) 50 mcg PO ACBREAKFAST ONE Stop: 01/15/21 10:51 Last Admin: 01/15/21 11:28 Dose: 50 mcg Documented by: Lidocaine HCl (Lidocaine 1% 5 Ml Sdv) 5 ml INJECT ONETIME ONE Stop: 01/12/21 17:22 Last Admin: 01/12/21 17:29 Dose: 5 ml Documented by: Potassium Chloride (Potassium Chloride 20 Meq Tab.Er) 40 meq PO ONETIME ONE Stop: 01/12/21 17:19 Last Admin: 01/12/21 17:27 Dose: 40 meq Documented by: Potassium Chloride (Potassium Chloride 20 Meq Tab.Er) 40 meq PO ONETIME ONE Stop: 01/13/21 08:22 Last Admin: 01/13/21 08:56 Dose: 40 meq Documented by: Potassium Chloride (Potassium Chloride 20 Meq Tab.Er) 40 meq PO ONETIME ONE Stop: 01/13/21 13:33 Last Admin: 01/13/21 16:54 Dose: 40 meq Documented by: Potassium Chloride (Potassium Chloride 20 Meq Tab.Er) 20 meq PO ONETIME ONE Stop: 01/13/21 16:44 Last Admin: 01/13/21 17:00 Dose: 20 meq Documented by: Potassium Chloride (Potassium Chloride 20 Meq Tab.Er) 40 meq PO BID [facility] Last Admin: 01/14/21 21:07 Dose: 40 meq Documented by: Potassium Chloride (Potassium Chloride 20 Meq Tab.Er) 40 meq PO ONETIME ONE Stop: 01/15/21 10:51 Last Admin: 01/15/21 11:29 Dose: 40 meq Documented by: Propranolol HCl (Propranolol 60 Mg Cap.Er) 60 mg PO ONETIME ONE Stop: 01/13/21 18:24 Last Admin: 01/13/21 19:19 Dose: 60 mg Documented by:
[2021-01-16] MEDS ORDERED: Levothyroxine 50 MCG Tab PO ONE (10:50)
== END 2021-01-15 12:45 | disposition home or self-care (01) ==
LOC: MW.ED 16:04 → MW.MS 20:03
PROVIDERS: ADMIT Internal Medicine; ATTEND Internal Medicine
DX: E87.6 Hypokalemia (principal); R42 Dizziness and giddiness; E03.9 Hypothyroidism, unspecified; G62.9 Polyneuropathy, unspecified; C50.919 Malignant neoplasm of unspecified site of unspecified female breast; Z88.8 Allergy status to other drugs, medicaments and biological substances; Z79.899 Other long term (current) drug therapy; Z79.890 Hormone replacement therapy; Z98.890 Other specified postprocedural states; Z20.822 Contact with and (suspected) exposure to COVID-19
CPT/HCPCS: 0240U; 36415; 70450; 71275; 73110; 80048; 81003; 82947; 83735; 84132; 84439; 84481; 84484; 85025; 86615; 87798; 93005; 96365; 96366; 96367; 96375; 96376; 99285; A9270; G0378; J2405; J3475; J3480; J7030; Q9967; 93010; 99284

== ENCOUNTER 2021-01-30 14:48 | Emergency (ER) | payer BC ==
[2021-01-30] MEDS ORDERED: Sodium Chloride 0.9% 2.5 ML Syringe FLUSH PRN (15:14)
[2021-01-30] MEDS ORDERED: Sodium Chloride 0.9% 10 ML Syringe FLUSH PRN (15:14)
[2021-01-30] MEDS ORDERED: Potassium Chloride Riders 40 MEQ in Premix Bag 1 BAG IV ONE (15:23)
--- NOTE | 2021-01-30 15:27 | EDM.PDOC ---
ED HPI GENERAL MEDICAL PROBLEM - General Chief Complaint: General Stated Complaint: LOW POTASSIUM Time Seen by Provider: 01/30/21 14:50 Source of Information: Reports: Patient History Limitations: Reports: No Limitations - History of Present Illness INITIAL COMMENTS - FREE TEXT/NARRATIVE: HISTORY AND PHYSICAL: History of present illness: Patient is a 70-year-old female who presents emergency room today with concern of low potassium of 2.9 that was 2 days ago. Patient states that she started to get dizziness when her potassium was low and began feeling this 2 days ago. Pat michelle states that she also feels shaky which is typical when her potassium is low. Patient states that she had lab work done at [facility] outpatient clinic and was told that her potassium was 2.9 and she needed to come to the emergency room as she was symptomatic. Patient states that she has an appointment with her primary care provider in [place] in February but states that she has not been able to follow-up sooner. Patient states that she also has an appointment with an oil dispatcher in a few months. Patient denies any other symptoms or concerns. Patient states she is currently taking 80 mg of potassium daily and has not missed any doses. Patient denies fever, chills, chest pain, shortness of breath, or cough. Denies headache, neck stiff ness, change in vision, syncope, or near syncope. Denies nausea, vomiting, abdominal pain, diarrhea, constipation, or dysuria. Has not noted any blood in urine or stool. Patient has been eating and drinking appropriately. Review of systems: As per history of present illness and below otherwise all systems reviewed and negative. Past medical history: As per history of present illness and as reviewed below otherwise noncontributory. Surgical history: As per history of present illness and as reviewed below otherwise noncontributory. Social history: See social history for further information Family history: As per history of present illness and as reviewed below otherwise noncontributory. Physical exam: General: Patient is alert, oriented, and in no acute distress. Patient laying comfortably on exam table. Vitals stable and reviewed by me. HEENT: Atraumatic, normocephalic, pupils equal and reactive bilaterally, negative for conjunctival pallor or scleral icterus, mucous membranes moist, TMs normal bilaterally, throat clear, neck supple, nontender, trachea midline. No drooling or trismus noted. No meningeal signs. No hot potato voice noted. Lungs: Clear to auscultation, breath sounds equal bilaterally, chest nontender. Heart: S1S2, regular rate and rhythm without overt murmur Abdomen: Soft, nondistended, nontender. Negative for masses or hepatosplenomegaly. Negative for costovertebral tenderness. Pelvis: Stable nontender. Genitourinary: Deferred. Rectal: Deferred. Skin: Intact, warm, dry. No lesions or rashes noted. Extremities: Atraumatic, negative for cords or calf pain. Neurovascular unremarkable. Neuro: Awake, alert, oriented. Cranial nerves II through XII unremarkable. Cerebellum unremarkable. Motor and sensory unremarkable throughout. Exam nonfocal. Notes: Patient is a 70-year-old female, with a history of frequent hypokalemia, who presents emergency room today with concern of dizziness feeling like her potassium was low. Patient states she had her potassium checked 2 days ago at the clinic and was told to come to the emergency room because it was low at 2.9. Upon arrival to the ED, patient is vitally stable and well-appearing on exam. Will obtain lab work and EKG. See Dr. Kurtz dictation for specific EKG interpretation. However normal sinus rhythm without STEMI. Mild derangements of CBC are unremarkable. CMP shows hypokalemia at 2.8, mild elevation of glucose at 141, AST mildly elevated at 45, otherwise CMP unremarkable. Patient was started on a potassium rider. Patient states that she does not want to be admitted and wants to finish her potassium rider and then discharged home. Discussed with patient that she should have continual monitoring as she is symptomatic from her hypokalemia and have repeat lab work however, patient declines at this time requesting discharge to home following administration of potassium rider. All risks versus benefits discussed with patient and expresses understanding and declines admission. The patient is clinically not intoxicated, free from distracting pain, appears to have intact insight, judgment and reason and in my medical opinion has the capacity to make decisions. The patient is also not under any duress to leave the hospital. In this scenario, it would be battery to subject a patient to treatment against her will. I strongly encouraged the patient to return to this Emergency Department or any Emergency Department at any time, particularly with worsening symptoms. Strict return precautions thoroughly discussed with patient. Discussed importance for follow-up with a primary care provider and the need for close potassium monitoring. Voices understanding and is agreeable to plan of care. Denies any further questions or concerns at this time. Diagnostics: CBC, CMP, EKG Therapeutics: K-rider 40meq Prescription: None Impression: Hypokalemia Left AGAINST MEDICAL ADVICE Plan: 1. Continue to take your potassium at home as discussed. Close follow up with your primary care provider for repeat potassium as discussed. 2. Follow up with your primary care provider as discussed. Return to the ED as needed and as discussed. Definitive disposition and diagnosis as appropriate pending reevaluation and review of above. - Related Data Allergies Allergy/AdvReac Type Severity Reaction Status Date / Time diphenhydramine HCl Allergy Anaphylactic Verified 01/30/21 15:16 [From Benadryl] Shock scopolamine Allergy Nausea and Verified 01/30/21 15:16 Vomiting Home Meds: Home Meds Albuterol Sulfate [Proair Digihaler] 2 puff INH ASDIRECTED PRN 12/27/20 [History] Calcium Carb, Citrate/Vit D3 [Calcium + D3 ER Tablet] 1 tab PO DAILY 12/27/20 [History] Cholecalciferol (Vitamin D3) [Vitamin D] 1 tab PO DAILY 12/27/20 [History] Citalopram [Citalopram HBr] 40 mg PO DAILY 12/27/20 [History] DULoxetine [Cymbalta] 120 mg PO DAILY 12/27/20 [History] Folic Acid 5 mg PO DAILY 12/27/20 [History] Ibandronate [Boniva] 150 mg PO DAILY 12/27/20 [History] Magnesium 250 mg PO DAILY 12/27/20 [History] Omeprazole 20 mg PO DAILY 12/27/20 [History] atorvaSTATin [Lipitor] 40 mg PO BEDTIME 12/27/20 [History] Dextromethorphan/guaiFENesin [Robitussin DM] 10 ml PO Q4H PRN 5 Days #1 cup 12/28/20 [Rx] Cinnamon Bark [Cinnamon] 500 mg PO DAILY 01/12/21 [History] Fluticasone Propionate [Flonase] 2 sprays IA DAILY 01/12/21 [History] Mirtazapine 15 mg PO BEDTIME 01/12/21 [History] Potassium Chloride 80 meq PO DAILY 01/12/21 [History] Levothyroxine Sodium [Synthroid] 75 mcg PO Q48H #0 01/15/21 [Rx] Levothyroxine [Synthroid] 50 mcg PO Q48H #30 tablet 01/15/21 [Rx] Past Medical History Other HEENT History: Minimal lower teeth, trouble chewing "SOFT diet", RIGHT Inner Ear issues Cardiovascular History: Reports: High Cholesterol Other Respiratory History: Issues with breathing, noted in hospital when goes to sleep O2 sats drop (maybe needs sleep apnea study) but when awake always good, Restless at night too. 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 LEGAL COUNSEL History: Reports: Other Musculoskeletal History: Fracture to Right Heel Neurological History: Reports: Neuropathy, Peripheral Psychiatric History: Reports: Anxiety Other Psychiatric History: Huge anxiety worse now with Pain Endocrine/Metabolic History: Reports: Hyperthyroidism, Hypokalemia, Hypomagnesemia, Hypothyroidism, Osteoporosis Oncologic (Cancer) History: Reports: Breast - Infectious Disease History Infectious Disease History: Reports: Chicken Pox, Influenza, Measles, Mumps - Past Surgical History Other GI Surgeries/Procedures: hx: Bowel obstruction with surgery Female Surgical History: Reports: Breast Biopsy Other Female Surgeries/Procedures: Numerous laparoscopies, eventually Hysterectomy. Cystitis Other Musculoskeletal Surgeries/Procedures:: Bilateral Total Knee Arthroplasties Social & Family History - Family History Family Medical History: No Pertinent Family History - Tobacco Use Tobacco Use Status *Q: Never Tobacco User - Caffeine Use Caffeine Use: Reports: None - Recreational Drug Use Recreational Drug Use: No ED ROS GENERAL - Review of Systems Review Of Systems: Comprehensive ROS is negative, except as noted in HPI. ED EXAM, GENERAL - Physical Exam Exam: See Below (see dictation) Course - Vital Signs Last Recorded V/S: Last Vital Signs Temp 96.8 F L 01/30/21 15:16 Pulse 87 01/30/21 18:47 Resp 16 01/30/21 18:47 BP 175/137 H 01/30/21 18:47 Pulse Ox 98 01/30/21 18:47 - Orders/Labs/Meds Orders: Active Orders 24 hr Category Date Time Status EKG Documentation Completion [RC] STAT Care 01/30/21 15:14 Active Sodium Chloride 0.9% [Saline Flush] Med 01/30/21 15:14 Active 10 ml FLUSH ASDIRECTED PRN Sodium Chloride 0.9% [Saline Flush] Med 01/30/21 15:14 Active 2.5 ml FLUSH ASDIRECTED PRN Saline Lock Insert [OM.PC] Stat Oth 01/30/21 15:14 Ordered Medication Orders Sodium Chloride (Sodium Chloride 0.9% 10 Ml Syringe) 10 ml FLUSH ASDIRECTED PRN PRN Reason: Keep Vein Open Last Admin: 01/30/21 15:38 Dose: 10 ml Documented by: NICOLAS Sodium Chloride (Sodium Chloride 0.9% 2.5 Ml Syringe) 2.5 ml FLUSH ASDIRECTED PRN PRN Reason: Keep Vein Open Last Admin: 01/30/21 15:38 Dose: 2.5 ml Documented by: NICOLAS Labs: Laboratory Tests 01/30/21 01/30/21 Range/Units 15:12 15:12 WBC 6.33 (4.0-11.0) K/uL RBC 4.30 (4.30-5.90) M/uL Hgb 11.5 L (12.0-16.0) g/dL Hct 35.1 L (36.0-46.0) % MCV 81.6 (80.0-98.0) fL MCH 26.7 L (27.0-32.0) pg MCHC 32.8 (31.0-37.0) g/dL RDW Std Deviation 44.1 (28.0-62.0) fl RDW Coeff of Nancy 15 (11.0-15.0) % Plt Count 286 (150-400) K/uL MPV 10.10 (7.40-12.00) fL Neut % (Auto) 62.7 (48.0-80.0) % Lymph % (Auto) 25.9 (16.0-40.0) % Hinds % (Auto) 9.5 (0.0-15.0) % Eos % (Auto) 1.7 (0.0-7.0) % Baso % (Auto) 0.2 (0.0-1.5) % Neut # (Auto) 4.0 (1.4-5.7) K/uL Lymph # (Auto) 1.6 (0.6-2.4) K/uL Hinds # (Auto) 0.6 (0.0-0.8) K/uL Eos # (Auto) 0.1 (0.0-0.7) K/uL Baso # (Auto) 0.0 (0.0-0.1) K/uL Nucleated RBC % 0.0 /100WBC Nucleated RBCs # 0 K/uL Sodium 141 (136-145) mmol/L Potassium 2.8 L (3.5-5.1) mmol/L Chloride 104 (98-107) mmol/L Carbon Dioxide 30.2 (21.0-32.0) mmol/L BUN 13 (7.0-18.0) mg/dL Creatinine 0.8 (0.6-1.0) mg/dL Est Cr Clr Drug Dosing 54.13 mL/min Estimated GFR (MDRD) > 60.0 ml/min Glucose 141 H (74-106) mg/dL Calcium 9.2 (8.5-10.1) mg/dL Total Bilirubin 0.3 (0.2-1.0) mg/dL AST 45 H (15-37) IU/L ALT 42 (14-63) IU/L Alkaline Phosphatase 90 (46-116) U/L Total Protein 6.5 (6.4-8.2) g/dL Albumin 3.2 L (3.4-5.0) g/dL Globulin 3.3 (2.6-4.0) g/dL Albumin/Globulin Ratio 1.0 (0.9-1.6) Meds: Medications Generic Name Dose Route Start Last Admin Trade Name Freq PRN Reason Stop Dose Admin Sodium Chloride 10 ml 01/30/21 15:14 01/30/21 15:38 Sodium Chloride 0.9% 10 Ml Syringe FLUSH 10 ml ASDIRECTED PRN Administration Keep Vein Open Sodium Chloride 2.5 ml 01/30/21 15:14 01/30/21 15:38 Sodium Chloride 0.9% 2.5 Ml Syringe FLUSH 2.5 ml ASDIRECTED PRN Administration Keep Vein Open Discontinued Medications Generic Name Dose Route Start Last Admin Trade Name Freq PRN Reason Stop Dose Admin Potassium Chloride 40 meq/ 100 mls @ 25 mls/hr 01/30/21 15:23 01/30/21 15:38 Premix IV 01/30/21 19:22 25 mls/hr ONETIME ONE Administration Sodium Chloride 1,000 mls @ 999 mls/hr 01/30/21 15:30 01/30/21 15:43 Normal Saline IV 01/30/21 16:30 125 mls/hr STAT ONE Infusion Departure - Departure Time of Disposition: 16:13 Disposition: Against Medical Advice 07 Clinical Impression: Hypokalemia - Discharge Information Referrals: PCP,Not In Area [Primary Care Provider] - Forms: ED Department Discharge Additional Instructions: The following information is given to patients seen in the emergency department who are being discharged to home. This information is to outline your options for follow-up care. We provide all patients seen in our emergency department with a follow-up referral. The need for follow-up, as well as the timing and circumstances, are variable depending upon the specifics of your emergency department visit. If you don't have a primary care physician on staff, we will provide you with a referral. We always advise you to contact your personal physician following an emergency department visit to inform them of the circumstance of the visit and for follow-up with them and/or the need for any referrals to a consulting specialist. The emergency department will also refer you to a specialist when appropriate. This referral assures that you have the opportunity for follow-up care with a specialist. All of these measure are taken in an effort to provide you with optimal care, which includes your follow-up. Under all circumstances we always encourage you to contact your private physician who remains a resource for coordinating your care. When calling for follow-up care, please make the office aware that this follow-up is from your recent emergency room visit. If for any reason you are refused follow-up, please contact the [facility] at and asked to speak to the emergency department charge nurse. [facility] [address] [place] [id number] [id number] 1. Continue to take your potassium at home as discussed. Close follow up with your primary care provider for repeat potassium as discussed. 2. Follow up with your primary care provider as discussed. Return to the ED as needed and as discussed. Sepsis Event Note (ED) - Evaluation Sepsis Screening Result: No Definite Risk - Focused Exam Vital Signs: Vital Signs Temp Pulse Resp BP Pulse Ox 01/30/21 18:47 87 16 175/137 H 98 01/30/21 17:10 81 16 160/69 H 99 01/30/21 16:10 84 16 138/67 98 01/30/21 15:16 96.8 F L 97 16 112/64 96 - My Orders Last 24 Hours: My Active Orders 01/30/21 15:14 EKG Documentation Completion [RC] STAT Sodium Chloride 0.9% [Saline Flush] 10 ml FLUSH ASDIRECTED PRN Sodium Chloride 0.9% [Saline Flush] 2.5 ml FLUSH ASDIRECTED PRN Saline Lock Insert [OM.PC] Stat - Assessment/Plan Last 24 Hours: My Active Orders 01/30/21 15:14 EKG Documentation Completion [RC] STAT Sodium Chloride 0.9% [Saline Flush] 10 ml FLUSH ASDIRECTED PRN Sodium Chloride 0.9% [Saline Flush] 2.5 ml FLUSH ASDIRECTED PRN Saline Lock Insert [OM.PC] Stat
[2021-01-30] MEDS ORDERED: Sodium Chloride 0.9% 1,000 ML IV ONE (15:30)
--- NOTE | 2021-01-30 15:33 | PCM.EKG ---
#1 Interpretation EKG Date: 01/30/21 Time: 15:32 EKG Interpretation Comments: EKG: NSR, nonspecific ST/T changes, Rate -83
[2021-01-30 15:47] LABS: BLOOD UREA NITROGEN,BUN 13 mg/dL (7.0-18.0); CARBON DIOXIDE,CO2 30.2 mmol/L (21.0-32.0); CHLORIDE,CL 104 mmol/L (98-107); GLUCOSE RANDOM 141 mg/dL (74-106); POTASSIUM,K 2.8 mmol/L (3.5-5.1); SODIUM,NA 141 mmol/L (136-145)
[2021-01-30 20:09] VITALS: BP 158/60; PULSE 90
== END 2021-01-30 20:00 | disposition left against medical advice (07) ==
LOC: MW.ED 14:48
DX: E87.6 Hypokalemia (principal); E78.00 Pure hypercholesterolemia, unspecified; Z53.8 Procedure and treatment not carried out for other reasons; Z88.6 Allergy status to analgesic agent; Z88.8 Allergy status to other drugs, medicaments and biological substances
CPT/HCPCS: 36415; 80053; 85025; 93005; 96365; 96366; 99284; J3480; J7030

== ENCOUNTER 2021-02-10 09:37 | Emergency (ER) | payer BC ==
[2021-02-10] MEDS ORDERED: Sodium Chloride 0.9% 10 ML Syringe FLUSH PRN (10:31)
[2021-02-10] MEDS ORDERED: Sodium Chloride 0.9% 2.5 ML Syringe FLUSH PRN (10:31)
--- NOTE | 2021-02-10 10:32 | EDM.PDOC ---
ED HPI GENERAL MEDICAL PROBLEM - General Chief Complaint: General Stated Complaint: POTASSIUM LEVELS POSSIBLY LOW Time Seen by Provider: 02/10/21 10:21 - History of Present Illness INITIAL COMMENTS - FREE TEXT/NARRATIVE: History of present illness: [] The patient says she feels lightheaded and weak with a little shortness of breath and pedal edema it all started a week ago when she had a potassium infusion she has the symptoms when her potassium is low. Patient gets quite anxious when she sits for a bit and seems to get more short of breath when she gets anxious them with exertion. Review of systems: As per history of present illness and below otherwise all systems reviewed and negative. Past medical history: As per history of present illness and as reviewed below otherwise noncontributory. Surgical history: As per history of present illness and as reviewed below otherwise noncontributory. Social history: No reported history of drug or alcohol abuse. Family history: As per history of present illness and as reviewed below otherwise noncontributory. Physical exam: Constitutional - well developed, well-nourished and in no acute distress HEENT - normocephalic, no evidence of trauma - external nose and mouth normal - no mass in neck and no JVD - mucosae moist EYES - full EOM, PERRL, no icterus - no evidence of inflammation, injection, or drainage Respiratory - no respiratory distress, equal bilateral expansion, lungs clear to auscultation and no abnormal lung sounds Cardiovascular - Regular Rhythm with S1 and S2 appreciated and no murmur, gallop or rub. GI - abdomen soft without distension or organomegaly - normal bowel sounds - no guard or rebound Musculoskeletal no gross deformity of long bones or joints -the patient has swelling of both feet -2+ pitting edema Neurologic - Alert and oriented times four - CN II-XII grossly intact - motor sensory and coordination symmetrically normal Psychiatric - appropriate mood and affect with normal thought content Hematologic - No petechiae or purpura - mucosa appropriate color and sclera not pale - normal nail bed color and refill Integument - no rash or evidence of trauma - normal turgor Diagnostics: [] Therapeutics: [] Impression: [] Plan: [] Definitive disposition and diagnosis as appropriate pending reevaluation and review of above. - Related Data Allergies Allergy/AdvReac Type Severity Reaction Status Date / Time diphenhydramine HCl Allergy Anaphylactic Verified 02/10/21 10:15 [From Benadryl] Shock scopolamine Allergy Nausea and Verified 02/10/21 10:15 Vomiting Home Meds: Home Meds Albuterol Sulfate [Proair Digihaler] 2 puff INH ASDIRECTED PRN 12/27/20 [History] Calcium Carb, Citrate/Vit D3 [Calcium + D3 ER Tablet] 1 tab PO DAILY 12/27/20 [History] Cholecalciferol (Vitamin D3) [Vitamin D] 1 tab PO DAILY 12/27/20 [History] Citalopram [Citalopram HBr] 40 mg PO DAILY 12/27/20 [History] DULoxetine [Cymbalta] 120 mg PO DAILY 12/27/20 [History] Folic Acid 5 mg PO DAILY 12/27/20 [History] Ibandronate [Boniva] 150 mg PO DAILY 12/27/20 [History] Magnesium 250 mg PO DAILY 12/27/20 [History] Omeprazole 20 mg PO DAILY 12/27/20 [History] atorvaSTATin [Lipitor] 40 mg PO BEDTIME 12/27/20 [History] Dextromethorphan/guaiFENesin [Robitussin DM] 10 ml PO Q4H PRN 5 Days #1 cup 12/28/20 [Rx] Cinnamon Bark [Cinnamon] 500 mg PO DAILY 01/12/21 [History] Fluticasone Propionate [Flonase] 2 sprays IA DAILY 01/12/21 [History] Mirtazapine 15 mg PO BEDTIME 01/12/21 [History] Potassium Chloride 80 meq PO DAILY 01/12/21 [History] Levothyroxine Sodium [Synthroid] 75 mcg PO Q48H #0 01/15/21 [Rx] Levothyroxine [Synthroid] 50 mcg PO Q48H #30 tablet 01/15/21 [Rx] Past Medical History Other HEENT History: Minimal lower teeth, trouble chewing "SOFT diet", RIGHT Inner Ear issues Cardiovascular History: Reports: High Cholesterol Other Respiratory History: Issues with breathing, noted in hospital when goes to sleep O2 sats drop (maybe needs sleep apnea study) but when awake always good, Restless at night too. / Maykel Spouse Genitourinary History: Reports: None [employer] History: Reports: Other Musculoskeletal History: Fracture to Right Heel Neurological History: Reports: Neuropathy, Peripheral Psychiatric History: Reports: Anxiety Other Psychiatric History: Huge anxiety worse now with Pain Endocrine/Metabolic History: Reports: Hyperthyroidism, Hypokalemia, Hypomagnesemia, Hypothyroidism, Osteoporosis Hematologic History: Reports: None Immunologic History: Reports: None Oncologic (Cancer) History: Reports: Breast Dermatologic History: Reports: None - Infectious Disease History Infectious Disease History: Reports: Chicken Pox, Influenza, Measles, Mumps - Past Surgical History Other GI Surgeries/Procedures: hx: Bowel obstruction with surgery Female Surgical History: Reports: Breast Biopsy Other Female Surgeries/Procedures: Numerous laparoscopies, eventually Hysterectomy. Cystitis Other Musculoskeletal Surgeries/Procedures:: Bilateral Total Knee Arthroplasties Social & Family History - Family History Family Medical History: No Pertinent Family History - Tobacco Use Tobacco Use Status *Q: Never Tobacco User Second Hand Smoke Exposure: No - Caffeine Use Caffeine Use: Reports: None - Recreational Drug Use Recreational Drug Use: No ED ROS GENERAL - Review of Systems Review Of Systems: Comprehensive ROS is negative, except as noted in HPI. ED EXAM, GENERAL - Physical Exam Exam: See Below Free Text/Narrative:: My physical exam is in the HPI Course - Vital Signs Last Recorded V/S: Last Vital Signs Temp 36.5 C 02/10/21 11:38 Pulse 85 02/10/21 11:38 Resp 20 02/10/21 11:38 BP 129/84 02/10/21 11:38 Pulse Ox 98 02/10/21 11:38 - Orders/Labs/Meds Orders: Active Orders 24 hr Category Date Time Status TSH ULTRASENSITIVE [CHEM] Stat Lab 02/10/21 11:46 Ordered Sodium Chloride 0.9% [Saline Flush] Med 02/10/21 10:31 Active 10 ml FLUSH ASDIRECTED PRN Sodium Chloride 0.9% [Saline Flush] Med 02/10/21 10:31 Active 2.5 ml FLUSH ASDIRECTED PRN Saline Lock Insert [OM.PC] Stat Oth 02/10/21 10:31 Ordered Medication Orders Sodium Chloride (Sodium Chloride 0.9% 10 Ml Syringe) 10 ml FLUSH ASDIRECTED PRN PRN Reason: Keep Vein Open Sodium Chloride (Sodium Chloride 0.9% 2.5 Ml Syringe) 2.5 ml FLUSH ASDIRECTED PRN PRN Reason: Keep Vein Open Labs: Laboratory Tests 02/10/21 02/10/21 02/10/21 Range/Units 10:39 10:48 10:48 WBC 7.00 (4.0-11.0) K/uL RBC 4.54 (4.30-5.90) M/uL Hgb 12.3 (12.0-16.0) g/dL Hct 37.1 (36.0-46.0) % MCV 81.7 (80.0-98.0) fL MCH 27.1 (27.0-32.0) pg MCHC 33.2 (31.0-37.0) g/dL RDW Std Deviation 45.2 (28.0-62.0) fl RDW Coeff of Nancy 15 (11.0-15.0) % Plt Count 282 (150-400) K/uL MPV 9.60 (7.40-12.00) fL Neut % (Auto) 63.7 (48.0-80.0) % Lymph % (Auto) 27.4 (16.0-40.0) % [place] % (Auto) 7.1 (0.0-15.0) % Eos % (Auto) 1.7 (0.0-7.0) % Baso % (Auto) 0.1 (0.0-1.5) % Neut # (Auto) 4.5 (1.4-5.7) K/uL Lymph # (Auto) 1.9 (0.6-2.4) K/uL [place] # (Auto) 0.5 (0.0-0.8) K/uL Eos # (Auto) 0.1 (0.0-0.7) K/uL Baso # (Auto) 0.0 (0.0-0.1) K/uL Nucleated RBC % 0.0 /100WBC Nucleated RBCs # 0 K/uL Sodium 143 (136-145) mmol/L Potassium 3.0 L (3.5-5.1) mmol/L Chloride 106 (98-107) mmol/L Carbon Dioxide 23.5 (21.0-32.0) mmol/L BUN 10 (7.0-18.0) mg/dL Creatinine 0.9 (0.6-1.0) mg/dL Est Cr Clr Drug Dosing 50.23 mL/min Estimated GFR (MDRD) > 60.0 ml/min Glucose 95 (74-106) mg/dL Calcium 9.0 (8.5-10.1) mg/dL Magnesium (1.8-2.4) mg/dL Total Bilirubin 0.4 (0.2-1.0) mg/dL AST 32 (15-37) IU/L ALT 41 (14-63) IU/L Alkaline Phosphatase 80 (46-116) U/L Total Protein 7.3 (6.4-8.2) g/dL Albumin 3.7 (3.4-5.0) g/dL Globulin 3.6 (2.6-4.0) g/dL Albumin/Globulin Ratio 1.0 (0.9-1.6) Urine Color YELLOW Urine Appearance CLEAR Urine pH 6.0 (5.0-8.0) Ur Specific [place] 1.020 (1.001-1.035) Urine Protein NEGATIVE (NEGATIVE) mg/dL Urine Glucose (UA) NEGATIVE (NEGATIVE) mg/dL Urine Ketones NEGATIVE (NEGATIVE) mg/dL Urine Occult Blood NEGATIVE (NEGATIVE) Urine Nitrite NEGATIVE (NEGATIVE) Urine Bilirubin NEGATIVE (NEGATIVE) Urine Urobilinogen 0.2 (<2.0) EU/dL Ur Leukocyte Esterase NEGATIVE (NEGATIVE) 02/10/21 Range/Units 10:48 WBC (4.0-11.0) K/uL RBC (4.30-5.90) M/uL Hgb (12.0-16.0) g/dL Hct (36.0-46.0) % MCV (80.0-98.0) fL MCH (27.0-32.0) pg MCHC (31.0-37.0) g/dL RDW Std Deviation (28.0-62.0) fl RDW Coeff of Nancy (11.0-15.0) % Plt Count (150-400) K/uL MPV (7.40-12.00) fL Neut % (Auto) (48.0-80.0) % Lymph % (Auto) (16.0-40.0) % [place] % (Auto) (0.0-15.0) % Eos % (Auto) (0.0-7.0) % Baso % (Auto) (0.0-1.5) % Neut # (Auto) (1.4-5.7) K/uL Lymph # (Auto) (0.6-2.4) K/uL [place] # (Auto) (0.0-0.8) K/uL Eos # (Auto) (0.0-0.7) K/uL Baso # (Auto) (0.0-0.1) K/uL Nucleated RBC % /100WBC Nucleated RBCs # K/uL Sodium (136-145) mmol/L Potassium (3.5-5.1) mmol/L Chloride (98-107) mmol/L Carbon Dioxide (21.0-32.0) mmol/L BUN (7.0-18.0) mg/dL Creatinine (0.6-1.0) mg/dL Est Cr Clr Drug Dosing mL/min Estimated GFR (MDRD) ml/min Glucose (74-106) mg/dL Calcium (8.5-10.1) mg/dL Magnesium 1.9 (1.8-2.4) mg/dL Total Bilirubin (0.2-1.0) mg/dL AST (15-37) IU/L ALT (14-63) IU/L Alkaline Phosphatase (46-116) U/L Total Protein (6.4-8.2) g/dL Albumin (3.4-5.0) g/dL Globulin (2.6-4.0) g/dL Albumin/Globulin Ratio (0.9-1.6) Urine Color Urine Appearance Urine pH (5.0-8.0) Ur Specific [place] (1.001-1.035) Urine Protein (NEGATIVE) mg/dL Urine Glucose (UA) (NEGATIVE) mg/dL Urine Ketones (NEGATIVE) mg/dL Urine Occult Blood (NEGATIVE) Urine Nitrite (NEGATIVE) Urine Bilirubin (NEGATIVE) Urine Urobilinogen (<2.0) EU/dL Ur Leukocyte Esterase (NEGATIVE) Meds: Medications Generic Name Dose Route Start Last Admin Trade Name Freq PRN Reason Stop Dose Admin Sodium Chloride 10 ml 02/10/21 10:31 Sodium Chloride 0.9% 10 Ml Syringe FLUSH ASDIRECTED PRN Keep Vein Open Sodium Chloride 2.5 ml 02/10/21 10:31 Sodium Chloride 0.9% 2.5 Ml Syringe FLUSH ASDIRECTED PRN Keep Vein Open Discontinued Medications Generic Name Dose Route Start Last Admin Trade Name Freq PRN Reason Stop Dose Admin Potassium Chloride 20 meq 02/10/21 11:41 Potassium Chloride 20 Meq Tab.Er PO 02/10/21 11:42 ONETIME ONE Departure - Departure Time of Disposition: 11:47 Disposition: Home, Self-Care 01 Condition: Good Clinical Impression: Hypokalemia, Pedal edema - Discharge Information Instructions: Hypokalemia, Peripheral Edema Referrals: PCP,Not In Area [Primary Care Provider] - Forms: ED Department Discharge Additional Instructions: Elevate your legs. Follow-up with your primary regarding your TSH your potassium and your edema. [facility] [address] [place], [place] [id number] [address] [id number] The following information is given to patients seen in the emergency department who are being discharged to home. This information is to outline your options for follow-up care. We provide all patients seen in our emergency department with a follow-up referral. The need for follow-up, as well as the timing and circumstances, are variable depending upon the specifics of your emergency department visit. If you don't have a primary care physician on staff, we will provide you with a referral. We always advise you to contact your personal physician following an emergency department visit to inform them of the circumstance of the visit and for follow-up with them and/or the need for any referrals to a consulting specialist. The emergency department will also refer you to a specialist when appropriate. This referral assures that you have the opportunity for follow-up care with a specialist. All of these measure are taken in an effort to provide you with optimal care, which includes your follow-up. Under all circumstances we always encourage you to contact your private physician who remains a resource for coordinating your care. When calling for f ollow-up care, please make the office aware that this follow-up is from your recent emergency room visit. If for any reason you are refused follow-up, please contact the [facility] Emergency Department at and asked to speak to the emergency department charge nurse. Sepsis Event Note (ED) - Evaluation Sepsis Screening Result: No Definite Risk - Focused Exam Vital Signs: Vital Signs Temp Pulse Resp BP Pulse Ox 02/10/21 11:38 36.5 C 85 20 129/84 98 02/10/21 10:11 36.6 C 92 18 153/86 H 98 - My Orders Last 24 Hours: My Active Orders 02/10/21 10:31 Sodium Chloride 0.9% [Saline Flush] 10 ml FLUSH ASDIRECTED PRN Sodium Chloride 0.9% [Saline Flush] 2.5 ml FLUSH ASDIRECTED PRN Saline Lock Insert [OM.PC] Stat 02/10/21 11:46 TSH ULTRASENSITIVE [CHEM] Stat - Assessment/Plan Last 24 Hours: My Active Orders 02/10/21 10:31 Sodium Chloride 0.9% [Saline Flush] 10 ml FLUSH ASDIRECTED PRN Sodium Chloride 0.9% [Saline Flush] 2.5 ml FLUSH ASDIRECTED PRN Saline Lock Insert [OM.PC] Stat 02/10/21 11:46 TSH ULTRASENSITIVE [CHEM] Stat
[2021-02-10 11:20] LABS: BLOOD UREA NITROGEN,BUN 10 mg/dL (7.0-18.0); CARBON DIOXIDE,CO2 23.5 mmol/L (21.0-32.0); CHLORIDE,CL 106 mmol/L (98-107); GLUCOSE RANDOM 95 mg/dL (74-106); SODIUM,NA 143 mmol/L (136-145)
[2021-02-10] MEDS ORDERED: Potassium Chloride 20 MEQ Tab.ER PO ONE (11:41)
[2021-02-10 12:17] VITALS: BP 109/72; PULSE 84
== END 2021-02-10 12:11 | disposition home or self-care (01) ==
LOC: MW.ED 09:37
DX: R60.0 Localized edema (principal); E87.6 Hypokalemia; E03.9 Hypothyroidism, unspecified; Z79.899 Other long term (current) drug therapy; Z88.8 Allergy status to other drugs, medicaments and biological substances
CPT/HCPCS: 36415; 80053; 81003; 83735; 84443; 85025; 99284; A9270